=== PATIENT | female | born 1970 | race Caucasian/White ===

== ENCOUNTER 2016-10-26 19:18 | Inpatient (IN) | payer OTHER ==
[~2016-10-26] VITALS: Ht 170.2 cm; Wt 108.9 kg
--- NOTE | 2016-10-26 19:38 | ED.ADGEN ---
Past History Past Medical History: Bipolar, High Cholesterol, Hypertension, Other Past Surgical History: Appendectomy, Cholecystectomy, , Other Alcohol Use: None Drug Use: None Adult General Chief Complaint Chief Complaint ".. I ve been so sick... so much diarrhea... I went at least 25 x last night... 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 I know what to do..... but I can't get over it... I am so dehydrated..." HPI HPI Patient is a 26 year old female who presents with above history and complaints of severe gastroenteritis with florid diarrhea. Patient has hx multiple watery diarrhea stools, she is in excess of 50 stools in the last 2 days. No true specific history of bad food. No recent travel. No history of immunosuppression. 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 Is on city water.. No exotic pets or ill pets. Patient does have a remote history of ischemic colitis problems. No history of C. difficile prior. Patient has been on doxycycline chronically for treatment of acne. Patient normally follows with Dr. Flores. Has seen Dr. Bermeo in past. Patient has tried over- the-counter meds including Imodium with no response. Reports severe episodes of cramping, gas and diarrhea she at times can not control. Patient now reports marked weakness, leg cramping and dizziness. Review of Systems Review of Systems Constitutional: Subjective history of fever or chills [] Eyes: Denies change in visual acuity, redness, or eye pain [] HENT: Denies nasal congestion or sore throat [] Respiratory: Denies cough or shortness of breath [] Cardiovascular: No additional information not addressed in HPI [] GI: Hx. of generalized abdominal pain, nausea, and an episodes of explosive watery diarrhea [] : Denies dysuria or hematuria [] Musculoskeletal: Denies back pain or joint pain [] Integument: History acne Neurologic: Denies headache, focal weakness or sensory changes [] Endocrine: Denies polyuria or polydipsia [] Family History Family History Noncontributory Current Medications Current Medications Current Medications Medications (Trade) Dose Ordered Sig/Shakira Start Time Stop Time Status Last Admin Dose Admin Famotidine (Pepcid) 20 mg 1X ONCE 10/26/16 20:00 10/26/16 20:01 DC 10/26/16 19:58 20 MG Lactated Ringer's (Iv Lactated Ringers) 1,000 ml @ 200 mls/hr Q5H 10/26/16 22:15 Metronidazole (Flagyl Premix) 100 ml @ 200 mls/hr 1X ONCE 10/26/16 20:00 10/26/16 20:29 DC 10/26/16 20:00 200 MLS/HR Morphine Sulfate (Morphine 10mg Syringe) 10 mg TID PRN PRN 10/26/16 22:15 10/26/16 22:43 10 MG Morphine Sulfate 10 mg 10 mg 1X ONCE 10/26/16 20:00 10/26/16 20:01 DC Ondansetron HCl (Zofran) 8 mg 1X ONCE 10/26/16 20:00 10/26/16 20:01 DC 10/26/16 20:00 8 MG Ondansetron HCl 8 mg 8 mg PRN Q4HRS PRN 10/26/16 22:15 10/27/16 22:14 Potassium Chloride (KCl Oral Soln) 40 meq 1X ONCE 10/26/16 20:45 10/26/16 20:46 DC 10/26/16 20:47 40 MEQ Allergies Allergies Allergies Coded Allergies Type Severity Reaction Last Updated Verified acetaminophen Allergy Intermediate Hives 09/07/16 Yes propoxyphene Allergy Intermediate Hives 09/07/16 Yes tetanus and diphtheria toxoids Allergy Intermediate Hives 09/07/16 Yes Physical Exam Physical Exam Constitutional: in acute distress, non-toxic appearance. [] HENT: Normocephalic, atraumatic, bilateral external ears normal, oropharynx dry , no oral exudates, nose normal. [] Acne Eyes: PERRLA, EOMI, conjunctiva normal, no discharge. [] Neck: Normal range of motion, no tenderness, supple, no stridor. [] Cardiovascular:Heart rate regular rhythm, no murmur, PMI to the left Lungs & Thorax: Bilateral breath sounds equal at apexes on auscultation [] Abdomen: Bowel sounds hyperactive, soft, no tenderness, no masses, no pulsatile masses. Old surgical scars. Mild rebound somewhat distended and tympanic. Deferred rectal at this time. Skin: Warm, dry, no erythema, acne Back: No tenderness, no CVA tenderness. [] Extremities: No tenderness, no cyanosis, no clubbing, ROM intact, no edema. Area of ecchymosis and bruising left upper arm. ( Injury from her dog). No true psoas or obturator appreciated Neurologic: Alert and oriented X 3, normal motor function, normal sensory function, no focal deficits noted. [] Psychologic: Affect anxious, judgement normal, mood normal. [] Current Patient Data Vital Signs Vital Signs Date Time Temp Pulse Resp B/P Pulse Ox O2 Delivery O2 Flow Rate FiO2 10/26/16 21:06 73 20 147/90 100 Room Air 10/26/16 19:33 98.7 Lab Results Laboratory Tests Test 10/26/16 19:45 10/26/16 20:05 White Blood Count 4.4x10^3/uL (4.0-11.0) Red Blood Count 4.68x10^6/uL (3.50-5.40) Hemoglobin 14.4g/dL (12.0-15.5) Hematocrit 42.4% (36.0-47.0) Mean Corpuscular Volume 91fL (79-100) Mean Corpuscular Hemoglobin 31pg (25-35) Mean Corpuscular Hemoglobin Concent 34g/dL (31-37) Red Cell Distribution Width 13.6% (11.5-14.5) Platelet Count 217x10^3/uL (140-400) Neutrophils (%) (Auto) 70% (31-73) Lymphocytes (%) (Auto) 18% (24-48) L Monocytes (%) (Auto) 12% (0-9) H Eosinophils (%) (Auto) 0% (0-3) Basophils (%) (Auto) 0% (0-3) Neutrophils # (Auto) 3.1x10^3uL (1.8-7.7) Lymphocytes # (Auto) 0.8x10^3/uL (1.0-4.8) L Monocytes # (Auto) 0.5x10^3/uL (0.0-1.1) Eosinophils # (Auto) 0.0x10^3/uL (0.0-0.7) Basophils # (Auto) 0.0x10^3/uL (0.0-0.2) Maternal Serum HCG Beta Subunit < 1mIU/mL (0-6) Sodium Level 139mmol/L (136-145) Potassium Level 2.8mmol/L (3.5-5.1) *L Chloride Level 102mmol/L (98-107) Carbon Dioxide Level 22mmol/L (21-32) Anion Gap 15 (6-14) H Blood Urea Nitrogen 7mg/dL (7-20) Creatinine 0.9mg/dL (0.6-1.0) Estimated GFR (Cockcroft-Gault) 67.7 Glucose Level 99mg/dL (70-99) Calcium Level 8.5mg/dL (8.5-10.1) Magnesium Level 1.8mg/dL (1.8-2.4) Total Bilirubin 0.3mg/dL (0.2-1.0) Direct Bilirubin 0.1mg/dL (0.0-0.2) Aspartate Amino Transferase (AST) 93U/L (15-37) H Alanine Aminotransferase (ALT) 167U/L (14-59) H Alkaline Phosphatase 130U/L (46-116) H Total Protein 7.5g/dL (6.4-8.2) Albumin 3.9g/dL (3.4-5.0) Lipase 112U/L (73-393) Urine Collection Type Unknown Urine Color Straw Urine Clarity Clear Urine pH 5.5 Urine Specific [place] <=1.005 Urine Protein Neg (NEG-TRACE) Urine Glucose (UA) Negmg/dL (NEG) Urine Ketones (Stick) 15mg/dL (NEG) Urine Blood Small (NEG) Urine Nitrite Neg (NEG) Urine Bilirubin Neg (NEG) Urine Urobilinogen Dipstick 0.2mg/dL (0.2 mg/dL) Urine Leukocyte Esterase Neg (NEG) Urine RBC Occ/HPF (0-2) Urine WBC Occ/HPF (0-4) Urine Squamous Epithelial Cells Many/LPF Urine Bacteria 0/HPF (0-FEW) EKG EKG I interpretation of EKG shows a sinus rhythm at 75 bpm. Nonspecific anterior lateral changes. No findings acute STEMI with contralateral changes [] Radiology/Procedures Radiology/Procedures I interpretation of acute abdomen shows no acute cardiopulmonary findings. There are surgical clips. Nonspecific bowel gas pattern. No free air under the diaphragm. [] Course & Med Decision Making Course & Med Decision Making Pertinent Labs and Imaging studies reviewed. (See chart for details) Discussed presentation, testing and treatment plan with Dr. Guo-Will admit for further evaluation and treatment, potassium replacement and hydration. C. difficile stool currently pending. [] Final Impression Final Impression 1. Gastroenteritis[] 2. Dehydration 3. Elevated alkaline phosphatase, ALT, AST 4. Critical hypokalemia 5. Elevated monocytes Problems: Dragon Disclaimer Dragon Disclaimer This electronic medical record was generated, in whole or in part, using a voice recognition dictation system. MAGI DOW MD Oct 26, 2016 19:38
[2016-10-26] MEDS ORDERED: ONDANSETRON PF 4 MG/2 ML VIAL. IV ONE (20:00)
[2016-10-26] MEDS ORDERED: FAMOTIDINE 20 MG/2 ML VIAL IVP ONE (20:00)
[2016-10-26] MEDS ORDERED: METRONIDAZOLE 500mg PREMIX 100 ML IV ONE (20:00)
[2016-10-26] MEDS: IV RINGERS SOLUTION,LACTATED 1,000 ML IV SCH ×3 (20:00→23:39)
[2016-10-26] MEDS ORDERED: MORPHINE SULFATE 10 MG/ML SYRINGE. SQ ONE (20:00)
[2016-10-26 20:11] LABS: BASO % 0 % (0-3); EOS % 0 % (0-3); HEMATOCRIT 42.4 % (36.0-47.0); HEMOGLOBIN 14.4 g/dL (12.0-15.5); LYMPH # 0.8 x10^3/uL (1.0-4.8); LYMPH % 18 % (24-48); MEAN CORPUSCULAR HEMOGLOBIN 31 pg (25-35); MEAN CORPUSCULAR HGB CONC 34 g/dL (31-37); MEAN CORPUSCULAR VOLUME 91 fL (79-100); MONO # 0.5 x10^3/uL (0.0-1.1); MONO % 12 % (0-9); NEUT # 3.1 x10^3uL (1.8-7.7); NEUT % 70 % (31-73); PLATELET COUNT 217 x10^3/uL (140-400); RED BLOOD COUNT 4.68 x10^6/uL (3.50-5.40); RED CELL DISTRIBUTION WIDTH 13.6 % (11.5-14.5); WHITE BLOOD COUNT 4.4 x10^3/uL (4.0-11.0)
[2016-10-26 20:18] LABS: ALBUMIN 3.9 g/dL (3.4-5.0); CALCIUM 8.5 mg/dL (8.5-10.1); CREATININE 0.9 mg/dL (0.6-1.0); DIRECT BILIRUBIN 0.1 mg/dL (0.0-0.2); GFR 67.7; TOTAL BILIRUBIN 0.3 mg/dL (0.2-1.0); TOTAL PROTEIN 7.5 g/dL (6.4-8.2)
[2016-10-26 20:21] LABS: POTASSIUM 2.8 mmol/L (3.5-5.1)
[2016-10-26 20:36] LABS: BACTERIA,URINE 0 /HPF (0-FEW); BILIRUBIN,URINE NEG (NEG); CLARITY,URINE CLEAR; COLOR,URINE STRAW; GLUCOSE,URINE NEG (NEG); NITRITE,URINE NEG (NEG); RBC,URINE OCC /HPF (0-2); SQUAMOUS EPITHELIAL CELL,UR MANY /LPF; UROBILINOGEN,URINE 0.2 mg/dL (0.2 mg/dL); WBC,URINE OCC /HPF (0-4)
[2016-10-26] MEDS ORDERED: POTASSIUM CHLORIDE 20 MEQ/15 ML ORAL LIQUID. PO ONE (20:45)
--- NOTE | 2016-10-26 22:28 | ACF ---
Admission Criteria Forms GASTROENTERITIS Clinical Indications for Admission to Inpatient Care (Place 'X' for any and all applicable criteria): Admission is indicated for ANY ONE of the following (1)(2)(3)(4)(5)(6): [X]I. Inpatient admission required rather than observation care (Also use Gastroenteritis: Observation Care as appropriate) because of ANY ONE of the following: [ ]a) Vomiting that is severe or persistent [X]b) Dehydration that is severe or persistent [ ]c) Hemodynamic instability that is severe or persistent [ ]d) Signs of intestinal obstruction or peritonitis [A] [ ]e) Hemolytic uremic syndrome is diagnosed. [ ]f) Absent bowel sounds with complete ileus (2) [ ]g) IV fluid to replace significant ongoing losses (greater than 3 L/m2 per day) [ ]h) Parenteral nutrition regimen that must be implemented on inpatient basis [ ]i) Other condition, treatment or monitoring requiring inpatient admission [ ]II. Suspected severe infection (eg, presence of high fever, severe or bloody diarrhea)(7)(8) [ ]III. Severe abdominal tenderness [ ]IV. Toxic megacolon Extended stay beyond goal length of stay may be needed for(4)(5)(6)(18) [ ]a) Persistent vital sign changes, severe electrolyte imbalance, or ongoing fluid losses that require continued hospitalization [ ]b) Other diagnosed cause for gastrointestinal symptoms (eg, intestinal obstruction,inflammatory bowel disease) that requires continued hospitalization [ ]c) Severe Clostridium difficile infection(8)(22) [ ]d) Bacterial dysentery(7) [ ]e) Radiation gastroenteritis [ ]f) Endoscopy with lesion [ ]g) Clinically significant medical comorbidities that require inpatient care [ ]h) Older patients (65 years or older) [ ]i) Hemolytic uremic syndrome (20) [ ]j) Toxic megacolon The original [employer] content created by [employer] has been revised. The portions of the content which have been revised are identified through the use of italic text or in bold, and [facility] has neither reviewed nor approved the modified material. All other unmodified content is copyright [facility]. Please see references footnoted in the original [facility] edition 2016 Admission Criteria Met?: Yes SRINIVASAN PERALES Oct 26, 2016 22:27
[2016-10-26] MEDS: MORPHINE SULFATE 10 MG/ML SYRINGE. SQ PRN (22:43)
--- NOTE | 2016-10-26 22:49 | EKG ---
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
[2016-10-26 23:39] VITALS: BP 148/95
[2016-10-26] MEDS: ONDANSETRON PF 4 MG/2 ML VIAL. IV PRN (23:49)
[2016-10-27] MEDS ORDERED: CLON0.5T PO (00:55)
[2016-10-27] MEDS ORDERED: DULO60CA6 PO (00:55)
[2016-10-27] MEDS ORDERED: DOXY100T9 PO (00:56)
[2016-10-27] MEDS ORDERED: METO100T5 PO (00:57)
[2016-10-27] MEDS ORDERED: NORT25CA PO (00:58)
[2016-10-27] MEDS ORDERED: TOPI50TA38 PO (00:59)
[2016-10-27] MEDS: IV RINGERS SOLUTION,LACTATED 1,000 ML IV SCH ×3 (03:41→13:15)
[2016-10-27] MEDS: ONDANSETRON PF 4 MG/2 ML VIAL. IV PRN ×2 (05:03→16:07)
[2016-10-27] MEDS: POTASSIUM CHLORIDE 20 MEQ/15 ML ORAL LIQUID. PO SCH ×2 (05:04→17:38)
[2016-10-27 05:20] VITALS: BP 142/87
[2016-10-27 06:40] LABS: BASO % 0 % (0-3); EOS % 1 % (0-3); HEMOGLOBIN 13.1 g/dL (12.0-15.5); LYMPH % 30 % (24-48); MEAN CORPUSCULAR HEMOGLOBIN 31 pg (25-35); MEAN CORPUSCULAR HGB CONC 34 g/dL (31-37); MEAN CORPUSCULAR VOLUME 91 fL (79-100); MONO # 0.4 x10^3/uL (0.0-1.1); MONO % 12 % (0-9); NEUT # 1.9 x10^3uL (1.8-7.7); NEUT % 57 % (31-73); PLATELET COUNT 185 x10^3/uL (140-400); RED BLOOD COUNT 4.28 x10^6/uL (3.50-5.40); RED CELL DISTRIBUTION WIDTH 13.6 % (11.5-14.5); WHITE BLOOD COUNT 3.4 x10^3/uL (4.0-11.0)
[2016-10-27 06:45] LABS: ALBUMIN 3.2 g/dL (3.4-5.0); CALCIUM 8.1 mg/dL (8.5-10.1); CREATININE 0.9 mg/dL (0.6-1.0); GFR 67.7; POTASSIUM 3.5 mmol/L (3.5-5.1); TOTAL BILIRUBIN 0.3 mg/dL (0.2-1.0); TOTAL PROTEIN 6.3 g/dL (6.4-8.2)
[2016-10-27] MEDS ORDERED: PROMETHAZINE 12.5 MG in IV NORMAL SALINE 50ML 50 ML IV PRN (07:45)
--- NOTE | 2016-10-27 07:54 | RAD ---
Acute abdomen series with chest, 3 views, 10/26/2016: History: Abdominal pain, nausea, diarrhea Gas is present in large and small bowel without significant bowel distention. There are scattered air-fluid levels in the GI tract. No free air is seen in the abdomen. Surgical clips are present in the right upper quadrant. There is no evidence of organomegaly. Small radiopacities in the right midabdomen are probably surgical sutures. The heart size is normal. No pulmonary infiltrate is seen. There is no evidence of pleural fluid. IMPRESSION: Scattered air-fluid levels in the GI tract suggests a mild ileus.
[2016-10-27] MEDS ORDERED: PROMETHAZINE 12.5 MG in IV NORMAL SALINE 50ML 50 ML IV ONE (08:00)
[2016-10-27] MEDS: DULOXETINE HCL 60 MG CAPSULE.DR. PO SCH ×2 (09:00→20:30)
[2016-10-27] MEDS: TOPIRAMATE 25 MG TABLET. PO SCH ×2 (09:00→20:31)
[2016-10-27] MEDS: METRONIDAZOLE 500 MG TABLET PO SCH ×2 (09:00→13:50)
[2016-10-27] MEDS ORDERED: MVI, ADULT NO.4 WITH VIT K 10 ML, FOLIC ACID 1 MG, THIAMINE 100 MG in IV DEXTROSE 5%-LA... IV ONE ×4 (09:00)
[2016-10-27] MEDS: CLONAZEPAM 0.5 MG TABLET PO SCH ×2 (09:00→20:30)
--- NOTE | 2016-10-27 11:38 | RAD ---
PROCEDURE CT abdomen pelvis with intravenous contrast and oral contrast. HISTORY Elevated liver enzymes and abdominal distention. Diarrhea for 2 days. TECHNIQUE After administration of oral and intravenous contrast, 75 milliliters Omnipaque 300, CT of the abdomen and pelvis was performed. Exposure: One or more of the following individualized dose reduction techniques were utilized for this examination: 1. Automated exposure control. 2. Adjustment of the mA and/or kV according to patient size. 3. Use of iterative reconstruction technique. COMPARISON None. FINDINGS Liver, spleen, pancreas, and bilateral adrenal glands are unremarkable. Gallbladder is absent. Bilateral kidneys enhance symmetrically. No bowel obstruction or inflammation is appreciated. Appendix is absent. Urinary bladder is unremarkable. Uterus and adnexa have unremarkable CT appearance. No free air or free fluid is seen in the abdomen or pelvis. IMPRESSION No acute abnormality identified in the abdomen or pelvis. Electronically signed by: Sylvester Putnam MD (Oct 27, 2016 11:38:05)
[2016-10-27 11:43] VITALS: BP 148/88
[2016-10-27] MEDS: PANTOPRAZOLE IV PUSH 40 MG VIAL. IVP SCH (13:52)
[2016-10-27 14:07] VITALS: BP 158/94
[2016-10-27] MEDS ORDERED: IV NORMAL SALINE 250ML 250 ML ONE (14:30)
--- NOTE | 2016-10-27 14:53 | HP ---
ADMIT DATE: 10/26/2016 REASON FOR ADMISSION: Severe diarrhea and dehydration. 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 Also, reported up to a week ago that her stomach had been bothering her. She had taken some Imodium, but had 20 stools and was definitely not feeling well. She had also seen the orthopedic physician for some problem she was having with her arm related to a [place] stepping on her arm. Last Tuesday night, she went to bed, she worked all day yesterday even though she was dizzy and had diarrhea. She barely made it to her car and called an ambulance from her car. She continued to have a large amount of diarrhea and came to the Emergency Room yesterday evening. Denies fever, but did have tachycardia. PAST MEDICAL HISTORY: 1. Migraine headaches, fatty liver, hypertension, tachycardia, acne. 2. Previous history of liver enzymes being elevated and some treatment by a music promoter at [facility], where she required an MRCP and actually had to have her sphincter of Oddi cut. PAST SURGICAL HISTORY: Appendectomy, 3 C-sections, endometrial ablation, sphincterotomy of the sphincter Oddi. ALLERGIES: TYLENOL, PROPOXYPHENE, TETANUS AND DIPHTHERIA TOXOIDS. MEDICATIONS: Reviewed and are available on the MAR. REVIEW OF SYSTEMS: Reports irregular periods, low estrogen level, recent trial with progesterone, weight loss of 25 pounds, which was intentional. 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 No tobacco, alcohol was not asked. OBJECTIVE: VITAL SIGNS: Blood pressure 142/87, pulse 72, respirations 18, pulse ox 100% on room air, and temperature 98.3. Height 67 inches, weight 239 pounds. GENERAL: A 46-year-old in moderate distress. HEENT: Her hearing was normal. Her eyes were clear. Her nose was patent. Tongue was dry. NECK: Supple. LUNGS: Clear to auscultation. CARDIOVASCULAR: Regular rhythm and rate. ABDOMEN: Mildly distended and tender throughout, particularly in the right lower quadrant. Bowel sounds were positive. EXTREMITIES: Without edema. I did not feel any cords. Left upper arm; some bruising from a dog stepping on her arm. SKIN: Face is flushed. NEUROLOGIC: Intact. LABORATORY DATA: White blood cell count this morning is 3.4 with mildly elevated monocytes. Chemistry at admission potassium was 2.8, 3.5 this morning. Liver function tests have more than doubled; AST is 228, ALT 258, alkaline phosphatase 128, and albumin is 3.2. Lipase is normal. CAT scan of the abdomen and pelvis also normal. ASSESSMENT: 1. Acute gastroenteritis, viral versus bacterial. The low white count points more to viral, hepatitis screen pending. 2. Hypokalemia, being replaced. 3. Elevated liver function tests, questionable etiology, probably due to gastroenteritis. 4. Gastroenteritis with diarrhea -- stool difficile pending. 5. Acne and had been on doxycycline for a prolonged period of time -- stool difficile pending. 6. Dehydration, being fluid replaced. 7. Nausea being treated. PLAN: IV fluids, bowel rest, monitor diarrhea, await the C. diff test, hold the doxycycline, give antiemetics and continue to support her symptoms. PAUL GUSTAFSON DO DR: OSIEL/adriana JOB#: [id number] / [id number]
[2016-10-27] MEDS: METRONIDAZOLE 500mg PREMIX 100 ML IV SCH ×2 (15:00→20:55)
[2016-10-27] MEDS: MORPHINE SULFATE 10 MG/ML SYRINGE. SQ PRN (16:16)
[2016-10-27] MEDS ORDERED: MAG HYDROX/AL HYDROX/SIMETH 30 ML ORAL.SUSP PO PRN (16:30)
[2016-10-27] MEDS: POTASSIUM CHLORIDE 40 MEQ in IV RINGERS SOLUTION,LACTATED 1,000 ML IV SCH ×2 (17:39→21:40)
[2016-10-27 19:00] VITALS: BP 155/91
[2016-10-27] MEDS ORDERED: PROMETHAZINE 25 MG/ML VIAL IV ONE (19:02)
[2016-10-27] MEDS ORDERED: IV NORMAL SALINE 50ML 50 ML ONE (19:02)
[2016-10-27] MEDS ORDERED: MORPHINE SULFATE 4 MG/ML DISP.SYRIN. IV ONE (19:30)
[2016-10-27] MEDS ORDERED: METOPROLOL SUCC 24HR ER 25 MG TAB.ER.24H. PO SCH (20:30)
[2016-10-27] MEDS ORDERED: MORPHINE SULFATE 4 MG/ML DISP.SYRIN. IV PRN (20:30)
[2016-10-27] MEDS: NORTRIPTYLINE 25 MG CAPSULE PO SCH (20:31)
--- NOTE | 2016-10-27 20:38 | RAD ---
PROCEDURE AP abdomen radiograph 10/27/2016 HISTORY Left lower quadrant abdominal pain with diarrhea. FINDINGS Two AP supine digital radiographs of the abdomen/pelvis were obtained. Comparison study is dated 10/27/2016. Surgical clips are seen within the right upper quadrant of the abdomen consistent with a cholecystectomy. The abdominal bowel gas pattern is nonobstructive. Contrast is seen within the distal transverse colon, the descending colon, the sigmoid colon and rectum. No radiopaque calculus is seen. The osseous structures are unchanged. IMPRESSION Nonobstructive bowel gas pattern. Electronically signed by: Singh Oconnor MD (Oct 27, 2016 20:36:23)
[2016-10-27] MEDS ORDERED: ATROPINE PO PRN (21:30)
[2016-10-27] MEDS ORDERED: HYOSCY PO PRN (21:30)
[2016-10-27] MEDS ORDERED: PHENOBARB PO PRN (21:30)
[2016-10-27] MEDS ORDERED: SCOP PO PRN (21:30)
[2016-10-27] MEDS ORDERED: ZOLPIDEM 5 MG TABLET. PO PRN (21:45)
[2016-10-27] MEDS: KETOROLAC 30 MG/ML VIAL. IV PRN (21:48)
[2016-10-27 22:45] VITALS: BP 125/80
[2016-10-28] MEDS: POTASSIUM CHLORIDE 40 MEQ in IV RINGERS SOLUTION,LACTATED 1,000 ML IV SCH ×2 (01:50→13:36)
[2016-10-28] MEDS: POTASSIUM CHLORIDE 20 MEQ/15 ML ORAL LIQUID. PO SCH ×2 (05:02→18:00)
[2016-10-28] MEDS: METRONIDAZOLE 500mg PREMIX 100 ML IV SCH ×3 (05:02→22:06)
[2016-10-28] MEDS: KETOROLAC 30 MG/ML VIAL. IV PRN ×4 (05:02→22:07)
[2016-10-28 05:25] VITALS: BP 142/94
[2016-10-28 06:44] LABS: BASO # 0.1 x10^3/uL (0.0-0.2); BASO % 2 % (0-3); EOS % 1 % (0-3); HEMATOCRIT 41.3 % (36.0-47.0); HEMOGLOBIN 13.7 g/dL (12.0-15.5); LYMPH % 28 % (24-48); MEAN CORPUSCULAR HEMOGLOBIN 31 pg (25-35); MEAN CORPUSCULAR HGB CONC 33 g/dL (31-37); MEAN CORPUSCULAR VOLUME 92 fL (79-100); MONO # 0.5 x10^3/uL (0.0-1.1); MONO % 14 % (0-9); NEUT # 1.9 x10^3uL (1.8-7.7); NEUT % 56 % (31-73); PLATELET COUNT 203 x10^3/uL (140-400); RED CELL DISTRIBUTION WIDTH 13.5 % (11.5-14.5); WHITE BLOOD COUNT 3.4 x10^3/uL (4.0-11.0)
[2016-10-28 07:01] LABS: ALBUMIN 3.3 g/dL (3.4-5.0); CREATININE 0.9 mg/dL (0.6-1.0); GFR 67.7; MAGNESIUM 1.7 mg/dL (1.8-2.4); POTASSIUM 4.5 mmol/L (3.5-5.1); TOTAL BILIRUBIN 0.3 mg/dL (0.2-1.0); TOTAL PROTEIN 6.6 g/dL (6.4-8.2)
[2016-10-28] MEDS ORDERED: HYOSCY PO PRN (07:45)
[2016-10-28] MEDS ORDERED: PHENOBARB PO PRN (07:45)
[2016-10-28] MEDS ORDERED: SCOP PO PRN (07:45)
[2016-10-28] MEDS ORDERED: ATROPINE PO PRN (07:45)
[2016-10-28] MEDS: PANTOPRAZOLE IV PUSH 40 MG VIAL. IVP SCH (08:48)
[2016-10-28] MEDS: TOPIRAMATE 25 MG TABLET. PO SCH ×2 (08:49→20:07)
[2016-10-28] MEDS: CLONAZEPAM 0.5 MG TABLET PO SCH ×2 (08:49→20:07)
[2016-10-28] MEDS: DULOXETINE HCL 60 MG CAPSULE.DR. PO SCH ×2 (08:49→20:07)
[2016-10-28] MEDS: METOPROLOL SUCC 24HR ER 100 MG TAB.ER.24H. PO SCH (08:49)
[2016-10-28 10:07] LABS: HCV ANTIBODY <0.1 s/co ratio (0.0-0.9); HEP A IGM ABDY Negative (Negative)
[2016-10-28 10:15] LABS: C DIFF BY PCR Negative (Negative)
[2016-10-28] MEDS ORDERED: MAGNESIUM SULFATE 1GM 100 ML IV ONE (10:30)
[2016-10-28 10:43] VITALS: BP 134/85
[2016-10-28 15:01] VITALS: BP 137/87
[2016-10-28] MEDS ORDERED: SACCHAROMYCES BOULARDII 250 MG CAPSULE. PO SCH (17:00)
[2016-10-28] MEDS: RINGERS LACTATED IV SCH ×2 (17:50→20:10)
[2016-10-28] MEDS: POTASSIUM CHLORIDE IV SCH ×2 (17:50→20:10)
--- NOTE | 2016-10-28 18:13 | RAD ---
PROCEDURE Complete abdomen ultrasound HISTORY Abdominal pain and diarrhea TECHNIQUE Grayscale and color Doppler sonography COMPARISON CT abdomen and pelvis October 27, 2016 FINDINGS Shadowing limits visualization of segments of the pancreas head and tail, distal aorta and majority of the IVC. The visualized segments of these structures are normal. Normal liver echogenicity. Superior segments of the liver poorly visualized due to rib shadowing. No liver mass documented. Normal direction of blood flow of the portal vein. No biliary ductal dilation the common bile duct has a diameter 4 millimeters. Cholecystectomy. Right renal length 10.7 centimeters. Left renal length 10.0 centimeters. Limited visualization of the lower poles of the kidneys due to shadowing. No renal mass or hydronephrosis evident. Spleen length 10.1 centimeters. IMPRESSION Normal exam. See above. Electronically signed by: German Rojas MD (Oct 28, 2016 18:12:20)
--- NOTE | 2016-10-28 18:15 | RAD ---
PROCEDURE Pelvic ultrasound HISTORY Left lower quadrant pelvic pain TECHNIQUE Transabdominal and transvaginal transducers utilized. COMPARISON CT abdomen and pelvis October 27 2016 FINDINGS Transabdominal imaging demonstrates anteverted uterus measuring 8.2 x 2.9 x 5.8 centimeters. Limited visualization of the endometrium, the telehealth nurse educator measures the endometrium thickness of 0.5 centimeters. Limited visualization of the ovaries, telehealth nurse educator measures structure labeled as left ovary as 1.8 x 1.4 x 2.1 centimeters and structure labeled as right ovary measures 1.8 x 1.3 x 2.0 centimeters. Transvaginal imaging demonstrates anteverted uterus measured as 7.7 x 2.7 x 4.7 centimeters. Shadowing limits visualization of the endometrium and uterine fundus, the telehealth nurse educator measures endometrium thickness as 0.7 centimeters. Limited visualization of the ovaries due to shadowing structure labeled as right ovary measured as 1.9 x 1.6 x 1.9 centimeters and structure labeled as left ovary measured as 1.7 x 1.3 x 1.7 centimeters. There is grossly intact bilateral ovarian blood flow documented by duplex Doppler sonography. No pelvic fluid. IMPRESSION Normal exam. Electronically signed by: German Rojas MD (Oct 28, 2016 18:14:49)
[2016-10-28 19:00] VITALS: BP 135/94
[2016-10-28] MEDS: NORTRIPTYLINE 25 MG CAPSULE PO SCH (20:07)
[2016-10-28] MEDS ORDERED: LOPERAMIDE 2 MG CAPSULE PO PRN (21:00)
[2016-10-28 23:26] VITALS: BP 117/77
--- NOTE | 2016-10-29 01:28 | PN ---
DATE: 10/28/2016 PROBLEMS: 1. Viral gastroenteritis. 2. Hypokalemia. 3. Hypomagnesemia. 4. Elevated liver function tests, now trending down. 5. Severe diarrhea, improving. 6. Dehydration, improving. 7. Nausea, improved. 8. History of sphincter of Oddi, sphincterotomy. SUBJECTIVE: This is a 46-year-old female admitted with severe diarrhea, dehydration, hypokalemia and now has developed some left lower quadrant pain. She has had a CAT scan, which was negative and a KUB last night, which was negative. She has a slightly low white count pointing to viral etiology. She is somewhat bloated. She is still having stools, much less than before. She has had about six as of 2 p.m., but is having some abdominal pain. OBJECTIVE: GENERAL: Intake 4350, output 3300 plus 1050. VITAL SIGNS: Blood pressure 134/85, pulse 59, respirations 18, pulse ox is 99% on room air. HEENT: Face is flushed. Tongue is moist than it was. She has two cold sores on the top of her hip that are resolving. LUNGS: Clear. CARDIOVASCULAR: Regular rhythm and rate. ABDOMEN: Moderately distended, good bowel sounds throughout and moderately tender in the left lower and right quadrant. The patient is on her menses. LABORATORY DATA: Today, potassium is 4.5, slightly elevated chloride, magnesium 1.7, calcium little bit low at 8 with an albumin of 3.3. AST is 92, ALT is 201, alkaline phosphatase is 123. They are trending back down. Abdominal ultrasound is scheduled for a little bit later on today. PLAN: I spoke with the precision farming coordinator and I discussed her case with Dr. Guo. We will await the results of the ultrasound. Continue IV fluids. Perhaps IV Flagyl could be giving her more abdominal pain or discomfort, and may discontinue it as we are just covering her for gastroenteritis. Stool cultures still pending. We will see her again tomorrow. PAUL GUSTAFSON DO DR: OSIEL/adriana JOB#: [id number] / [id number]
[2016-10-29] MEDS: METRONIDAZOLE 500mg PREMIX 100 ML IV SCH (05:51)
[2016-10-29 06:10] VITALS: BP 127/80
[2016-10-29 06:51] LABS: BASO % 1 % (0-3); EOS # 0.1 x10^3/uL (0.0-0.7); EOS % 2 % (0-3); HEMATOCRIT 39.8 % (36.0-47.0); HEMOGLOBIN 13.2 g/dL (12.0-15.5); LYMPH # 0.8 x10^3/uL (1.0-4.8); LYMPH % 30 % (24-48); MEAN CORPUSCULAR HEMOGLOBIN 30 pg (25-35); MEAN CORPUSCULAR HGB CONC 33 g/dL (31-37); MEAN CORPUSCULAR VOLUME 91 fL (79-100); MONO # 0.4 x10^3/uL (0.0-1.1); MONO % 14 % (0-9); NEUT # 1.5 x10^3uL (1.8-7.7); NEUT % 54 % (31-73); PLATELET COUNT 168 x10^3/uL (140-400); RED BLOOD COUNT 4.36 x10^6/uL (3.50-5.40); RED CELL DISTRIBUTION WIDTH 13.4 % (11.5-14.5); WHITE BLOOD COUNT 2.7 x10^3/uL (4.0-11.0)
[2016-10-29 06:56] LABS: CALCIUM 8.3 mg/dL (8.5-10.1); CREATININE 0.8 mg/dL (0.6-1.0); GFR 77.6; MAGNESIUM 2.1 mg/dL (1.8-2.4); POTASSIUM 4.6 mmol/L (3.5-5.1); TOTAL BILIRUBIN 0.2 mg/dL (0.2-1.0)
[2016-10-29] MEDS ORDERED: PANTOPRAZOLE 40 MG TABLET. PO SCH (07:30)
[2016-10-29 08:17] VITALS: BP 127/80
[2016-10-29] MEDS: METOPROLOL SUCC 24HR ER 100 MG TAB.ER.24H. PO SCH (08:17)
[2016-10-29] MEDS: CLONAZEPAM 0.5 MG TABLET PO SCH (08:17)
[2016-10-29] MEDS: TOPIRAMATE 25 MG TABLET. PO SCH (08:17)
[2016-10-29] MEDS: DULOXETINE HCL 60 MG CAPSULE.DR. PO SCH (08:17)
--- NOTE | 2016-10-29 10:07 | DS ---
DATE OF DISCHARGE: 10/26/2016 DISCHARGE DIAGNOSES: 1. Viral gastritis. 2. Hypokalemia, resolved. 3. Hypomagnesemia, resolved. 4. Elevated liver function tests trending down. 5. Severe diarrhea, resolved. 6. Dehydration, resolved. 7. Nausea, resolved. 8. History of sphincter of Oddi dysfunction. 9. Moderate protein malnutrition secondary to prolonged n.p.o. HOSPITAL COURSE: A 46-year-old female who was admitted with severe diarrhea, dehydration, and hypokalemia. She also developed some abdominal pain during her hospitalization and subsequent KUB ultrasound and CAT scan of the abdomen and pelvis was negative. She was aggressively treated with IV fluids and antiemetics, covered with metronidazole, and received pain medication. On the day of discharge, she was feeling much better and not had a stool since yesterday evening. OBJECTIVE: VITAL SIGNS: Blood pressure 127/80, pulse 65, respirations 18, and temperature is 98.4. HEENT: Face is flushed. Her tongue was moist. No longer ____ her tongue. NECK: Supple. LUNGS: Clear. CARDIOVASCULAR: Regular rhythm and rate. ABDOMEN: Soft and less distended. Bowel sounds positive. Minimal pain in the left lower quadrant. EXTREMITIES: Without edema. LABORATORY DATA: White cell count is 2.7. CMP shows elevated chloride most likely secondary to IV fluids, but calcium up to 8.3. AST is 48 down from a maximum of 228 and ALT 133 down from 258. Normal alkaline phosphatase now. Albumin is 3.0. DISPOSITION: To home. MEDICATIONS: See MRAD. Take it easy over the weekend. Eat soft diet. Have blood test rechecked for the low white count and her liver function. Also during her hospitalization I discussed her case with Dr. Guo and her cutter grinder. PAUL GUSTAFSON DO DR: OSIEL/adriana JOB#: [id number] / [id number]
== END 2016-10-29 10:05 | disposition home or self-care (01) | DRG 392 ==
LOC: ER 19:26 → 1 SOUTH 22:24
PROVIDERS: ADMIT Family Medicine; ATTEND Family Medicine
DX: A08.4 Viral intestinal infection, unspecified (principal); E44.0 Moderate protein-calorie malnutrition; E78.00 Pure hypercholesterolemia, unspecified; E83.42 Hypomagnesemia; E86.0 Dehydration; E87.6 Hypokalemia; G43.909 Migraine, unspecified, not intractable, without status migrainosus; I10 Essential (primary) hypertension; K76.0 Fatty (change of) liver, not elsewhere classified; Z87.19 Personal history of other diseases of the digestive system; Z90.49 Acquired absence of other specified parts of digestive tract; Z88.1 Allergy status to other antibiotic agents; Z88.8 Allergy status to other drugs, medicaments and biological substances; Z88.7 Allergy status to serum and vaccine; Z68.37 Body mass index [BMI] 37.0-37.9, adult
CPT/HCPCS: 36415; 74000; 74022; 74177; 76700; 76830; 76856; 80048; 80053; 80074; 80076; 81001; 83690; 83735; 84702; 85027; 87040; 87045; 87324; 93005; 96374; 96375; C9113; G0238; J1885; J2270; J2405; J2550; J3475; J3490; J7120; S0028; 99285-25

== ENCOUNTER 2017-01-25 14:15 | Emergency (ER) | payer OTHER ==
[~2017-01-25 14:15] MED LIST: CLON0.5T PO; DOXY100T9 PO; DULO60CA6 PO; METO100T5 PO; NORT25CA PO; TOPI50TA38 PO
[2017-01-25] MEDS ORDERED: IV NORMAL SALINE 1,000ML 1,000 ML IV ONE (15:00)
[2017-01-25 15:09] LABS: BASO % 0 % (0-3); EOS % 0 % (0-3); HEMATOCRIT 42.3 % (36.0-47.0); HEMOGLOBIN 14.6 g/dL (12.0-15.5); LYMPH # 1.9 x10^3/uL (1.0-4.8); LYMPH % 23 % (24-48); MEAN CORPUSCULAR HEMOGLOBIN 31 pg (25-35); MEAN CORPUSCULAR HGB CONC 34 g/dL (31-37); MEAN CORPUSCULAR VOLUME 89 fL (79-100); MONO # 0.4 x10^3/uL (0.0-1.1); MONO % 5 % (0-9); NEUT # 5.8 x10^3uL (1.8-7.7); NEUT % 71 % (31-73); PLATELET COUNT 224 x10^3/uL (140-400); RED BLOOD COUNT 4.75 x10^6/uL (3.50-5.40); RED CELL DISTRIBUTION WIDTH 13.5 % (11.5-14.5); WHITE BLOOD COUNT 8.3 x10^3/uL (4.0-11.0)
[2017-01-25] MEDS ORDERED: KETOROLAC 30 MG/ML VIAL. IV ONE (15:10)
[2017-01-25] MEDS ORDERED: ONDANSETRON PF 4 MG/2 ML VIAL. IV ONE (15:10)
[2017-01-25 15:11] LABS: POTASSIUM 3.8 mmol/L (3.5-5.1)
[2017-01-25 15:13] LABS: BILIRUBIN,URINE NEG (NEG); CLARITY,URINE HAZY; COLOR,URINE YELLOW; GLUCOSE,URINE NEG (NEG)
[2017-01-25 15:14] LABS: AMORPHOUS SEDIMENT,UR PRESENT /HPF; BACTERIA,URINE FEW /HPF (0-FEW); GRANULAR CASTS,URINE OCC /HPF; NITRITE,URINE NEG (NEG); RBC,URINE OCC /HPF (0-2); SQUAMOUS EPITHELIAL CELL,UR FEW /LPF; UROBILINOGEN,URINE 0.2 mg/dL (0.2 mg/dL); WBC,URINE OCC /HPF (0-4)
[2017-01-25] MEDS: fentaNYL PF 100 MCG/2 ML VIAL IV PRN ×2 (16:19→18:01)
--- NOTE | 2017-01-25 16:30 | PHYS DOC ---
Past History Past Medical History: Bipolar, High Cholesterol, Hypertension, Other Past Surgical History: Appendectomy, Cholecystectomy, , Other Alcohol Use: None Drug Use: None Adult General Chief Complaint Chief Complaint: FLANK PAIN HPI HPI Patient is a 46 year old female who presents with right sided back pain. She reports pain x 6 days with no trauma. Pain is in lower back, occasionally radiates to flank & right groin. She reports urinary frequency, urgency, dysuria. She denies fevers/chills, nausea, vomiting, diarrhea, constipation, hematuria, vaginal bleeding, discharge. No lower extremity numbness/weakness, saddle anesthesia, bowel/bladder incontinence/retention. Denies history of previous similar pain. History of appendectomy & cholecystectomy. PCP is DR. Jones. Review of Systems Review of Systems Constitutional: Denies fever or chills Eyes: Denies change in visual acuity HENT: Denies nasal congestion or sore throat Respiratory: Denies cough or shortness of breath Cardiovascular: Denies chest pain GI: REports abdominal pain, denies nausea, vomiting, bloody stools or diarrhea : Reports dysuria denies hematuria Musculoskeletal: Reports back pain, denies joint pain Integument: Denies rash or skin lesions Neurologic: Denies headache, focal weakness or sensory changes Current Medications Current Medications Current Medications Medications (Trade) Dose Ordered Sig/Shakira Start Time Stop Time Status Last Admin Dose Admin Fentanyl Citrate (Fentanyl 2ml Vial) 50 mcg PRN Q15MIN PRN 01/25/17 16:00 01/26/17 15:59 01/25/17 16:19 50 MCG Ketorolac Tromethamine (Toradol) 30 mg 1X ONCE 01/25/17 15:10 01/25/17 15:11 DC 01/25/17 15:00 30 MG Ondansetron HCl (Zofran) 4 mg 1X ONCE 01/25/17 15:10 01/25/17 15:11 DC 01/25/17 15:00 4 MG Sodium Chloride 1,000 ml @ 1,000 mls/hr 1X ONCE 01/25/17 15:00 01/25/17 15:59 DC 01/25/17 15:00 1,000 MLS/HR Allergies Allergies Allergies Coded Allergies Type Severity Reaction Last Updated Verified acetaminophen Allergy Intermediate Hives 09/07/16 Yes propoxyphene Allergy Intermediate Hives 09/07/16 Yes tetanus and diphtheria toxoids Allergy Intermediate Hives 09/07/16 Yes Physical Exam Physical Exam Constitutional: obese, no acute distress, non-toxic appearance. HENT: Normocephalic, atraumatic, bilateral external ears normal, oropharynx moist, nose normal. Eyes: conjunctiva normal, no discharge. Neck: supple, no stridor. Cardiovascular: RRR, no murmurs, no edema. Lungs & Thorax: LCTAB, no wheezing, no respiratory distress. Abdomen: soft, nontender, nondistended. no masses or pulsatile masses, no rebound/guarding Skin: Warm, dry, no erythema, no rash. Back: right lower back tenderness with palpation, no CVA tenderness or spinal tenderness, no step offs.. Extremities: No tenderness, no edema. Neurologic: Alert and oriented X 3, symmetric strength/sensation to LE, no focal deficits noted. Psychologic: Affect normal, judgement normal, mood normal. Current Patient Data Vital Signs Vital Signs Date Time Temp Pulse Resp B/P (MAP) Pulse Ox O2 Delivery O2 Flow Rate FiO2 01/25/17 16:19 18 98 Room Air 01/25/17 16:02 78 130/76 (94) Lab Results Laboratory Tests Test 01/25/17 14:45 01/25/17 14:50 01/25/17 14:58 White Blood Count 8.3 x10^3/uL (4.0-11.0) Red Blood Count 4.75 x10^6/uL (3.50-5.40) Hemoglobin 14.6 g/dL (12.0-15.5) Hematocrit 42.3 % (36.0-47.0) Mean Corpuscular Volume 89 fL (79-100) Mean Corpuscular Hemoglobin 31 pg (25-35) Mean Corpuscular Hemoglobin Concent 34 g/dL (31-37) Red Cell Distribution Width 13.5 % (11.5-14.5) Platelet Count 224 x10^3/uL (140-400) Neutrophils (%) (Auto) 71 % (31-73) Lymphocytes (%) (Auto) 23 % (24-48) L Monocytes (%) (Auto) 5 % (0-9) Eosinophils (%) (Auto) 0 % (0-3) Basophils (%) (Auto) 0 % (0-3) Neutrophils # (Auto) 5.8 x10^3uL (1.8-7.7) Lymphocytes # (Auto) 1.9 x10^3/uL (1.0-4.8) Monocytes # (Auto) 0.4 x10^3/uL (0.0-1.1) Eosinophils # (Auto) 0.0 x10^3/uL (0.0-0.7) Basophils # (Auto) 0.0 x10^3/uL (0.0-0.2) Sodium Level 140 mmol/L (136-145) Potassium Level 3.8 mmol/L (3.5-5.1) Chloride Level 106 mmol/L (98-107) Carbon Dioxide Level 23 mmol/L (21-32) Anion Gap 11 (6-14) Blood Urea Nitrogen 11 mg/dL (7-20) Creatinine 1.0 mg/dL (0.6-1.0) Estimated GFR (Cockcroft-Gault) 60.0 Glucose Level 103 mg/dL (70-99) H Calcium Level 9.0 mg/dL (8.5-10.1) Urine Collection Type Void Urine Color Yellow Urine Clarity Hazy Urine pH 7.0 Urine Specific [place] 1.020 Urine Protein 30 mg/dl (NEG-TRACE) Urine Glucose (UA) Neg mg/dL (NEG) Urine Ketones (Stick) Trace mg/dL (NEG) Urine Blood Neg (NEG) Urine Nitrite Neg (NEG) Urine Bilirubin Neg (NEG) Urine Urobilinogen Dipstick 0.2 mg/dL (0.2 mg/dL) Urine Leukocyte Esterase Neg (NEG) Urine RBC Occ /HPF (0-2) Urine WBC Occ /HPF (0-4) Urine Squamous Epithelial Cells Few /LPF Urine Amorphous Sediment Present /HPF Urine Bacteria Few /HPF (0-FEW) Urine Granular Casts Occ /HPF Urine Mucus Slight /LPF POC Urine HCG, Qualitative hcg negative (Negative) EKG EKG [] Radiology/Procedures Radiology/Procedures PROCEDURE: CT ABDOMEN PELVIS WO CONTRAST Examination: CT of the abdomen and pelvis without contrast HISTORY: History of right flank pain radiating to the right lower quadrant COMPARISON: 10/27/2016 TECHNIQUE: Axial CT images of the abdomen and pelvis were performed without contrast. Coronal and sagittal reformats were performed Exposure: One or more of the following individualized dose reduction techniques were utilized for this examination: 1. Automated exposure control 2. Adjustment of the mA and/or kV according to patient size 3. Use of iterative reconstruction technique. Findings: The visualized bibasilar lungs grossly appears unremarkable. No evidence of free air identified in the abdomen. The evaluation of the solid organs is limited due to lack of IV contrast. The evaluation of the bowel is limited due to lack of oral contrast. The visualized noncontrasted liver, spleen, adrenals grossly appears unremarkable. Cholecystectomy clips identified. The visualized pancreas grossly appears unremarkable. The stomach is mildly distended. The small bowel is nondilated Prior changes of appendectomy. Feces and gas noted in the colon. Urinary bladder is mildly distended. Faint fat stranding identified superior to the urinary bladder. Small amount of free fluid identified in the pelvis. No evidence of intrarenal collecting system calculi or hydronephrosis. The caliber of the aorta grossly appears unremarkable. No evidence of any bony destructive lesion. Mild degenerative changes lumbar spine. IMPRESSION: 1. Faint fat stranding identified just superior to the urinary bladder. Correlate for cystitis otherwise no acute intra-abdominal findings. 2. No evidence of intrarenal collecting system calculi or hydronephrosis. 3. Prior changes of cholecystectomy, appendectomy. 4. Small amount of free fluid identified in the pelvis, nonspecific. Electronically signed by: Omkar Diallo MD (01/25/2017 5:36 PM) DICTATED AND SIGNED BY: OMKAR DIALLO MD DATE: 01/25/17 1731[] Course & Med Decision Making Course & Med Decision Making Pertinent Labs and Imaging studies reviewed. (See chart for details) The patient presents with lower back pain. Symptoms suggestive of kidney stone but no blood in urine, no evidence of pyelonephritis. Discussed results with patient. She has ongoing pain & would like reassurance or answers with further workup. We decided to proceed with CT to evaluate for possible stone even though she had previous history of abdominal CT. We did discuss risks vs. benefits of additional radiation exposure. CT showed no evidence of stone, possible cystitis. With her reported urinary symptoms, will give cipro for UTI ; clinically I do not suspect pyelonephritis based on exam, lack of fever, normal WBC. Will also encourage ibuprofen & give prescriptions for norco & flexeril as likely some musculoskeletal component as well. Recommend rest & PO hydration, follow up with PCP in 2-3 days if not improving. Return for high fever, severe pain, uncontrolled vomiting, any otherwise worsening condition. Discharged home in stable condition. [] Dragon Disclaimer Dragon Disclaimer This chart was dictated in whole or in part using Voice Recognition software in a busy, high-work load, and often noisy Emergency Department environment. It may contain unintended and wholly unrecognized errors or omissions. Departure Departure: Impression: Primary Impression: Back pain Additional Impression: Cystitis Disposition: HOME, SELF-CARE Condition: STABLE Referrals: MARISOL JONES MD (PCP) Patient Instructions: Back Pain, Adult, [id number], Interstitial Cystitis Additional Instructions: You were seen in the emergency department today for back pain. Tests did not show an obvious definite cause of symptoms. CT scan was suggestive of cystitis. Take prescribed antibiotics. Also take ibuprofen every 8 hours for pain, [place] for severe pain, Flexeril for muscle spasm. Follow-up with primary care physician if not improving in 2-3 days. Return to the emergency department for high fever, severe abdominal pain or flank pain, uncontrolled vomiting, numbness or weakness in arms or legs, loss of control of bowels or bladder, any otherwise worsening condition. Scripts Cyclobenzaprine Hcl (CYCLOBENZAPRINE HCL) 5 Mg Tablet 1 TAB PO TID, #10 TAB Prov: JACOB CRISOSTOMO MD 01/25/17 Hydrocodone Bit/Acetaminophen (NORCO 5-325 TABLET) 1 Each Tablet 1-2 TAB PO Q4-6HRS Y for SEVERE PAIN, #10 TAB Prov: JACOB CRISOSTOMO MD 01/25/17 Ciprofloxacin Hcl (CIPRO) 250 Mg Tablet 1 TAB PO BID, #6 TAB Prov: JACOB CRISOSTOMO MD 01/25/17 Problem Qualifiers JACOB CRISOSTOMO MD Jan 25, 2017 16:30
--- NOTE | 2017-01-25 17:40 | RAD ---
Examination: CT of the abdomen and pelvis without contrast HISTORY: History of right flank pain radiating to the right lower quadrant COMPARISON: 10/27/2016 TECHNIQUE: Axial CT images of the abdomen and pelvis were performed without contrast. Coronal and sagittal reformats were performed Exposure: One or more of the following individualized dose reduction techniques were utilized for this examination: 1. Automated exposure control 2. Adjustment of the mA and/or kV according to patient size 3. Use of iterative reconstruction technique. Findings: The visualized bibasilar lungs grossly appears unremarkable. No evidence of free air identified in the abdomen. The evaluation of the solid organs is limited due to lack of IV contrast. The evaluation of the bowel is limited due to lack of oral contrast. The visualized noncontrasted liver, spleen, adrenals grossly appears unremarkable. Cholecystectomy clips identified. The visualized pancreas grossly appears unremarkable. The stomach is mildly distended. The small bowel is nondilated Prior changes of appendectomy. Feces and gas noted in the colon. Urinary bladder is mildly distended. Faint fat stranding identified superior to the urinary bladder. Small amount of free fluid identified in the pelvis. No evidence of intrarenal collecting system calculi or hydronephrosis. The caliber of the aorta grossly appears unremarkable. No evidence of any bony destructive lesion. Mild degenerative changes lumbar spine. IMPRESSION: 1. Faint fat stranding identified just superior to the urinary bladder. Correlate for cystitis otherwise no acute intra-abdominal findings. 2. No evidence of intrarenal collecting system calculi or hydronephrosis. 3. Prior changes of cholecystectomy, appendectomy. 4. Small amount of free fluid identified in the pelvis, nonspecific. Electronically signed by: Omkar Diallo MD (01/25/2017 5:36 PM)
[2017-01-25] MEDS ORDERED: CYCL5TAB PO (18:17)
[2017-01-25] MEDS ORDERED: HYDR-971 PO (18:17)
[2017-01-25] MEDS ORDERED: CIPROFLOXACIN HCL 500 MG TABLET ONE (18:17)
[2017-01-25] MEDS ORDERED: CIPR250T30 PO (18:17)
[2017-01-25] MEDS ORDERED: CIPROFLOXACIN HCL 500 MG TABLET PO ONE (18:30)
[2017-01-25 18:49] VITALS: BP 135/92
== END 2017-01-25 18:52 | disposition home or self-care (01) ==
LOC: ER 14:15
DX: N30.90 Cystitis, unspecified without hematuria (principal); E78.00 Pure hypercholesterolemia, unspecified; I10 Essential (primary) hypertension; F31.9 Bipolar disorder, unspecified; Z88.6 Allergy status to analgesic agent; Z88.7 Allergy status to serum and vaccine; Z88.8 Allergy status to other drugs, medicaments and biological substances
CPT/HCPCS: 36415; 74176; 80048; 81001; 81025; 85027; 96361; 96374; 96375; 96376; 99285; J1885; J2405; J3010; J7030

== ENCOUNTER 2017-02-19 13:38 | Emergency (ER) | payer OTHER ==
[~2017-02-19 13:38] MED LIST changes: +CIPR250T30 PO; +CYCL5TAB PO; +HYDR-971 PO
[2017-02-19 13:45] VITALS: BP 155/101
[2017-02-19] MEDS ORDERED: HYDR-971 PO (14:13)
[2017-02-19] MEDS ORDERED: NABU500T PO (14:13)
--- NOTE | 2017-02-19 14:13 | PHYS DOC ---
Past History Past Medical History: Bipolar, High Cholesterol, Hypertension, Other Past Surgical History: Appendectomy, Cholecystectomy, , Other Alcohol Use: None Drug Use: None Adult General Chief Complaint Chief Complaint: right knee pain HPI HPI Patient is a 46-year-old female who presents with the complaint of swelling and pain of her right knee. She has "severe osteoarthritis "of both knees. She has seen Dr. Drake, orthopedics. She had an MRI in September. Both of her knees have been hurting a lot more over the past 2 weeks. 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 She also went to the fair last night. Today, her right knee is swollen, she believes her whole right leg seems to be swollen. She can't straighten her right knee elevated pain and swelling. She's never had it swell up like this before. She denies any specific injury. She has taken ibuprofen off and on but not on any kind of a regular basis. She denies fever or chills. She does have an appointment with a specialist for a second opinion coming up this Tuesday. Review of Systems Review of Systems Constitutional: Denies fever or chills [] Musculoskeletal: As in history of present illness Integument: Denies rash or skin lesions [] Neurologic: Denies headache, focal weakness or sensory changes [] Allergies Allergies Allergies Coded Allergies Type Severity Reaction Last Updated Verified acetaminophen Allergy Intermediate Hives 09/07/16 Yes propoxyphene Allergy Intermediate Hives 09/07/16 Yes tetanus and diphtheria toxoids Allergy Intermediate [facility] 09/07/16 Yes Physical Exam Physical Exam Constitutional: Well developed, well nourished, no acute distress, non-toxic appearance. Afebrile. HENT: Normocephalic, atraumatic, bilateral external ears normal, nose normal. [] Eyes: conjunctiva normal, no discharge. [] Neck: Normal range of motion, no stridor. [] Skin: Warm, dry, no erythema, no rash. [] Extremities: Right leg: There is a small joint effusion of the knee and a mild amount of swelling around the right knee and a mild amount of nonspecific swelling of the lower leg. Calf is nontender and soft. No skin color changes of the knee or leg. No warmth of the knee. The patient is able to actively extend her knee but not to full 180 due to pain and swelling. The patient is able to actively flex her knee slightly limited by pain. Left knee and leg are unremarkable without swelling, joint effusion, or skin color changes. Neurologic: Alert and oriented X 3, normal motor function, normal sensory function, no focal deficits noted. [] EKG EKG [] Radiology/Procedures Radiology/Procedures [] Course & Med Decision Making Course & Med Decision Making Pertinent Labs and Imaging studies reviewed. (See chart for details) 46-year-old female who already has a diagnosis of "severe osteoarthritis" and does have a specialist and also an appointment coming up this week with a knee specialist for second opinions/possible specific treatment for her knee pain. She presents with the concern of significantly worsening pain with some swelling. The patient had an MRI in September of this year and she has not had a recent acute injury. I don't believe there is any evidence of septic joint. I discussed with the patient why conservative treatment at this time is when I have to offer her. We discussed rest, ice, NSAIDs, elevate. She understands and agrees with that plan. See instructions for plan. [] Dragon Disclaimer Dragon Disclaimer This chart was dictated in whole or in part using Voice Recognition software in a busy, high-work load, and often noisy Emergency Department environment. It may contain unintended and wholly unrecognized errors or omissions. Departure Departure: Impression: Primary Impression: Right knee pain Additional Impressions: Effusion, right knee Degenerative joint disease of knee, right Disposition: HOME, SELF-CARE Condition: STABLE Referrals: MARISOL JONES MD (PCP) Additional Instructions: Relafen 500 mg one now, one at bedtime, then every 12 hours for NSAID. Do not take additional ibuprofen with this. Keep it elevated, ice as much as possible, stay off of it and baby it, for the next couple of days. Hydrocodone as prescribed for more severe pain, it is an opiate, not while driving, it will be sedating and constipating. You may combine this with Relafen. Follow-up with specialist as you have planned. Scripts Hydrocodone Bit/Acetaminophen (NORCO 5-325 TABLET) 1 Each Tablet 1-2 TAB PO Q4-6HRS for knee pain, #20 TAB Prov: CARMELA ALONZO MD 02/19/17 Nabumetone (NABUMETONE) 500 Mg Tablet 1 TAB PO BID for pain knee, #30 TAB 1 Refill Prov: CARMELA ALONZO MD 02/19/17 Problem Qualifiers CARMELA ALONZO MD Feb 19, 2017 14:13
== END 2017-02-19 14:19 | disposition home or self-care (01) ==
LOC: ER 13:38
DX: M17.11 Unilateral primary osteoarthritis, right knee (principal); M25.461 Effusion, right knee; E78.00 Pure hypercholesterolemia, unspecified; I10 Essential (primary) hypertension; Z88.6 Allergy status to analgesic agent; Z88.7 Allergy status to serum and vaccine; Z88.8 Allergy status to other drugs, medicaments and biological substances
CPT/HCPCS: 99283

== ENCOUNTER 2017-12-20 18:45 | Inpatient (IN) | payer OTHER ==
[~2017-12-20] VITALS: Ht 170.2 cm; Wt 115.2 kg
[~2017-12-20 18:45] MED LIST changes: +NABU500T PO
[2017-12-20] MEDS ORDERED: IV NORMAL SALINE 1,000ML 1,000 ML IV ONE (19:45)
[2017-12-20] MEDS ORDERED: diphenhydrAMINE 50 MG/ML VIAL IM ONE (20:00)
[2017-12-20] MEDS ORDERED: PROCHLORPERAZINE 10 MG/2 ML VIAL. IV ONE (20:00)
--- NOTE | 2017-12-20 20:18 | RAD ---
CT HEAD AND MAXILLOFACIAL WO dated 12/20/2017 7:49 PM Indication: New-onset [id number] New onset severe frontotemporal LOEPS, left arm numbness. Comparison: No comparison is available. Technique: Contiguous axial imaging the head was performed from skull base to vertex. In addition, axial imaging the maxillofacial bones obtained with thin cut coronal and sagittal reconstruction. One or more of the following individualized dose reduction techniques were utilized for this examination: 1. Automated exposure control 2. Adjustment of the mA and/or kV according to patient size 3. Use of iterative reconstruction technique Findings: Ventricles and sulci are mildly prominent for age. No midline shift or mass effect. Brain parenchyma is of normal attenuation. No hemorrhage or extra-axial collection. Posterior fossa and brainstem unremarkable. No apparent calvarial abnormality. Images of the maxillofacial bones show no evidence of displaced fracture. Paranasal sinuses are clear. No significant mucosal thickening or air-fluid levels. The ostiomeatal units and infundibula are patent. No bony destructive process or periostitis. Mastoid air cells and middle ears are clear. Nasal septum is midline. No significant soft tissue abnormality. Mild spondylotic changes of the cervical spine. IMPRESSION: 1. No evidence of acute intracranial hemorrhage or mass. 2. Paranasal sinuses are clear. Electronically signed by: Sylvester Will MD (12/20/2017 8:15 PM) [facility]
[2017-12-20] MEDS ORDERED: MORPHINE SULFATE 4 MG/ML DISP.SYRIN. IV ONE (20:45)
[2017-12-20 20:55] LABS: CALCIUM 8.8 mg/dL (8.5-10.1); GFR 59.7
[2017-12-20] MEDS ORDERED: KETOROLAC 30 MG/ML VIAL. IV ONE (21:00)
[2017-12-20] MEDS ORDERED: ASPIRIN 81 MG TAB.CHEW PO ONE (21:30)
[2017-12-20] MEDS ORDERED: NITROGLYCERIN SUBLINGUAL 0.4 MG BOTTLE OF 25. SL ONE ×2 (21:30→22:15)
--- NOTE | 2017-12-20 21:52 | EKG ---
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
--- NOTE | 2017-12-20 21:53 | EKG ---
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
[2017-12-20] MEDS ORDERED: NITROGLYCERIN SUBLINGUAL 0.4 MG BOTTLE OF 25. SL PRN (22:30)
[2017-12-20] MEDS ORDERED: MORPHINE SULFATE 4 MG/ML DISP.SYRIN. IV PRN (22:30)
[2017-12-20 22:38] LABS: BASO % 1 % (0-3); EOS # 0.1 x10^3/uL (0.0-0.7); EOS % 1 % (0-3); HEMATOCRIT 42.8 % (36.0-47.0); HEMOGLOBIN 14.4 g/dL (12.0-15.5); LYMPH # 1.3 x10^3/uL (1.0-4.8); LYMPH % 19 % (24-48); MEAN CORPUSCULAR HEMOGLOBIN 31 pg (25-35); MEAN CORPUSCULAR HGB CONC 34 g/dL (31-37); MEAN CORPUSCULAR VOLUME 92 fL (79-100); MONO # 0.5 x10^3/uL (0.0-1.1); MONO % 7 % (0-9); NEUT % 72 % (31-73); PLATELET COUNT 255 x10^3/uL (140-400); RED BLOOD COUNT 4.63 x10^6/uL (3.50-5.40); RED CELL DISTRIBUTION WIDTH 13.7 % (11.5-14.5); WHITE BLOOD COUNT 6.9 x10^3/uL (4.0-11.0)
--- NOTE | 2017-12-20 23:32 | RAD ---
PORTABLE CHEST 1V dated 12/20/2017 10:47 PM. Comparison: None. Clinical Indication: [id number] Chest pain. Findings: Single upright portable exam performed. Heart and mediastinal contours are within normal limits. Lungs are clear without focal consolidation. Vascular interstitium within normal limits. No pleural effusion or pneumothorax. Impression: Negative portable chest. Electronically signed by: Sylvester Will MD (12/20/2017 11:29 PM) [facility]
[2017-12-20 23:48] VITALS: BP 112/80
--- NOTE | 2017-12-21 00:15 | ED.ADGEN ---
Past History Past Medical History: Bipolar, High Cholesterol, Hypertension, Migraines, Other Past Surgical History: Appendectomy, Cholecystectomy, Alcohol Use: None Drug Use: None Adult General HPI HPI Patient is a 47 year old female who presents with headache and migraine. The patient does have a prior history of migraines which had been described in the past to be complex. This is because she had some focal neurologic deficits accompanying the headaches. She had previously been evaluated at [facility] as a stroke alert. Her workup for stroke however was negative. Today, she comes to the ER complaining of a headache. The headache is of similar quality to her normal migraines although more severe in intensity. She has been having pain over the last week or more. Symptoms became more severe in the last 48 hours. She does have some numbness and continuing sensation down the left arm as well. She has not had a fever or chills. No nausea or vomiting. No rash or neck stiffness. Headache is worse than her normal headaches but did not begin suddenly. The patient also complains of some intermittent sternal chest pain that has been stuttering over the last 10-14 days. The pain is not exertional. It is described to be dull and sometimes does radiate. She does also have a prior history of extensive workup for chest pain. She states she never was diagnosed with coronary artery disease but did undergo cardiac catheterization for evaluation of her pain as no acute cause had been found. Currently, her headache is her primary complaint but she does also complain of mild dull chest pain in the ER. She does not have dyspnea or palpitations. Review of Systems Review of Systems Constitutional: Denies fever or chills Eyes: Denies change in visual acuity HENT: Denies nasal congestion or sore throat Respiratory: Denies cough or shortness of breath Cardiovascular: No additional information not addressed in HPI GI: Denies abdominal pain, nausea : Denies dysuria or hematuria Musculoskeletal: Denies back pain or joint pain Integument: Denies rash or skin lesions Neurologic: In history of present illness as documented in history of present illness Endocrine: Denies polyuria or polydipsia All other systems were reviewed and found to be within normal limits, except as documented in this note. Current Medications Current Medications Current Medications Medications (Trade) Dose Ordered Sig/Shakira Start Time Stop Time Status Last Admin Dose Admin Aspirin (Children'S Aspirin) 324 mg 1X ONCE 5/29/18 21:30 12/20/17 21:31 DC 12/20/17 21:30 324 MG Diphenhydramine HCl (Benadryl) 25 mg 1X ONCE 12/20/17 20:00 12/20/17 20:01 DC 12/20/17 20:06 25 MG Ketorolac Tromethamine (Toradol) 30 mg 1X ONCE 12/20/17 21:00 12/20/17 21:01 DC 12/20/17 21:18 30 MG Morphine Sulfate (Morphine 4mg Syringe) 4 mg PRN Q2HR PRN 12/20/17 22:30 12/21/17 22:29 Nitroglycerin (Nitrostat) 0.4 mg PRN Q5MIN PRN 12/20/17 22:30 12/21/17 22:29 Prochlorperazine Edisylate (Compazine) 10 mg 1X ONCE 12/20/17 20:00 12/20/17 20:01 DC 12/20/17 20:06 10 MG Sodium Chloride 1,000 ml @ 1,000 mls/hr 1X ONCE 12/20/17 19:45 12/20/17 20:44 DC 12/20/17 20:05 1,000 MLS/HR Allergies Allergies Allergies Coded Allergies Type Severity Reaction Last Updated Verified propoxyphene Allergy Intermediate Hives 09/07/16 Yes tetanus and diphtheria toxoids Allergy Intermediate Hives 09/07/16 Yes Physical Exam Physical Exam Constitutional: Well developed, well nourished, no acute distress, non-toxic appearance. HENT: Normocephalic, atraumatic, bilateral external ears normal, oropharynx moist Eyes: EOMI Neck: Normal range of motion Cardiovascular:Heart rate regular rhythm, no murmur Lungs & Thorax: Bilateral breath sounds clear to auscultation Abdomen: Bowel sounds normal, soft, no tenderness Skin: Warm, dry, no erythema, no rash Extremities: No edema Neurologic: Alert and oriented X 3, normal motor function, cranial nerves II through XII are intact bilaterally, 5 over 5 motor strength, normal gait, Psychologic: Affect normal Current Patient Data Vital Signs Vital Signs Date Time Temp Pulse Resp B/P (MAP) Pulse Ox O2 Delivery O2 Flow Rate FiO2 12/20/17 21:56 80 118/77 12/20/17 18:45 99.0 20 100 Room Air Lab Results Laboratory Tests Test 12/20/17 19:20 12/20/17 22:26 White Blood Count 6.9 x10^3/uL (4.0-11.0) Red Blood Count 4.63 x10^6/uL (3.50-5.40) Hemoglobin 14.4 g/dL (12.0-15.5) Hematocrit 42.8 % (36.0-47.0) Mean Corpuscular Volume 92 fL (79-100) Mean Corpuscular Hemoglobin 31 pg (25-35) Mean Corpuscular Hemoglobin Concent 34 g/dL (31-37) Red Cell Distribution Width 13.7 % (11.5-14.5) Platelet Count 255 x10^3/uL (140-400) Neutrophils (%) (Auto) 72 % (31-73) Lymphocytes (%) (Auto) 19 % (24-48) L Monocytes (%) (Auto) 7 % (0-9) Eosinophils (%) (Auto) 1 % (0-3) Basophils (%) (Auto) 1 % (0-3) Neutrophils # (Auto) 5.0 x10^3uL (1.8-7.7) Lymphocytes # (Auto) 1.3 x10^3/uL (1.0-4.8) Monocytes # (Auto) 0.5 x10^3/uL (0.0-1.1) Eosinophils # (Auto) 0.1 x10^3/uL (0.0-0.7) Basophils # (Auto) 0.0 x10^3/uL (0.0-0.2) D-Dimer (Susan) 0.28 mg/L (0.00-0.50) Sodium Level 139 mmol/L (136-145) Potassium Level 4.0 mmol/L (3.5-5.1) Chloride Level 104 mmol/L (98-107) Carbon Dioxide Level 25 mmol/L (21-32) Anion Gap 10 (6-14) Blood Urea Nitrogen 14 mg/dL (7-20) Creatinine 1.0 mg/dL (0.6-1.0) Estimated GFR (Cockcroft-Gault) 59.7 Glucose Level 103 mg/dL (70-99) H Calcium Level 8.8 mg/dL (8.5-10.1) Troponin I Quantitative < 0.017 ng/mL (0-0.055) < 0.017 ng/mL (0-0.055) EKG EKG Normal sinus rhythm. No ST depression or elevation to suggest acute ischemia. Radiology/Procedures Radiology/Procedures CT of the head did not reveal acute findings. Chest x-ray also does not reveal acute pneumothoraces or consolidations. Course & Med Decision Making Course & Med Decision Making Pertinent Labs and Imaging studies reviewed. (See chart for details) Patient was seen and evaluated in the emergency department. There was some concern that her headache symptoms were more severe compared to baseline. CT scan of the head was completed and normal. Her neurologic exam was nonfocal. She was given Toradol, Compazine, and Benadryl. These medications did relieve her headache symptoms. She was also given a dose of morphine. Regarding her chest pain, she had an episode in the emergency department when her pain worsened. A repeat EKG was done and there were no acute changes seen. Her troponin was not elevated. D-dimer was also not elevated. Her chest x-ray did not reveal an acute etiology for her pain symptoms. Given her prior history of chest pain and cardiac catheterization which was many years earlier, I feel it appropriate that the patient be admitted and receive cardiology consult. Orders are placed for admission after I spoke to Dr. Gayle. Orders are also placed for the cardiology consult. We will trend her troponins over the next 24 hours and repeat EKGs. Final Impression Final Impression [] Dragon Disclaimer Dragon Disclaimer This electronic medical record was generated, in whole or in part, using a voice recognition dictation system. POLA BREEN DO December 21, 2017 00:15
[2017-12-21] MEDS ORDERED: NORT50CA PO (00:44)
[2017-12-21] MEDS ORDERED: ARIP10TA9 PO (00:44)
[2017-12-21] MEDS ORDERED: CLON0.5T3 PO (00:45)
[2017-12-21] MEDS ORDERED: LAMO100T PO (00:45)
[2017-12-21] MEDS ORDERED: VERA120C4 PO (00:45)
[2017-12-21 05:26] VITALS: BP 101/65
[2017-12-21] MEDS ORDERED: clonazePAM 0.5 MG TABLET PO PRN (06:15)
--- NOTE | 2017-12-21 06:19 | EKG ---
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
[2017-12-21 06:32] LABS: CALCIUM 8.6 mg/dL (8.5-10.1); CREATININE 0.8 mg/dL (0.6-1.0); GFR 77.2; POTASSIUM 3.9 mmol/L (3.5-5.1)
[2017-12-21 06:44] LABS: BASO % 0 % (0-3); EOS # 0.1 x10^3/uL (0.0-0.7); EOS % 1 % (0-3); HEMATOCRIT 41.2 % (36.0-47.0); HEMOGLOBIN 13.9 g/dL (12.0-15.5); LYMPH # 2.3 x10^3/uL (1.0-4.8); LYMPH % 31 % (24-48); MEAN CORPUSCULAR HEMOGLOBIN 31 pg (25-35); MEAN CORPUSCULAR HGB CONC 34 g/dL (31-37); MEAN CORPUSCULAR VOLUME 93 fL (79-100); MONO # 0.5 x10^3/uL (0.0-1.1); MONO % 7 % (0-9); NEUT # 4.4 x10^3uL (1.8-7.7); NEUT % 60 % (31-73); PLATELET COUNT 240 x10^3/uL (140-400); RED BLOOD COUNT 4.46 x10^6/uL (3.50-5.40); RED CELL DISTRIBUTION WIDTH 13.5 % (11.5-14.5); WHITE BLOOD COUNT 7.2 x10^3/uL (4.0-11.0)
[2017-12-21] MEDS ORDERED: clonazePAM 0.5 MG TABLET PO SCH (09:00)
[2017-12-21] MEDS ORDERED: TOPIRAMATE 25 MG TABLET. PO SCH (09:00)
[2017-12-21] MEDS ORDERED: METOPROLOL SUCC 24HR ER 50 MG TAB.ER.24H. PO SCH (09:00)
[2017-12-21] MEDS ORDERED: DULoxetine HCL 60 MG CAPSULE.DR PO SCH (09:00)
--- NOTE | 2017-12-21 10:20 | PDOC2 ---
SARINAKATHIE Herbert TRANSITION COACH 12/21/17 1020: CONSULT Date of Admission DATE: 12/21/17 TIME: 10:08 Reason for Consult: chest pain Problem List Problems Medical Problems: (1) Other chest pain Status: Acute History of Present Illness Patient is a 47 year old female with history of hypertension, hyperlipidemia and migraines who presents with complaints of headache. She was driving to work and noted some tingling in her left arm so became worried so presented for evaluation. She reports that on the way to ED she noted some chest pressure as well. She denies dyspnea, palpitations or lightheadedness. She reports the chest pressure has been intermittent over the last couple weeks. She is unsure of any precipitating activities. She additionally reports episodes of significant diaphoresis intermittently while working. She has history of prior cardiac cath about 9 years ago which she report revealed mild coronary disease. She reports that her blood pressure has been uncontrolled in the last few days despite taking her blood pressure medications and complains of swelling in her hands and feet/ankles. Cardiovascular: CAD, HTN, hyperipidemia, Other (raynauds disease) Pulmonary: Other (DAVIE) CENTRAL NERVOUS SYSTEM: Migraine Psych: Anxiety, Bipolar Musculoskeletal: Osteoarthritis, Other (DJD bilateral knees ) Past Surgical History: Appendectomy, Cholecystectomy, Other (endometrial ablation, bladder sling) Family History Premature coronary artery disease - mother with NM in her 50s, small vessel disease, Father with NM and 5 stents in his early 60s. Social History non smoker, no significant ETOH, no illicit drugs Current Medications Current Medications Diphenhydramine HCl (Benadryl) 25 mg 1X ONCE IM Last administered on at 20:06; Start 12/20/17 at 20:00; Stop 12/20/17 at 20:01; Status DC Prochlorperazine Edisylate (Compazine) 10 mg 1X ONCE IV Last administered on at 20:06; Start 12/20/17 at 20:00; Stop 12/20/17 at 20:01; Status DC Sodium Chloride 1,000 ml @ 1,000 mls/hr 1X ONCE IV Last administered on at 20:05; Start 12/20/17 at 19:45; Stop 12/20/17 at 20:44; Status DC Morphine Sulfate (Morphine 4mg Syringe) 6 mg 1X ONCE IV Last administered on at 20:45; Start 12/20/17 at 20:45; Stop 12/20/17 at 20:46; Status DC Ketorolac Tromethamine (Toradol) 30 mg 1X ONCE IV Last administered on at 21:18; Start 12/20/17 at 21:00; Stop 12/20/17 at 21:01; Status DC Aspirin (Children'S Aspirin) 324 mg 1X ONCE PO Last administered on 12/20/17at 21:30; Start 12/20/17 at 21:30; Stop 12/20/17 at 21:31; Status DC Nitroglycerin (Nitrostat) 0.4 mg 1X ONCE SL Last administered on 12/20/17at 21: 31; Start 12/20/17 at 21:30; Stop 12/20/17 at 21:31; Status DC Nitroglycerin (Nitrostat) 0.4 mg 1X ONCE SL Last administered on 12/20/17at 21: 56; Start 12/20/17 at 22:15; Stop 12/20/17 at 22:16; Status DC Morphine Sulfate (Morphine 4mg Syringe) 4 mg PRN Q2HR PRN IV PAIN; Start at 22:30; Stop 12/21/17 at 22:29 Nitroglycerin (Nitrostat) 0.4 mg PRN Q5MIN PRN SL CHEST PAIN; Start 12/20/17 at 22:30; Stop 12/21/17 at 22:29 Clonazepam (KlonoPIN) 0.5 mg PRN DAILY PRN PO ANXIETY; Start 12/21/17 at 06:15 Clonazepam (KlonoPIN) 0.5 mg BID PO Last administered on 12/21/17at 09:35; Start 12/21/17 at 09:00 Aripiprazole (Abilify) 10 mg QHS PO ; Start 12/21/17 at 21:00 Duloxetine HCl (Cymbalta) 60 mg BID PO Last administered on 12/21/17at 09:35; Start 12/21/17 at 09:00 Lamotrigine (LaMICtal) 100 mg QHS PO ; Start 12/21/17 at 21:00 Metoprolol Succinate (Toprol Xl) 100 mg DAILY PO ; Start 12/21/17 at 09:00 Nortriptyline HCl (Pamelor) 100 mg QHS PO ; Start 12/21/17 at 21:00 Topiramate (Topamax) 50 mg BID PO Last administered on 12/21/17at 09:35; Start 12/21/17 at 09:00 Verapamil HCl (Calan Sr) 120 mg QHS PO ; Start 12/21/17 at 21:00 Active Scripts Active Reported Clonazepam 0.5 Mg Tablet 0.5 Mg PO PRN DAILY PRN Lamotrigine 100 Mg Tablet 100 Mg PO QHS Verapamil Sr (Verapamil HCl) 120 Mg Cap24h.pel 120 Mg PO QHS Abilify (Aripiprazole) 10 Mg Tablet 10 Mg PO QHS Nortriptyline Hcl 50 Mg Capsule 100 Mg PO QHS Topamax (Topiramate) 50 Mg Tablet 50 Mg PO BID last dose this morning next dose tonight Toprol Xl (Metoprolol Succinate) 100 Mg Tab.er.24h 100 Mg PO DAILY last dose this morning next dose tomorrow Cymbalta (Duloxetine Hcl) 60 Mg Capsule.dr 60 Mg PO BID last dose this morning next dose tonight Klonopin (Clonazepam) 0.5 Mg Tablet 0.5 Mg PO BID last dose this morning next dose due tonight Allergies: Coded Allergies: propoxyphene (Verified Allergy, Intermediate, Hives, 09/07/16) tetanus and diphtheria toxoids (Verified Allergy, Intermediate, Hives, ) Review of System as per HPI or negative General: Alert, Oriented X3, Cooperative, No acute distress HEENT: Atraumatic, EOMI, Mucous membr. moist/pink Lungs: Clear to auscultation, Normal air movement Heart: Regular rate, Normal S1, Normal S2 Abdomen: Normal bowel sounds, Soft Extremities: No cyanosis, Normal pulses, Other (trace edema) Skin: No rashes, No breakdown Neuro: Normal speech, Strength at 5/5 X4 ext Psych/Mental Status: Mental status NL, Mood NL VITALS Vital Signs Date Time Temp Pulse Resp B/P (MAP) Pulse Ox O2 Delivery O2 Flow Rate FiO2 12/21/17 08:00 Room Air 12/21/17 05:26 97.9 66 18 101/65 (77) 98 Labs Laboratory Tests Test 12/20/17 19:20 12/20/17 22:26 12/21/17 05:48 White Blood Count 6.9 x10^3/uL (4.0-11.0) 7.2 x10^3/uL (4.0-11.0) Red Blood Count 4.63 x10^6/uL (3.50-5.40) 4.46 x10^6/uL (3.50-5.40) Hemoglobin 14.4 g/dL (12.0-15.5) 13.9 g/dL (12.0-15.5) Hematocrit 42.8 % (36.0-47.0) 41.2 % (36.0-47.0) Mean Corpuscular Volume 92 fL (79-100) 93 fL (79-100) Mean Corpuscular Hemoglobin 31 pg (25-35) 31 pg (25-35) Mean Corpuscular Hemoglobin Concent 34 g/dL (31-37) 34 g/dL (31-37) Red Cell Distribution Width 13.7 % (11.5-14.5) 13.5 % (11.5-14.5) Platelet Count 255 x10^3/uL (140-400) 240 x10^3/uL (140-400) Neutrophils (%) (Auto) 72 % (31-73) 60 % (31-73) Lymphocytes (%) (Auto) 19 % (24-48) 31 % (24-48) Monocytes (%) (Auto) 7 % (0-9) 7 % (0-9) Eosinophils (%) (Auto) 1 % (0-3) 1 % (0-3) Basophils (%) (Auto) 1 % (0-3) 0 % (0-3) Neutrophils # (Auto) 5.0 x10^3uL (1.8-7.7) 4.4 x10^3uL (1.8-7.7) Lymphocytes # (Auto) 1.3 x10^3/uL (1.0-4.8) 2.3 x10^3/uL (1.0-4.8) Monocytes # (Auto) 0.5 x10^3/uL (0.0-1.1) 0.5 x10^3/uL (0.0-1.1) Eosinophils # (Auto) 0.1 x10^3/uL (0.0-0.7) 0.1 x10^3/uL (0.0-0.7) Basophils # (Auto) 0.0 x10^3/uL (0.0-0.2) 0.0 x10^3/uL (0.0-0.2) D-Dimer (Susan) 0.28 mg/L (0.00-0.50) Sodium Level 139 mmol/L (136-145) 140 mmol/L (136-145) Potassium Level 4.0 mmol/L (3.5-5.1) 3.9 mmol/L (3.5-5.1) Chloride Level 104 mmol/L (98-107) 106 mmol/L (98-107) Carbon Dioxide Level 25 mmol/L (21-32) 27 mmol/L (21-32) Anion Gap 10 (6-14) 7 (6-14) Blood Urea Nitrogen 14 mg/dL (7-20) 14 mg/dL (7-20) Creatinine 1.0 mg/dL (0.6-1.0) 0.8 mg/dL (0.6-1.0) Estimated GFR (Cockcroft-Gault) 59.7 77.2 Glucose Level 103 mg/dL (70-99) 74 mg/dL (70-99) Calcium Level 8.8 mg/dL (8.5-10.1) 8.6 mg/dL (8.5-10.1) Troponin I Quantitative < 0.017 ng/mL (0-0.055) < 0.017 ng/mL (0-0.055) < 0.017 ng/mL (0-0.055) Images EKG - sinus rhythm without acute ischemic changes Assessment/Plan 1. Chest pain - NM ruled out. Suggest echo for LV function and MPI. Can stress this am and rest tomorrow if abnormal. Continue secondary prevention with beta samaria, check lipids and statin as indicated as well as weight mgmt. 2. hypertension - continue medical mgmt. Echo to eval effect of HTN. weight reduction and mgmt of DAVIE encouraged. 3. HLD - check lipids and resume statin if indicated. 4. Migranes - Consider tension type and cervical radiculopathy as underlying cause. ? OP MRI. 5. Anxiety/Bipolar disorder - per PCP HERNAN BENDER MD 12/22/17 0732: CONSULT Assessment/Plan Late entry for 12/21/2017 Pt. seen and examined. 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 47 y.o woman with atypical chest pain, strong family history She has significant untreated DAVIE with migraines as well. BP is suboptimally controlled. Discussed with her about normal MPI and echo. Encouraged weight loss and DAVIE treatment. Lisinopril 10mg to be started with f/u with PCP for titration. Supportive care. Prn cardiology f/u. KATHIE BRANCH TRANSITION COACH December 21, 2017 10:20 HERNAN BENDER MD December 22, 2017 07:32
[2017-12-21 11:00] VITALS: BP 167/104
[2017-12-21] MEDS ORDERED: REGADENOSON 0.4 MG/5 ML DISP.SYRIN. IV ONE (11:00)
[2017-12-21] MEDS ORDERED: ACETAMINOPHEN 325 MG TABLET PO PRN (12:30)
--- NOTE | 2017-12-21 14:09 | RAD ---
MR#: [id number] Date of Study: 12/21/2017 Ordering Physician: KATHIE BRANCH Referring Physician: ARNULFO RAMÍREZ Tech: OPAL Amador APPROVED REPORT Test Type: Pharmacological Stress Nurse/Tech: OPAL Amador Test Indications: Chest pain , HTN Cardiac History: Family History Medications: see EHR Medical History: see EHR Resting ECG: SR No acute changes note Resting Heart Rate: 69 bpm Resting Blood Pressure: 133/80mmHg Pretest Chest Pain: None Nurse/Tech Notes Consent: The procedure was explained to the patient in lay terms. Informed consent was witnessed. Jerod eout was entered into Celect. History and Stress Test performed by OPAL Amador Pharm. Details Pharmacologic stress testing was performed using 0.4mg per 5ml of regadenoson given intravenously ove r 7-10 seconds. POST EXERCISE Reason for Termination: Infusion complete Max HR: 93 bpm Max Blood Pressure: 132/75mmHg Blood Pressure response to exercise: Normal blood pressure response during stress. Chest Pain: No. ST Change: No. INTERPRETATION Stress EKG Conclusion: Baseline EKG showed sinus rhythm. No ischemic changes at peak stress. No arr hythmias. Imaging Protocol IMAGE PROTOCOL: Stress Tc-99m/rest Tc-99m 2 days Rest: Stress: Viability: Radiopharm.Tc99m Sestamibi [id number] Duration 12min. Img Date 12/21/2017 Inj-Img [id number]. Stress Admin Site: IV - Right AntecubitalAdministrator: OPAL Amador STRESS DATA End Diast. Vol.123.0mlAv. Heart Rate72.0bpm LVEDV index BSA2.0mlCardiac Output0.1L/min End Syst. Vol.31.0mlCO Index BSA6.6L/min LVESV index BSA0.0mlMyocardial Edbu210.0g Eject. Utpwornp24.0% Stress Rates Pk. Fill Rate2.95EDV/secLVtime Pk. Fill 118.61msec Pk. Empty Rate3.06ESV/secLVtime Pk. Dbuhs439.35msec 1/3 Pk. Fill2.01EDV/sec Stress Scores Regional WT0.00Summed WT2.00 Regional WM0.00Summed WM0.00 LV Perfusion Stress scintigraphic images did not show any significant perfusion defects. Wall Motion Normal left ventricle systolic function with ejection fraction calculated at 75%. LV Perf. Quant 17 Seg. SSS2.00 Stress Defect Extent (% LAD)1.30Rest Defect Extent (% LAD)Rev. Defect Extent (% LAD)0.00 Stress Defect Extent (% LCX) 0.00Rest Defect Extent (% LCX)Rev. Defect Extent (% LCX)0.00 Stress Defect Extent (% RCA)0.00Rest Defect Extent (% RCA)Rev. Defect Extent (% RCA)0.00 Stress Defect Extent (% NELLIE)2.00Rest Defect Extent (% NELLIE)Rev. Defect Extent (% NELLIE)0.00 Conclusion 1. Regadenoson cardioisotope stress test did not show any evidence of ischemia or infarct. 2. Normal left ventricular systolic function with ejection fraction calculated at 75%. 3. Low risk for cardiac events. Signed by : Onel Argueta, Electronically Approved : 12/21/2017 14:08:15
[2017-12-21 14:10] LABS: THYROID STIM HORMONE (TSH) 4.951 uIU/mL (0.358-3.740)
--- NOTE | 2017-12-21 14:57 | CARD ---
MR#: [id number] Date of Study: 12/21/2017 Ordering Physician: KATHIE BRANCH, Referring Physician: DA CASTRO Tech: JACLYN Lynn APPROVED REPORT EXAM: Two-dimensional and M-mode echocardiogram with Doppler and color Doppler. Other Information Quality : FairHR: 78bpm Technically limited study due to bad windows INDICATION Hypertension/HCVD Chest Pain RISK FACTORS Obesity 2D DIMENSIONS Left Atrium(2D)3.4 (1.6-4.0cm)IVSd1.4 (0.7-1.1cm) Aortic Root(2D)2.8 (2.0-3.7cm)LVDd4.4 (3.9-5.9cm) LVOT Diameter2.0 (1.8-2.4cm)PWd1.6 (0.7-1.1cm) LVDs2.9 (2.5-4.0cm)FS (%) 34.7 % SV57.0 mlLVEF(%)64.1 (>50%) Aortic Valve AoV Peak Shivam.130.2cm/sAoV VTI29.1cm AO Peak GR.6.8mmHgLVOT Peak Shivam.113.4cm/s LVOT VTI 23.60cmAO Mean GR.4mmHg MICHEL (VMAX)2.50mo6GWB (VTI)2.46cm2 Mitral Valve MV E Eniiqqym20.3cm/sMV DECEL SGME001lw MV A Mtnzzrlq494.7cm/sE/A Ratio0.9 Pulmonary Valve PV Peak Lodlwtkx458.9cm/sPV Peak Grad.6mmHg LEFT VENTRICLE The left ventricle is normal size. There is moderate concentric left ventricular hypertrophy. The lef t ventricular systolic function is normal. The ejection fraction is estimated at 60%. There is normal LV segmental wall motion. The left ventricular diastolic function and filling is normal for age. RIGHT VENTRICLE The right ventricle is normal size. There is normal right ventricular wall thickness. The right ventr icular systolic function is normal. ATRIA The left atrium size is normal. The right atrium size is normal. The interatrial septum is intact wit h no evidence for an atrial septal defect or patent foramen ovale as noted on 2-D or Doppler imaging. AORTIC VALVE The aortic valve is not well visualized. The aortic valve opens well. Doppler and Color Flow revealed no significant aortic regurgitation. There is no significant aortic valvular stenosis. There is no a ortic valvular vegetation. MITRAL VALVE The mitral valve is thickened but opens well. There is no evidence of mitral valve prolapse. There is no mitral valve stenosis. Doppler and Color-flow revealed trace mitral regurgitation. TRICUSPID VALVE The tricuspid valve is not well visualized. Doppler and Color Flow revealed no tricuspid valve regurg itation noted. There is no tricuspid valve stenosis. PULMONIC VALVE The pulmonic valve is not well visualized. Doppler and Color Flow revealed no pulmonic valvular regur gitation. There is no pulmonic valvular stenosis. GREAT VESSELS The aortic root is normal in size. The IVC is normal in size and collapses >50% with inspiration. PERICARDIAL EFFUSION There is no pleural effusion. There is no evidence of significant pericardial effusion. Critical Notification Critical Value: No <Conclusion> Technically difficult study. The left ventricular systolic function is normal. The ejection fraction is estimated at 60%. There is normal LV segmental wall motion. Trace mitral regurgitation. There is no evidence of significant pericardial effusion. Signed by : Onel Argueta, Electronically Approved : 12/21/2017 14:56:35
[2017-12-21 15:13] VITALS: BP 151/97
[2017-12-21] MEDS ORDERED: LISI10TA2 PO (17:34)
--- NOTE | 2017-12-21 18:08 | SSS ---
ADMIT DATE: 12/21/2017 HISTORY OF PRESENT ILLNESS: This is a 47-year-old with a history of hypertension, hyperlipidemia and migraine headache, who presented to the Emergency Room with a complaint of headache. She was driving to work and noted some tingling in her arms. She became worried and presented for evaluation. She also reported that she has chest pressure as well, although she denied any dyspnea, palpitations or lightheadedness. The chest pressure has been intermittent over the last couple of weeks. She is unsure of any precipitating factor. She additionally reports an episode of significant diaphoresis. She had history of prior cardiac catheterization about 9 years ago, which revealed mild coronary disease. She also reports that her blood pressure has been uncontrolled in the last few days despite taking her blood pressure medication and complained of swelling in her hands, feet, ankles. She was basically evaluated in the Emergency Room and her first set of cardiac enzymes was less than 0.017 and was admitted and has 2 more sets of cardiac enzymes that were negative. She was evaluated by the Cardiology team and apparently has had an echocardiogram, which basically showed that her left ventricular systolic function is normal, her ejection fraction estimated 60%. There is normal left ventricular segmental wall motion, trace mitral regurgitation with no evidence of significant pericardial effusion. Her nuclear medicine scan showed that the cardiac isotope stress test did not show any evidence of ischemia or infarct, normal left ventricular systolic function, ejection fraction was calculated at 75%, low risk for cardiac event. She was treated with morphine for headache and a decision was made to discharge her home with the advice to continue on her BiPAP machine as she has severe obstructive sleep apnea. PAST MEDICAL HISTORY: Significant for coronary artery disease, hypertension, hyperlipidemia, obstructive sleep apnea, migraine headache, anxiety and bipolar disorder as well as generalized osteoarthritis. PAST SURGICAL HISTORY: Significant for appendectomy, cholecystectomy, endometrial ablation, and bladder sling. FAMILY HISTORY: Positive for premature coronary artery disease. Her mother had early myocardial infarction in her 50s and father has myocardial infarction and 5 stents in his early 60s. SOCIAL HISTORY: She is . She does not smoke, drink alcohol or use any recreational drugs. 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 REVIEW OF SYSTEMS: As per history of present illness. PHYSICAL EXAMINATION: GENERAL: On examining her, she looked well and was clearly in no apparent respiratory distress. No pallor, jaundice, cyanosis or thyromegaly. No jugular venous distension. No limb edema. VITAL SIGNS: Her heart rate was 82, blood pressure 151/97, temperature was 98.3, respiratory rate 20, and oxygen saturation was 95% on room air. HEAD, EYES, EARS, NOSE AND THROAT: Showed normocephalic, atraumatic. NECK: Supple. HEART: Showed normal first and second heart sounds. No gallop, rub or murmur. CHEST: Clear to auscultation. No crepitation or rhonchi. ABDOMEN: Distended, soft, nontender. NEUROLOGIC: She is awake, alert, responding appropriately. All cranial nerves are intact. EXTREMITIES: She moves extremities without difficulty. She ambulates without assistance or assistive devices. LABORATORY DATA: Showed that her white cell count was 6900, hemoglobin 14, hematocrit 42, MCV 92, and platelet count 255,000. She has 3 sets of cardiac enzymes, all of them showed troponin to be less than 0.017. Her fasting lipid profile showed her triglycerides to be 98, total cholesterol 223, LDL was 153, VLDL was 19, and HDL cholesterol was 51. The ratio was 4. Her TSH was 4.951. Her D-dimer was 0.28. IMAGING DATA: Her EKG showed that she was in sinus rhythm with no ST depression or elevation to suggest acute ischemia. CT scan of the head was basically unremarkable with no evidence of acute intracranial hemorrhage or mass. Paranasal sinuses are clear. Her chest x-ray also showed that the heart and mediastinal contours are within normal limits. Lungs are clear without focal consolidation, vascular interstitium within normal limits, no pleural effusion or pneumothorax. MEDICATIONS: The patient was discharged home to continue on the following medications: Aripiprazole for Abilify 10 mg at bedtime, clonazepam 0.5 mg twice a day, clonazepam 0.5 mg daily p.r.n. for anxiety, duloxetine for Cymbalta 60 mg twice a day, lamotrigine 100 mg at bedtime, metoprolol succinate 100 mg once a day, nortriptyline 100 mg at bedtime, Topamax 50 mg twice a day and verapamil 120 mg at bedtime. FINAL DISCHARGE DIAGNOSES: Chest pain, myocardial infarction ruled out, severe migraine headache, hypertension, hyperlipidemia, and obstructive sleep apnea. DA CASTRO MD DR: Arvind JOB#: [id number] / [id number]
[2017-12-21] MEDS ORDERED: lamoTRIgine 100 MG TABLET. PO SCH (21:00)
[2017-12-21] MEDS ORDERED: VERAPAMIL SR 120 MG TABLET.ER. PO SCH (21:00)
[2017-12-21] MEDS ORDERED: ARIPiprazole 10 MG TABLET PO SCH (21:00)
[2017-12-21] MEDS ORDERED: NORTRIPTYLINE 25 MG CAPSULE PO SCH (21:00)
[2017-12-22] MEDS ORDERED: LISINOPRIL 10 MG TABLET PO SCH (09:00)
== END 2017-12-21 17:56 | disposition home or self-care (01) | DRG 103 ==
LOC: ER 18:45 → 1 SOUTH 22:50
PROVIDERS: ADMIT Internal Medicine; ATTEND Internal Medicine
DX: G43.909 Migraine, unspecified, not intractable, without status migrainosus (principal); E78.00 Pure hypercholesterolemia, unspecified; E78.5 Hyperlipidemia, unspecified; R07.9 Chest pain, unspecified; I10 Essential (primary) hypertension; R61 Generalized hyperhidrosis; M79.89 Other specified soft tissue disorders; I25.10 Atherosclerotic heart disease of native coronary artery without angina pectoris; G47.33 Obstructive sleep apnea (adult) (pediatric); F41.9 Anxiety disorder, unspecified; I73.00 Raynaud's syndrome without gangrene; F31.9 Bipolar disorder, unspecified; M15.9 Polyosteoarthritis, unspecified; Z90.49 Acquired absence of other specified parts of digestive tract; Z82.49 Family history of ischemic heart disease and other diseases of the circulatory system; Z79.899 Other long term (current) drug therapy; Z88.7 Allergy status to serum and vaccine; Z88.8 Allergy status to other drugs, medicaments and biological substances
CPT/HCPCS: 36415; 70450; 70486; 71045; 78452; 80048; 80061; 84443; 84484; 85025; 85379; 93005; 93017; 93306; 96361; 96372; 96374; 96375; A9500; J0780; J1200; J1885; J2270; J2785; 99285-25; J7030

== ENCOUNTER → 2017-12-30 | Outpatient (CLI) | payer OTHER ==
[2017-12-21 15:13] VITALS: BP 151/97
[~2017-12-30] MED LIST changes: +ARIP10TA9 PO; +CLON0.5T3 PO; +LAMO100T PO; +LISI10TA2 PO; +NORT50CA PO; +VERA120C4 PO
--- NOTE | 2017-12-30 16:42 | RAD ---
Pelvic ultrasound History: Follow-up ovarian cyst Comparison: Direct images are not available. A report of outside pelvic ultrasound December 13, 2017 was reviewed. Technique: Transabdominal ultrasound was performed to evaluate the uterine fundus. Endovaginal imaging was performed to evaluate optimally the endometrial canal and lower uterine segment. TRANSABDOMINAL IMAGING Findings: The uterus measures 7.9 cm in length and is unremarkable. The endometrium measures 6 mm. Right ovary measures 1.9 x 2.5 x 2.6 cm and is unremarkable. The left ovary measures 2.9 x 2.5 x 3.2 cm and demonstrates 2.7 cm simple appearing follicle. No significant free fluid is seen. ENDOVAGINAL IMAGING Findings: Uterine length is estimated at 7.6 cm. Endometrial thickness is 4 mm Uterine leiomyoma is seen measuring 3.4 cm in maximum dimension. Right ovary measures 2.0 x 1.3 x 2.1 cm and is unremarkable. The left ovary measures 2.6 x 3.4 x 3.1 cm and demonstrates 2.4 cm simple appearing follicle; previously reported as 3.1 cm. No adnexal masses are identified. No significant free fluid is identified within the pelvis. Both ovaries demonstrate normal vascular flow upon Doppler interrogation and are without evidence of torsion. Impression: 1. Uterine leiomyoma. 2. Physiologic left ovarian follicle, apparently decreased in size. 3. Unremarkable right ovary. Electronically signed by: Sylvester Putnam MD (12/30/2017 4:38 PM) [id number]
== END | disposition home or self-care (01) ==
LOC: US 12:59
PROVIDERS: ATTEND Obstetrics & Gynecology
DX: D25.9 Leiomyoma of uterus, unspecified (principal)
CPT/HCPCS: 76830; 76856

== ENCOUNTER → 2018-01-31 | Outpatient (CLI) | payer OTHER ==
[~2018-01-31] MED LIST changes: +CLON0.5T11 PO; -CLON0.5T3 PO
--- NOTE | 2018-01-31 10:48 | RAD ---
Examination: Left Lower Extremity Venous Doppler Ultrasound History: Left leg swelling Comparison: None Procedure: Pozo scale, color flow 2D and spectal waveform analysis images are obtained with and without compression in the area of the common femoral vein, superficial femoral vein - femoral vein junction, main femoral vein (superficial femoral vein) and popliteal vein. Veins of the proximal calf are also imaged. Findings: There is normal duplex flow, color flow and compressibility of all visualized vein segments. No evidence of deep venous thrombus is present. Impression: No evidence of DVT in the visualized left lower extremity venous system. Electronically signed by: Omkar Diallo MD (01/31/2018 10:46 AM) [place] [id number]
== END | disposition home or self-care (01) ==
LOC: PMG 09:41
PROVIDERS: ATTEND Neuromusculoskeletal Medicine & OMM
DX: M79.89 Other specified soft tissue disorders (principal); I10 Essential (primary) hypertension; E78.5 Hyperlipidemia, unspecified; E78.00 Pure hypercholesterolemia, unspecified; E87.6 Hypokalemia; G43.909 Migraine, unspecified, not intractable, without status migrainosus
CPT/HCPCS: 93971

== ENCOUNTER → 2018-03-03 | Outpatient (CLI) | payer OTHER ==
[2018-03-03 10:42] LABS: BASO # 0.1 x10^3/uL (0.0-0.2); BASO % 1 % (0-3); EOS % 0 % (0-3); HEMATOCRIT 42.2 % (36.0-47.0); HEMOGLOBIN 14.2 g/dL (12.0-15.5); LYMPH # 1.7 x10^3/uL (1.0-4.8); LYMPH % 15 % (24-48); MEAN CORPUSCULAR HEMOGLOBIN 31 pg (25-35); MEAN CORPUSCULAR HGB CONC 34 g/dL (31-37); MEAN CORPUSCULAR VOLUME 91 fL (79-100); MONO # 0.7 x10^3/uL (0.0-1.1); MONO % 6 % (0-9); NEUT # 9.3 x10^3uL (1.8-7.7); NEUT % 79 % (31-73); PLATELET COUNT 312 x10^3/uL (140-400); RED BLOOD COUNT 4.64 x10^6/uL (3.50-5.40); RED CELL DISTRIBUTION WIDTH 13.5 % (11.5-14.5); WHITE BLOOD COUNT 11.8 x10^3/uL (4.0-11.0)
[2018-03-03 10:54] LABS: ALBUMIN 3.9 g/dL (3.4-5.0); CALCIUM 9.5 mg/dL (8.5-10.1); CREATININE 0.8 mg/dL (0.6-1.0); GFR 77.2; TOTAL BILIRUBIN 0.4 mg/dL (0.2-1.0); TOTAL PROTEIN 7.7 g/dL (6.4-8.2)
[2018-03-03 14:44] LABS: FREE T4 1.05 ng/dL (0.76-1.46); THYROID STIM HORMONE (TSH) 3.99 uIU/mL (0.358-3.740)
--- NOTE | 2018-03-03 15:17 | RAD ---
Thyroid ultrasound, 03/03/2018: HISTORY: Thyroid nodule The right lobe of the gland measures 4.4 x 1.6 x 1.6 cm while the left lobe of the gland measures 3.6 x 1.6 x 1.2 cm. A smooth 1.0 cm nodule is present in the upper pole of the right lobe of the gland. There appears to be internal color flow compatible with a predominately solid nodule. The solid component is isoechoic relative to the remainder of the gland. There is a small cystic component with a small echogenic focus along its rim. The nodule is wider than tall. No other thyroid nodule is seen. A small predominantly echogenic nodule along the lower pole of the right lobe of the gland is probably a lymph node. It measures 6 x 7 x 9 mm and therefore is not considered to be enlarged. IMPRESSION: Small nonspecific right thyroid nodule. This is considered to be TI-RADS 4 by ACR criteria. Sonographic follow-up is suggested. Electronically signed by: Lionel Willoughby MD (03/03/2018 3:13 PM) [facility]
[2018-03-03 23:10] LABS: LUTEINIZING HORMONE 5.8 mIU/mL (.); PROGESTERONE 0.2 ng/mL (.)
[2018-03-06 15:10] LABS: TESTOSTERONE FREE 0.16 ng/dL (0.10-0.85); TESTOSTERONE TOTAL 9 ng/dL (8-48)
[2018-03-07 13:10] LABS: ESTROGEN LEVEL 228 pg/mL (.)
== END | disposition home or self-care (01) ==
LOC: PMG 09:45
PROVIDERS: ATTEND Physician Assistant Medical
DX: E04.1 Nontoxic single thyroid nodule (principal); I10 Essential (primary) hypertension; E78.5 Hyperlipidemia, unspecified; E78.00 Pure hypercholesterolemia, unspecified; Z82.49 Family history of ischemic heart disease and other diseases of the circulatory system; E87.6 Hypokalemia; E83.42 Hypomagnesemia; M17.11 Unilateral primary osteoarthritis, right knee; I25.10 Atherosclerotic heart disease of native coronary artery without angina pectoris; Z87.19 Personal history of other diseases of the digestive system; Z90.49 Acquired absence of other specified parts of digestive tract; Z68.37 Body mass index [BMI] 37.0-37.9, adult; Z88.7 Allergy status to serum and vaccine; Z88.1 Allergy status to other antibiotic agents; Z88.8 Allergy status to other drugs, medicaments and biological substances; Z88.6 Allergy status to analgesic agent; Z79.899 Other long term (current) drug therapy
CPT/HCPCS: 36415; 76536; 80053; 82672; 83001; 83002; 84144; 84402; 84403; 84439; 84443; 84481; 85025

== ENCOUNTER 2018-04-10 18:56 | Emergency (ER) | payer OTHER ==
--- NOTE | 2018-04-10 19:41 | EKG ---
[address] [address] Test Date: 2018-04-10 Test Time: 19:36:32 Pat Name: EWELINA CONNOLLY Department: Room: Gender: F Sanitation Director: : [id number] Requested By: RACHEL DUPONT Order Number: [id number] Reading MD: Emile Cervantes MD Measurements Intervals Mousie Rate: 96 P: 24 PA: 134 QRS: 8 QRSD: 88 T: 28 QT: 350 QTc: 449 Interpretive Statements SINUS RHYTHM Electronically Signed On 04-11-2018 12:49:43 CDT by Emile Cervantes MD
[2018-04-10 19:43] LABS: BACTERIA,URINE 0 /HPF (0-FEW); BILIRUBIN,URINE NEG (NEG); CLARITY,URINE CLEAR; COLOR,URINE STRAW; GLUCOSE,URINE NEG (NEG); NITRITE,URINE NEG (NEG); RBC,URINE 0 /HPF (0-2); SQUAMOUS EPITHELIAL CELL,UR OCC /LPF; UROBILINOGEN,URINE 0.2 mg/dL (0.2 mg/dL); WBC,URINE 0 /HPF (0-4)
[2018-04-10] MEDS ORDERED: IV NORMAL SALINE 1,000ML 1,000 ML IV ONE (20:30)
[2018-04-10] MEDS ORDERED: diphenhydrAMINE 50 MG/ML VIAL IVP ONE (20:30)
[2018-04-10] MEDS ORDERED: METOCLOPRAMIDE HCL 10 MG/2 ML VIAL. IV ONE (20:30)
[2018-04-10] MEDS ORDERED: PROCHLORPERAZINE 10 MG/2 ML VIAL. IV ONE (20:30)
[2018-04-10 20:36] LABS: BASO # 0.1 x10^3/uL (0.0-0.2); BASO % 1 % (0-3); EOS % 1 % (0-3); HEMATOCRIT 40.7 % (36.0-47.0); HEMOGLOBIN 13.8 g/dL (12.0-15.5); LYMPH # 1.6 x10^3/uL (1.0-4.8); LYMPH % 21 % (24-48); MEAN CORPUSCULAR HEMOGLOBIN 31 pg (25-35); MEAN CORPUSCULAR HGB CONC 34 g/dL (31-37); MEAN CORPUSCULAR VOLUME 92 fL (79-100); MONO # 0.6 x10^3/uL (0.0-1.1); MONO % 8 % (0-9); NEUT # 5.4 x10^3uL (1.8-7.7); NEUT % 70 % (31-73); PLATELET COUNT 271 x10^3/uL (140-400); RED BLOOD COUNT 4.42 x10^6/uL (3.50-5.40); RED CELL DISTRIBUTION WIDTH 13.4 % (11.5-14.5); WHITE BLOOD COUNT 7.7 x10^3/uL (4.0-11.0)
[2018-04-10 20:49] LABS: ALBUMIN 3.5 g/dL (3.4-5.0); CALCIUM 8.9 mg/dL (8.5-10.1); CREATININE 0.9 mg/dL (0.6-1.0); GFR 67.4; POTASSIUM 3.6 mmol/L (3.5-5.1); TOTAL BILIRUBIN 0.3 mg/dL (0.2-1.0)
--- NOTE | 2018-04-10 21:18 | RAD ---
CT scan of the head without contrast 04/10/2018 Clinical History: Severe headaches. Technique: Unenhanced, contiguous, 5 mm axial sections were obtained through the head. One or more of the following individualized dose reduction techniques were utilized for this study: 1. Automated exposure control. 2. Adjustment of the mA and/or kV according to patient size. 3. Use of iterative reconstruction technique. Findings: Comparison study is dated 12/20/2017. The ventricles and sulci are within normal limits in size and configuration. No focal area of abnormal attenuation is seen involving the brain parenchyma. No extra-axial fluid collection is seen. Impression: No acute intracranial abnormality is seen. Electronically signed by: Singh Oconnor MD (04/10/2018 9:15 PM) [facility]
[2018-04-10] MEDS ORDERED: KETOROLAC 30 MG/ML VIAL. IV ONE (22:00)
[2018-04-10] MEDS ORDERED: DEXAMETHASONE SOD PHOS 10 MG/ML VIAL IV ONE (22:00)
[2018-04-10 22:34] VITALS: BP 117/58
[2018-04-10] MEDS ORDERED: HYDR-971 PO (22:37)
[2018-04-10] MEDS ORDERED: PROC10TA57 PO (22:37)
[2018-04-10] MEDS ORDERED: METH4TAB2 PO (22:37)
--- NOTE | 2018-04-11 02:16 | ED.ADGEN ---
Past History Past Medical History: Bipolar, High Cholesterol, Hypertension, Migraines, Other Past Surgical History: Appendectomy, Cholecystectomy, Alcohol Use: None Drug Use: None Adult General Chief Complaint Chief Complaint Headache HPI HPI Patient is a 47 year old female with h/o migraine, htn who presents with headache, nausea and vomiting. LOPES is moderate and throbbing. No chest pain, palpitations, SOB, leg pain or swelling. No abdominal pain or flank pain. BP elevated earlier today, took additional blood pressure home. Patient as noted to be tachycardic. No other symptoms or complaint. [] Review of Systems Review of Systems ROS as per HPI All other systems were reviewed and found to be within normal limits, except as documented in this note. Current Medications Current Medications Current Medications Medications (Trade) Dose Ordered Sig/Shakira Start Time Stop Time Status Last Admin Dose Admin Dexamethasone Sodium Phosphate (Decadron) 10 mg 1X ONCE 04/10/18 22:00 04/10/18 22:01 DC 04/10/18 21:54 10 MG Diphenhydramine HCl (Benadryl) 25 mg 1X ONCE 04/10/18 20:30 04/10/18 20:31 DC 04/10/18 20:13 25 MG Fentanyl Citrate (Fentanyl 2ml Vial) 75 mcg 1X ONCE 04/10/18 21:15 04/10/18 21:16 DC 04/10/18 21:12 75 MCG Ketorolac Tromethamine (Toradol 30mg Vial) 30 mg 1X ONCE 04/10/18 22:00 04/10/18 22:01 DC 04/10/18 21:55 30 MG Metoclopramide HCl (Reglan Vial) 10 mg 1X ONCE 04/10/18 20:30 04/10/18 20:31 DC 04/10/18 20:13 10 MG Prochlorperazine Edisylate (Compazine) 10 mg 1X ONCE 04/10/18 20:30 04/10/18 20:31 DC 04/10/18 20:12 10 MG Sodium Chloride 1,000 ml @ 1,000 mls/hr 1X ONCE 04/10/18 20:30 04/10/18 21:29 DC 04/10/18 20:12 1,000 MLS/HR Allergies Allergies Allergies Coded Allergies Type Severity Reaction Last Updated Verified propoxyphene Allergy Intermediate Hives 09/07/16 Yes tetanus and diphtheria toxoids Allergy Intermediate Hives 09/07/16 Yes Physical Exam Physical Exam Constitutional: Well developed, well nourished, no acute distress, non-toxic appearance. [] HENT: Normocephalic, atraumatic, bilateral external ears normal, oropharynx moist, nose normal. [] Eyes: PERRLA, EOMI, conjunctiva normal. [] Neck: Normal range of motion, no tenderness. [] Cardiovascular:Heart rate regular rhythm, no murmur [] Lungs & Thorax: Bilateral breath sounds clear to auscultation [] Abdomen: Bowel sounds normal, soft, no tenderness. [] Skin: Warm, dry, no erythema, no rash. [] Back: No tenderness. [] Extremities: No tenderness, no edema. [] Neurologic: Alert and oriented X 3, CN 2-12, normal motor function, normal sensory function, no focal deficits noted. [] Psychologic: Affect normal, judgement normal, mood normal. [] Current Patient Data Vital Signs Vital Signs Date Time Temp Pulse Resp B/P (MAP) Pulse Ox O2 Delivery O2 Flow Rate FiO2 04/10/18 21:12 18 97 Room Air 04/10/18 19:00 98.2 101 Lab Results Laboratory Tests Test 04/10/18 19:00 04/10/18 20:15 Urine Collection Type Unknown Urine Color Straw Urine Clarity Clear Urine pH 6.0 Urine Specific Lawrence <=1.005 Urine Protein Neg (NEG-TRACE) Urine Glucose (UA) Neg mg/dL (NEG) Urine Ketones (Stick) Neg mg/dL (NEG) Urine Blood Neg (NEG) Urine Nitrite Neg (NEG) Urine Bilirubin Neg (NEG) Urine Urobilinogen Dipstick 0.2 mg/dL (0.2 mg/dL) Urine Leukocyte Esterase Neg (NEG) Urine RBC 0 /HPF (0-2) Urine WBC 0 /HPF (0-4) Urine Squamous Epithelial Cells Occ /LPF Urine Bacteria 0 /HPF (0-FEW) White Blood Count 7.7 x10^3/uL (4.0-11.0) Red Blood Count 4.42 x10^6/uL (3.50-5.40) Hemoglobin 13.8 g/dL (12.0-15.5) Hematocrit 40.7 % (36.0-47.0) Mean Corpuscular Volume 92 fL (79-100) Mean Corpuscular Hemoglobin 31 pg (25-35) Mean Corpuscular Hemoglobin Concent 34 g/dL (31-37) Red Cell Distribution Width 13.4 % (11.5-14.5) Platelet Count 271 x10^3/uL (140-400) Neutrophils (%) (Auto) 70 % (31-73) Lymphocytes (%) (Auto) 21 % (24-48) L Monocytes (%) (Auto) 8 % (0-9) Eosinophils (%) (Auto) 1 % (0-3) Basophils (%) (Auto) 1 % (0-3) Neutrophils # (Auto) 5.4 x10^3uL (1.8-7.7) Lymphocytes # (Auto) 1.6 x10^3/uL (1.0-4.8) Monocytes # (Auto) 0.6 x10^3/uL (0.0-1.1) Eosinophils # (Auto) 0.0 x10^3/uL (0.0-0.7) Basophils # (Auto) 0.1 x10^3/uL (0.0-0.2) D-Dimer (Susan) 0.32 mg/L (0.00-0.50) Sodium Level 137 mmol/L (136-145) Potassium Level 3.6 mmol/L (3.5-5.1) Chloride Level 104 mmol/L (98-107) Carbon Dioxide Level 24 mmol/L (21-32) Anion Gap 9 (6-14) Blood Urea Nitrogen 12 mg/dL (7-20) Creatinine 0.9 mg/dL (0.6-1.0) Estimated GFR (Cockcroft-Gault) 67.4 BUN/Creatinine Ratio 13 (6-20) Glucose Level 122 mg/dL (70-99) H Calcium Level 8.9 mg/dL (8.5-10.1) Total Bilirubin 0.3 mg/dL (0.2-1.0) Aspartate Amino Transferase (AST) 14 U/L (15-37) L Alanine Aminotransferase (ALT) 31 U/L (14-59) Alkaline Phosphatase 111 U/L (46-116) Total Protein 7.0 g/dL (6.4-8.2) Albumin 3.5 g/dL (3.4-5.0) Albumin/Globulin Ratio 1.0 (1.0-1.7) EKG EKG EKG: NSR, rate 96, QTC [] Radiology/Procedures Radiology/Procedures [] Course & Med Decision Making Course & Med Decision Making Pertinent Labs and Imaging studies reviewed. (See chart for details) [No focal logic deficits. Lab chem imaging reassuring. Headache resolved with treatment. Recommend follow-up with PCP for further evaluation and treatment.] Final Impression Final Impression [1. headache 2. accelerated thn] Dragon Disclaimer Dragon Disclaimer This electronic medical record was generated, in whole or in part, using a voice recognition dictation system. RACHEL DUPONT DO Apr 11, 2018 02:16
== END 2018-04-10 22:40 | disposition home or self-care (01) ==
LOC: ER 18:56
DX: R51 Headache (principal); I10 Essential (primary) hypertension; R11.2 Nausea with vomiting, unspecified; F31.9 Bipolar disorder, unspecified; E78.00 Pure hypercholesterolemia, unspecified; G43.909 Migraine, unspecified, not intractable, without status migrainosus; Z88.7 Allergy status to serum and vaccine; Z88.8 Allergy status to other drugs, medicaments and biological substances
CPT/HCPCS: 36415; 70450; 80053; 81001; 84443; 85025; 85379; 93005; 96361; 96374; 96375; 99285; J0780; J1100; J1200; J1885; J2765; J3010; J7030

== ENCOUNTER → 2018-04-20 | Outpatient (CLI) | payer OTHER ==
[2018-04-10 22:34] VITALS: BP 117/58
[~2018-04-20] MED LIST changes: +METH4TAB2 PO; +PROC10TA57 PO
--- NOTE | 2018-04-20 14:31 | RAD ---
Renal ultrasound 04/20/2018 CLINICAL HISTORY: Hematuria and right flank pain. TECHNIQUE: A real-time ultrasound examination of both kidneys and the urinary bladder was performed. Multiple images were obtained. FINDINGS: Both kidneys are within normal limits in size and echogenicity. The right kidney measures 10.9 cm in length. The left kidney measures 10.6 cm in length. No focal abnormality of either kidney is seen. No renal calculus is noted. There is no evidence of hydronephrosis. The urinary bladder distended with urine. No abnormality is seen. IMPRESSION: Negative study. Electronically signed by: Singh Oconnor MD (04/20/2018 2:28 PM) [id number]
== END | disposition home or self-care (01) ==
LOC: US 08:45
PROVIDERS: ATTEND Obstetrics & Gynecology
DX: R31.9 Hematuria, unspecified (principal); R10.9 Unspecified abdominal pain; I10 Essential (primary) hypertension; E78.5 Hyperlipidemia, unspecified; E78.00 Pure hypercholesterolemia, unspecified; Z87.19 Personal history of other diseases of the digestive system
CPT/HCPCS: 76770

== ENCOUNTER → 2018-04-21 | Outpatient (CLI) | payer OTHER ==
[2018-04-10 22:34] VITALS: BP 117/58
--- NOTE | 2018-04-21 09:39 | RAD ---
Examination: CT ABDOMEN PELVIS WO CONTRAST History: rt flank pain and hematuria Comparison/Correlation: 01/25/2017 CT abdomen pelvis without contrast Findings: Axial images of the abdomen and pelvis were obtained without contrast. Sagittal and coronal reformatted images were provided. Visualized lung bases are clear. Cholecystectomy noted. Liver, spleen, pancreas, and adrenal glands are normal. Kidneys are unremarkable. Suture material about the cecum is noted without the appendix identified. No extraluminal gas. No enlarged abdominal or pelvic lymph nodes. No ascites or pelvic free fluid. Bilateral adnexal cysts are present. These measure up to 5 cm in the right and 2.9 cm on the left. Urinary bladder is partially distended. Bony structures are unremarkable for the patient's age. Sacroiliac joint vacuum phenomenon bilaterally noted. Impression: No radiopaque collecting system calculi or evidence of obstruction. Consider further evaluation if mass lesion or other suspicious process is of concern with contrast enhanced CT exam. Bilateral adnexal cysts are present and probably physiologic. The right adnexal cyst is new upon correlation with 12/30/2017 pelvic ultrasound exam. Correlate clinically and determine interval follow-up ultrasound exam to assess stability or resolution. Electronically signed by: Matteo Dela Cruz MD (04/21/2018 9:35 AM) [facility]
== END | disposition home or self-care (01) ==
LOC: CT 08:22
PROVIDERS: ATTEND Obstetrics & Gynecology
DX: R10.31 Right lower quadrant pain (principal); R31.9 Hematuria, unspecified; I10 Essential (primary) hypertension; E78.5 Hyperlipidemia, unspecified; E78.00 Pure hypercholesterolemia, unspecified; Z90.49 Acquired absence of other specified parts of digestive tract; Z88.2 Allergy status to sulfonamides
CPT/HCPCS: 74176

== ENCOUNTER → 2018-05-22 | Outpatient (CLI) | payer OTHER ==
--- NOTE | 2018-05-22 16:23 | RAD ---
Indication:HX OF OVARIAN CYSTS TECHNIQUE: Grayscale, color Doppler and spectral waveform images of the pelvis obtained. COMPARISON:None FINDINGS: The uterus is anteverted and measures 10.0 x 3.3 x 4.5 cm (longitudinal, AP, transverse). Endometrial stripe measures 9 mm in thickness and is within normal limits. There is mild dilation of the endocervical canal. The left ovary measures 3.4 x 2.3 x 4.4 cm and demonstrates evidence of blood flow. Right ovaries are visualized. There is a isoechoic round masslike lesion in the anterior lower body of the uterus measuring 1.1 x 1.6 x 1.6 cm most likely a small fibroid. Small amount of free pelvic fluid, nonspecific likely physiologic. IMPRESSION: 1. Right ovary not visualized due to overlying bowel gas. 2. Left ovary demonstrates evidence of blood flow. 3. Small solitary fibroid in the lower anterior uterine body versus granulation tissue/scar from . Correlate with history. 4. Mild dilation of the endocervical canal, nonspecific. Correlate with physical exam. Electronically signed by: Ambrocio Gunn DO (05/22/2018 4:20 PM) [facility]
== END | disposition home or self-care (01) ==
LOC: US 11:08
PROVIDERS: ATTEND Obstetrics & Gynecology
DX: R93.89 Abnormal findings on diagnostic imaging of other specified body structures (principal); Z85.43 Personal history of malignant neoplasm of ovary
CPT/HCPCS: 76830; 76856

== ENCOUNTER → 2018-06-01 | Outpatient (CLI) | payer OTHER ==
[~2018-06-01] MED LIST changes: +HYDR-3165 PO; -HYDR-971 PO; +MELO7.5T5 PO; +ONDA4TAB10 SL
--- NOTE | 2018-06-01 15:36 | RAD ---
Pelvic ultrasound-transvaginal, 06/01/2018: HISTORY: Follow-up for nonvisualization of right ovary on the 06/22/2018 exam Only transvaginal scans were obtained at this time. The uterus is within normal limits in size. A small amount of fluid is noted in the cervical canal compatible with patient's current menses. The central uterine echo complex is not clearly defined but does not appear thickened. There is a vague hypoechoic area in the fundal region containing a focus of increased echogenicity. The appearance suggests a uterine fibroid measuring approximately 2 cm. The ovaries are within normal limits in size. There is blood flow in both ovaries. No ovarian mass is evident. No free fluid is seen in the pelvis. IMPRESSION: 1. No ovarian abnormality is detected. 2. Probable small uterine fibroid. Electronically signed by: Lionel Willoughby MD (06/01/2018 3:33 PM) [facility]
== END | disposition home or self-care (01) ==
LOC: US 14:23
PROVIDERS: ATTEND Obstetrics & Gynecology
DX: R93.89 Abnormal findings on diagnostic imaging of other specified body structures (principal)
CPT/HCPCS: 76830

== ENCOUNTER 2018-06-07 15:08 | Emergency (ER) | payer OTHER ==
[~2018-06-07] VITALS: Ht 170.2 cm; Wt 117.0 kg
[~2018-06-07 15:08] MED LIST changes: -MELO7.5T5 PO; -ONDA4TAB10 SL
[2018-06-07] MEDS ORDERED: IV NORMAL SALINE 1,000ML 1,000 ML IV SCH (15:32)
[2018-06-07] MEDS ORDERED: ONDANSETRON PF 4 MG/2 ML VIAL. IV ONE ×2 (15:45→19:15)
[2018-06-07] MEDS ORDERED: KETOROLAC 30 MG/ML VIAL. IV ONE (15:45)
[2018-06-07 15:49] LABS: BACTERIA,URINE 0 /HPF (0-FEW); BILIRUBIN,URINE NEG (NEG); CLARITY,URINE CLEAR; COLOR,URINE YELLOW; GLUCOSE,URINE NEG (NEG); NITRITE,URINE NEG (NEG); RBC,URINE RARE /HPF (0-2); SQUAMOUS EPITHELIAL CELL,UR FEW /LPF; UROBILINOGEN,URINE 0.2 mg/dL (0.2 mg/dL); WBC,URINE 0 /HPF (0-4)
[2018-06-07 16:08] LABS: BASO % 1 % (0-3); EOS % 1 % (0-3); HEMATOCRIT 43.2 % (36.0-47.0); HEMOGLOBIN 14.6 g/dL (12.0-15.5); LYMPH # 1.4 x10^3/uL (1.0-4.8); LYMPH % 17 % (24-48); MEAN CORPUSCULAR HEMOGLOBIN 31 pg (25-35); MEAN CORPUSCULAR HGB CONC 34 g/dL (31-37); MEAN CORPUSCULAR VOLUME 91 fL (79-100); MONO # 0.5 x10^3/uL (0.0-1.1); MONO % 6 % (0-9); NEUT # 6.3 x10^3uL (1.8-7.7); NEUT % 77 % (31-73); PLATELET COUNT 292 x10^3/uL (140-400); RED BLOOD COUNT 4.75 x10^6/uL (3.50-5.40); RED CELL DISTRIBUTION WIDTH 13.5 % (11.5-14.5); WHITE BLOOD COUNT 8.2 x10^3/uL (4.0-11.0)
[2018-06-07 16:16] LABS: ALBUMIN 3.8 g/dL (3.4-5.0); CALCIUM 9.3 mg/dL (8.5-10.1); CREATININE 0.9 mg/dL (0.6-1.0); GFR 67.4; POTASSIUM 3.6 mmol/L (3.5-5.1); TOTAL BILIRUBIN 0.4 mg/dL (0.2-1.0); TOTAL PROTEIN 7.5 g/dL (6.4-8.2)
--- NOTE | 2018-06-07 16:41 | PHYS DOC ---
Past History Past Medical History: Bipolar, High Cholesterol, Hypertension, Migraines, Other Past Surgical History: Appendectomy, Cholecystectomy, Alcohol Use: None Drug Use: None Adult General Chief Complaint Chief Complaint: ABDOMINAL PAIN HPI HPI Patient is a 47 year old female who presents with complaining of right lower quadrant pain. 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 Patient complaining of almost sudden onset of right lower quadrant pain that started around 8 AM as a constant pain with radiation to her back and rated her pain 5/ 10. Patient complaining of nausea without vomiting and denies urinary symptoms, fever and chills. Patient states she had a few episodes of diarrhea several days ago. Patient states she diagnosed with right ovarian cyst previously that disappeared in another ultrasound and is concern for possible another ovarian cyst. Patient had history of appendectomy and cholecystectomy. Review of Systems Review of Systems Constitutional: Denies fever or chills [] Eyes: Denies change in visual acuity, redness, or eye pain [] HENT: Denies nasal congestion or sore throat [] Respiratory: Denies cough or shortness of breath [] Cardiovascular: No additional information not addressed in HPI [] GI: Reports abdominal pain, nausea, diarrhea, denies vomiting, bloody stools. : Denies dysuria or hematuria [] Musculoskeletal: Denies back pain or joint pain [] Integument: Denies rash or skin lesions [] Neurologic: Denies headache, focal weakness or sensory changes [] Endocrine: Denies polyuria or polydipsia [] All other systems were reviewed and found to be within normal limits, except as documented in this note. Current Medications Current Medications Current Medications Medications (Trade) Dose Ordered Sig/[facility] Start Time Stop Time Status Last Admin Dose Admin Ketorolac Tromethamine (Toradol 30mg Vial) 30 mg 1X ONCE 06/07/18 15:45 06/07/18 15:47 DC 06/07/18 15:47 30 MG Ondansetron HCl (Zofran) 4 mg 1X ONCE 06/07/18 15:45 06/07/18 15:47 DC 06/07/18 15:46 4 MG Sodium Chloride 1,000 ml @ 1,000 mls/hr Q1H 06/07/18 15:32 06/07/18 16:31 06/07/18 15:46 1,000 MLS/HR Allergies Allergies Allergies Coded Allergies Type Severity Reaction Last Updated Verified propoxyphene Allergy Intermediate Hives 09/07/16 Yes tetanus and diphtheria toxoids Allergy Intermediate Hives 09/07/16 Yes Physical Exam Physical Exam Constitutional: Well developed, well nourished, mild distress, non-toxic appearance. [] HENT: Normocephalic, atraumatic, oropharynx moist. Eyes: PERRLA, EOMI, conjunctiva normal, no discharge. [] Neck: Normal range of motion, no tenderness, supple, no stridor. [] Cardiovascular:Heart rate regular rhythm, no murmur [] Lungs & Thorax: Bilateral breath sounds clear to auscultation [] Abdomen: Bowel sounds normal, soft, right lower quadrant guarding, no tenderness , no masses, no pulsatile masses. [] Skin: Warm, dry, no erythema, no rash. [] Back: No tenderness, no CVA tenderness. [] Extremities: No tenderness, no cyanosis, no clubbing, ROM intact, no edema. [] Neurologic: Alert and oriented X 3, normal motor function, normal sensory function, no focal deficits noted. [] Psychologic: Affect anxious, judgement normal, mood normal. [] Current Patient Data Vital Signs Vital Signs Date Time Temp Pulse Resp B/P (MAP) Pulse Ox O2 Delivery O2 Flow Rate FiO2 06/07/18 15:26 98.5 96 18 100 Room Air Lab Results Laboratory Tests Test 06/07/18 15:20 06/07/18 15:38 Urine Collection Type Unknown Urine Color Yellow Urine Clarity Clear Urine pH 6.5 Urine Specific [place] 1.010 Urine Protein Neg (NEG-TRACE) Urine Glucose (UA) Neg mg/dL (NEG) Urine Ketones (Stick) Neg mg/dL (NEG) Urine Blood Neg (NEG) Urine Nitrite Neg (NEG) Urine Bilirubin Neg (NEG) Urine Urobilinogen Dipstick 0.2 mg/dL (0.2 mg/dL) Urine Leukocyte Esterase Neg (NEG) Urine RBC Rare /HPF (0-2) Urine WBC 0 /HPF (0-4) Urine Squamous Epithelial Cells Few /LPF Urine Bacteria 0 /HPF (0-FEW) White Blood Count 8.2 x10^3/uL (4.0-11.0) Red Blood Count 4.75 x10^6/uL (3.50-5.40) Hemoglobin 14.6 g/dL (12.0-15.5) Hematocrit 43.2 % (36.0-47.0) Mean Corpuscular Volume 91 fL (79-100) Mean Corpuscular Hemoglobin 31 pg (25-35) Mean Corpuscular Hemoglobin Concent 34 g/dL (31-37) Red Cell Distribution Width 13.5 % (11.5-14.5) Platelet Count 292 x10^3/uL (140-400) Neutrophils (%) (Auto) 77 % (31-73) H Lymphocytes (%) (Auto) 17 % (24-48) L Monocytes (%) (Auto) 6 % (0-9) Eosinophils (%) (Auto) 1 % (0-3) Basophils (%) (Auto) 1 % (0-3) Neutrophils # (Auto) 6.3 x10^3uL (1.8-7.7) Lymphocytes # (Auto) 1.4 x10^3/uL (1.0-4.8) Monocytes # (Auto) 0.5 x10^3/uL (0.0-1.1) Eosinophils # (Auto) 0.0 x10^3/uL (0.0-0.7) Basophils # (Auto) 0.0 x10^3/uL (0.0-0.2) Sodium Level 136 mmol/L (136-145) Potassium Level 3.6 mmol/L (3.5-5.1) Chloride Level 100 mmol/L (98-107) Carbon Dioxide Level 26 mmol/L (21-32) Anion Gap 10 (6-14) Blood Urea Nitrogen 8 mg/dL (7-20) Creatinine 0.9 mg/dL (0.6-1.0) Estimated GFR (Cockcroft-Gault) 67.4 BUN/Creatinine Ratio 9 (6-20) Glucose Level 113 mg/dL (70-99) H Calcium Level 9.3 mg/dL (8.5-10.1) Total Bilirubin 0.4 mg/dL (0.2-1.0) Aspartate Amino Transferase (AST) 22 U/L (15-37) Alanine Aminotransferase (ALT) 27 U/L (14-59) Alkaline Phosphatase 118 U/L (46-116) H Total Protein 7.5 g/dL (6.4-8.2) Albumin 3.8 g/dL (3.4-5.0) Albumin/Globulin Ratio 1.0 (1.0-1.7) Lipase 159 U/L (73-393) EKG EKG [] Radiology/Procedures Radiology/Procedures [address] [address] IMAGING REPORT Signed PATIENT: EWELINA CONNOLLY ACCOUNT: [id number] : 1970 LOCATION: ER AGE: 47 SEX: F EXAM STATUS: REG ER ORD. PHYSICIAN: IVON RAMACHANDRAN MD REASON: FLANK PAIN BILAT, HEMATURIA PROCEDURE: RENAL COMPLETE BILATERAL RENAL COMPLETE BILATERAL History: Right lower quadrant pain, flank pain for 2 weeks, hematuria Comparison: None. Findings: Multiple sonographic images of the kidneys and urinary bladder are submitted. Right kidney measured 10.7 x 5.4 x 5 0.5 cc. Left kidney measured 10.8 x 5.8 x 5.3 cm. There is no hydronephrosis of either kidney. Bladder is not seen, patient voided prior to exam. Impression: 1. There is no hydronephrosis of either kidney. Electronically signed by: Kush Calix MD (06/07/2018 5:37 PM) [facility] DICTATED AND SIGNED BY: KUSH CALIX MD DATE: 06/07/18 9057 CC: IVON RAMACHANDRAN MD; FREDERICK CHEEMA ~ Course & Med Decision Making Course & Med Decision Making Pertinent Labs and Imaging studies reviewed. (See chart for details) Evaluation of patient in ER showed 47-year-old female patient with complaining of right lower quadrant pain for several hours and nausea. Patient has right lower quadrant guarding without tenderness. Patient had unremarkable labs and renal ultrasound. Patient treated with IV fluid, Zofran, Reglan, Toradol and Warren improvement of her pain. Patient has pending pelvic ultrasound result and Dr. Nayak informed about following up with test results. See Dr. Ramachandran chart for further details. Pt. at time discharge having increased pain. Discussed options of further evaluation. Pt. elects to complete a CT of abd. CT of abdomen shows no acute surgical processes. Does have a 3.4 cm ovarian cyst on Lt. . No hydronephrosis, No free pelvic fluid or adenopathy. Pt. to stay on clear fluid diet only x 24 hrs. Re-exam if no improvement. Consider colon scopic exam since family hx of colitis for further evaluations. Return if any concern.s Impression : 1. Abdomen pain Rt. Lower 2. Lt. Ovarian Cyst [] Dragon Disclaimer Dragon Disclaimer This electronic medical record was generated, in whole or in part, using a voice recognition dictation system. Departure Departure: Impression: Primary Impression: Right lower quadrant pain Additional Impressions: Nausea Morbid obesity Disposition: 01 HOME, SELF-CARE Condition: STABLE Referrals: FREDERICK CHEEMA (PCP) Patient Instructions: Abdominal Pain Additional Instructions: Drink plenty of liquids Follow-up with your primary care physician in 3-5 days Return to ER if not getting better Scripts Ondansetron (ZOFRAN ODT) 4 Mg Tab.rapdis 1 TAB SL Q8HRS PRN for nausea and vomiting, #15 TAB Prov: IVON RAMACHANDRAN MD 06/07/18 Hydrocodone Bit/Acetaminophen (NORCO 5-325 TABLET) 1 Each Tablet 1 TAB PO PRN Q6HRS PRN for PAIN, #10 TAB 0 Refills Prov: IVON RAMACHANDRAN MD 06/07/18 Problem Qualifiers IVON RAMACHANDRAN MD Jun 07, 2018 16:41 MAGI NAYAK MD Jun 07, 2018 21:38
--- NOTE | 2018-06-07 17:40 | RAD ---
RENAL COMPLETE BILATERAL History: Right lower quadrant pain, flank pain for 2 weeks, hematuria Comparison: None. Findings: Multiple sonographic images of the kidneys and urinary bladder are submitted. Right kidney measured 10.7 x 5.4 x 5 0.5 cc. Left kidney measured 10.8 x 5.8 x 5.3 cm. There is no hydronephrosis of either kidney. Bladder is not seen, patient voided prior to exam. Impression: 1. There is no hydronephrosis of either kidney. Electronically signed by: Jean Calix MD (06/07/2018 5:37 PM) [facility]
[2018-06-07] MEDS ORDERED: ONDA4TAB10 SL (17:50)
[2018-06-07] MEDS ORDERED: METOCLOPRAMIDE HCL 10 MG/2 ML VIAL. ONE (17:50)
[2018-06-07] MEDS ORDERED: HYDROcodone/APAP 5/325MG 1 TAB TABLET ONE (17:50)
[2018-06-07] MEDS ORDERED: HYDR-3165 PO (17:50)
[2018-06-07] MEDS ORDERED: HYDROcodone/APAP 5/325MG 1 TAB TABLET PO ONE (18:00)
[2018-06-07] MEDS ORDERED: METOCLOPRAMIDE HCL 10 MG/2 ML VIAL. IV ONE (18:00)
--- NOTE | 2018-06-07 18:24 | RAD ---
Pelvic ultrasound dated 06/07/2018. No comparison available. CLINICAL INDICATION: Right lower quadrant pain and flank pain and hematuria. FINDINGS: Transabdominal and transvaginal imaging performed. Uterus measures 9.0 x 5.0 x 3.6 cm. No focal uterine mass. Endometrial complex is normal in thickness measuring 2 mm. Right ovary measures 2.3 x 1.9 x 1.7 cm. Left ovary is not clearly identified. No adnexal mass or free fluid. There is a small amount of fluid within the cervical canal. There is also a small nodular focus at the cervix that measures about 3.6 mm maximum dimension, possibly a small polyp. IMPRESSION: 1. No acute sonographic abnormality. 2. Small amount of fluid within the cervical canal with possible small cervical polyp. Correlate with physical exam. 3. The left ovary is not clearly identified. No apparent adnexal mass or free fluid. Electronically signed by: Sylvester Will MD (06/07/2018 6:20 PM) [facility]
[2018-06-07] MEDS ORDERED: IOHEXOL 240 MG/ML 50ML VIAL. ONE (18:36)
[2018-06-07] MEDS ORDERED: MORPHINE SULFATE 10 MG/ML SYRINGE. IV ONE (18:45)
[2018-06-07] MEDS ORDERED: IOHEXOL 300 MG/ML 75 ML VIAL. IV ONE (19:00)
[2018-06-07] MEDS ORDERED: IOHEXOL 240 MG/ML 50ML VIAL. PO ONE (19:00)
[2018-06-07] MEDS ORDERED: diphenhydrAMINE 50 MG/ML VIAL IVP ONE (19:45)
[2018-06-07] MEDS ORDERED: PROCHLORPERAZINE 10 MG/2 ML VIAL. IV ONE (19:45)
--- NOTE | 2018-06-07 20:47 | RAD ---
CT ABD PELV W/ORAL IV CONTRAST dated 06/07/2018 6:34 PM Indication: Pain.Omni 300 75cc: RLQ pain with nauseaand radiation to her back. Hx: Ovarian cyst, appendectomy, bladder surgery, cholecystectomy, endometrial ablation. Comparison: No comparison is available. Technique: Contiguous axial imaging of the abdomen and pelvis performed following the major venous administration of 75 cc Omnipaque 300. One or more of the following individualized dose reduction techniques were utilized for this examination: 1. Automated exposure control 2. Adjustment of the mA and/or kV according to patient size 3. Use of iterative reconstruction technique Findings: Limited images of lung bases are clear. Heart size within normal limits. No pleural or pericardial effusion. Liver, spleen, pancreas, adrenal glands and kidneys are unremarkable. No hydronephrosis. The gallbladder is surgically absent. Partially opacified GI tract normal in caliber and contour. No focal bowel wall thickening. No inflammatory stranding in the mesentery. No ascites or lymphadenopathy. Abdominal aorta normal in caliber. The appendix is surgically absent. Images of pelvis show nondistended urinary bladder. Uterus is unremarkable. There is a 3.4 cm left ovarian cyst. No free pelvic fluid or pelvic lymphadenopathy. Bone windows show no acute findings. Mild multilevel spondylosis. IMPRESSION: 1. No acute abnormality of abdomen or pelvis. 2. Small left ovarian cyst. 3. Status post cholecystectomy. Electronically signed by: Sylvester Will MD (06/07/2018 8:44 PM) [facility]
[2018-06-07 21:00] VITALS: BP 104/57
== END 2018-06-07 21:18 | disposition home or self-care (01) ==
LOC: ER 15:08
DX: N83.202 Unspecified ovarian cyst, left side (principal); R42 Dizziness and giddiness; R19.7 Diarrhea, unspecified; E66.01 Morbid (severe) obesity due to excess calories; E78.00 Pure hypercholesterolemia, unspecified; I10 Essential (primary) hypertension; G43.909 Migraine, unspecified, not intractable, without status migrainosus; F31.9 Bipolar disorder, unspecified; Z68.41 Body mass index [BMI] 40.0-44.9, adult; Z90.89 Acquired absence of other organs; Z90.49 Acquired absence of other specified parts of digestive tract; Z98.890 Other specified postprocedural states; Z88.7 Allergy status to serum and vaccine; Z88.8 Allergy status to other drugs, medicaments and biological substances
CPT/HCPCS: 36415; 74177; 76770; 76830; 76856; 80053; 81001; 83690; 85025; 96361; 96374; 96375; 96376; 99285; J0780; J1200; J1885; J2270; J2405; J2765; Q9966; Q9967; J7030

== ENCOUNTER 2018-06-13 05:13 | Emergency (ER) | payer OTHER ==
[~2018-06-13] VITALS: Ht 170.2 cm; Wt 113.4 kg
[~2018-06-13 05:13] MED LIST changes: +ONDA4TAB10 SL
[2018-06-13 05:22] VITALS: BP 147/94
--- NOTE | 2018-06-13 05:35 | ED.ADGEN ---
Past History Past Medical History: Bipolar, Hypertension, Migraines Past Surgical History: Appendectomy, Colectomy, Alcohol Use: None Drug Use: None Adult General Chief Complaint Chief Complaint shoulder pain HPI HPI 47 years old female presented to the emergency department with shoulder pain for the Past 24 hours after potion the patient call in the emergency department. Patient describes a sharp constant pain in the right shoulder, with the limited range of motion ( ext) due to pain Review of Systems Review of Systems Constitutional: Denies fever or chills [] Eyes: Denies change in visual acuity, redness, or eye pain [] HENT: Denies nasal congestion or sore throat [] Respiratory: Denies cough or shortness of breath [] Cardiovascular: No additional information not addressed in HPI [] GI: Denies abdominal pain, nausea, vomiting, bloody stools or diarrhea [] : Denies dysuria or hematuria [] Musculoskeletal: Denies back pain Integument: Denies rash or skin lesions [] Neurologic: Denies headache, focal weakness or sensory changes [] Endocrine: Denies polyuria or polydipsia [] All other systems were reviewed and found to be within normal limits, except as documented in this note. Allergies Allergies Allergies Coded Allergies Type Severity Reaction Last Updated Verified propoxyphene Allergy Intermediate Hives 09/07/16 Yes tetanus and diphtheria toxoids Allergy Intermediate Hives 09/07/16 Yes Physical Exam Physical Exam Constitutional: Well developed, well nourished, no acute distress, non-toxic appearance. [] HENT: Normocephalic, atraumatic, bilateral external ears normal, oropharynx moist, no oral exudates, nose normal. [] Eyes: PERRLA, EOMI, conjunctiva normal, no discharge. [] Neck: Normal range of motion, no tenderness, supple, no stridor. [] Cardiovascular:Heart rate regular rhythm, no murmur [] Lungs & Thorax: Bilateral breath sounds clear to auscultation [] Abdomen: Bowel sounds normal, soft, no tenderness, no masses, no pulsatile masses. [] Skin: Warm, dry, no erythema, no rash. [] Back: No tenderness, no CVA tenderness. [] Extremities: Tender right shoulder , unable to extend it beyond 90 Neurologic: Alert and oriented X 3, normal motor function, normal sensory function, no focal deficits noted. [] Psychologic: Affect normal, judgement normal, mood normal. [] Current Patient Data Vital Signs Vital Signs Date Time Temp Pulse Resp B/P (MAP) Pulse Ox O2 Delivery O2 Flow Rate FiO2 06/13/18 05:22 98.3 82 18 100 Room Air EKG EKG [] Radiology/Procedures Radiology/Procedures [] Course & Med Decision Making Course & Med Decision Making Pertinent Labs and Imaging studies reviewed. (See chart for details) [] Final Impression Final Impression [] Problems: (1) Injury of right rotator cuff Qualifiers: Qualified Codes: S46.001A - Unspecified injury of muscle(s) and tendon(s) of the rotator cuff of right shoulder, initial encounter Dragon Disclaimer Dragon Disclaimer This electronic medical record was generated, in whole or in part, using a voice recognition dictation system. STAN BRAVO MD Jun 13, 2018 05:35
[2018-06-13] MEDS ORDERED: MELO7.5T5 PO (05:36)
== END 2018-06-13 05:39 | disposition home or self-care (01) ==
LOC: ER 05:13
DX: S46.001A Unspecified injury of muscle(s) and tendon(s) of the rotator cuff of right shoulder, initial encounter (principal); I10 Essential (primary) hypertension; G43.909 Migraine, unspecified, not intractable, without status migrainosus; F31.9 Bipolar disorder, unspecified; Z88.7 Allergy status to serum and vaccine; Z88.8 Allergy status to other drugs, medicaments and biological substances; X58.XXXA Exposure to other specified factors, initial encounter; Y93.89 Activity, other specified; Y92.89 Other specified places as the place of occurrence of the external cause; Y99.8 Other external cause status
CPT/HCPCS: 99283

== ENCOUNTER → 2018-09-26 | Outpatient (CLI) | payer OTHER ==
[~2018-09-26] MED LIST changes: +ARIP15TA36 PO; +CYCL-331 PO; +LAMO150T2 PO; +LISI-334 PO; +MELO7.5T5 PO
== END | disposition home or self-care (01) ==
LOC: PMG 10:43
PROVIDERS: ATTEND Physician Assistant
DX: R10.11 Right upper quadrant pain (principal); B96.81 Helicobacter pylori [H. pylori] as the cause of diseases classified elsewhere
CPT/HCPCS: 36415

== ENCOUNTER 2018-09-30 09:52 | Emergency (ER) | payer OTHER ==
[~2018-09-30] VITALS: Ht 170.2 cm; Wt 117.0 kg
[2018-09-30 09:52] VITALS: BP 163/93
[~2018-09-30 09:52] MED LIST changes: -ARIP15TA36 PO; -CYCL-331 PO; -LAMO150T2 PO; -LISI-334 PO
--- NOTE | 2018-09-30 10:13 | PHYS DOC ---
Past History Past Medical History: Bipolar, Hypertension, Migraines Past Surgical History: Appendectomy, Colectomy, Alcohol Use: None Drug Use: None Adult General Chief Complaint Chief Complaint: MECHANICAL FALL HPI HPI Patient is a 48 year old female who presents with complaining of a fall. Patient states she slipped on wet stairs and fall from to yesterday's with landing on her right ribs without head injury or loss of consciousness. Patient rated her pain 8/10 and denies focal neuro deficit. Patient complaining of mild shortness of breath. She hasn't had cervical spine fusion on September 08 and contacted her neurosurgeon who recommended to obtain a x ray of the cervical spine. Review of Systems Review of Systems Constitutional: Denies fever or chills [] Eyes: Denies change in visual acuity, redness, or eye pain [] HENT: Denies nasal congestion or sore throat [] Respiratory: Denies cough, reports shortness of breath [] Cardiovascular: No additional information not addressed in HPI [] GI: Denies abdominal pain, nausea, vomiting, bloody stools or diarrhea [] : Denies dysuria or hematuria [] Musculoskeletal: Denies back pain or joint pain [] Integument: Denies rash or skin lesions [] Neurologic: Denies headache, focal weakness or sensory changes [] Endocrine: Denies polyuria or polydipsia [] All other systems were reviewed and found to be within normal limits, except as documented in this note. Current Medications Current Medications Current Medications Medications (Trade) Dose Ordered Sig/[facility] Start Time Stop Time Status Last Admin Dose Admin Morphine Sulfate (Morphine 4mg Syringe) 4 mg 1X ONCE 09/30/18 10:15 09/30/18 10:16 UNV Allergies Allergies Allergies Coded Allergies Type Severity Reaction Last Updated Verified propoxyphene Allergy Intermediate Hives 09/07/16 Yes tetanus and diphtheria toxoids Allergy Intermediate Hives 09/07/16 Yes Physical Exam Physical Exam Constitutional: Well developed, well nourished, mild distress, non-toxic appearance. [] HENT: Normocephalic, atraumatic Eyes: PERRLA, EOMI, conjunctiva normal, no discharge. [] Neck: Normal range of motion, no midline tenderness, supple, no stridor. [] Cardiovascular:Heart rate regular rhythm, no murmur [] Lungs & Thorax: Bilateral breath sounds clear to auscultation, mild erythema and tenderness in right lower lateral chest. Skin: Warm, dry, no erythema, no rash. [] Back: No tenderness, no CVA tenderness. [] Extremities: No tenderness, no cyanosis, no clubbing, ROM intact, no edema. [] Neurologic: Alert and oriented X 3, normal motor function, normal sensory function, no focal deficits noted. [] Psychologic: Affect normal, judgement normal, mood normal. [] EKG EKG [] Radiology/Procedures Radiology/Procedures [address] [address] IMAGING REPORT Signed PATIENT: EWELINA CONNOLLY ACCOUNT: [id number] : 1970 LOCATION: ER AGE: 48 SEX: F EXAM STATUS: REG ER ORD. PHYSICIAN: IVON RAMACHANDRAN MD REASON: fall, history of surgery PROCEDURE: CERVICAL SPINE 2-3V CERVICAL SPINE 2-3V, RIBS RIGHT AND PA CHEST History: fell today, c-spine pain, cervical surg 09-08-2018, pt shielded. Comparison: None are available 4 view cervical spine Postsurgical changes with fusion of 3 C4 and C5 are identified. Degenerative spondylosis with loss of disc height and spurring at other levels. C7 and T1 are poorly seen. No evidence of loss of vertebral body height or definite fracture. Prevertebral soft tissues appear within normal limits. Alignment appears intact. IMPRESSION: Degenerative changes. No definite acute abnormality. PA chest with right RIBS 5 view Heart size not enlarged. No consolidating infiltrate, pneumothorax or effusion. No evidence of a displaced right rib fracture although an area of focal pain or tenderness is not known. Surgical clips in the right upper quadrant. IMPRESSION: No acute findings. Electronically signed by: Sylvester Cochran MD (09/30/2018 11:33 AM) [facility] DICTATED AND SIGNED BY: SYLVESTER COCHRAN MD DATE: 09/30/18 1139 CC: IVON RAMACHANDRAN MD; FREDERICK CHEEMA PA ~ [address] [address] IMAGING REPORT Signed PATIENT: EWELINA CONNOLLY ACCOUNT: [id number] : 1970 LOCATION: ER AGE: 48 SEX: F EXAM STATUS: REG ER ORD. PHYSICIAN: IVON RAMACHANDRAN MD REASON: fall, history of surgery PROCEDURE: RIBS RIGHT AND PA CHEST CERVICAL SPINE 2-3V, RIBS RIGHT AND PA CHEST History: fell today, c-spine pain, cervical surg 09-08-2018, pt shielded. Comparison: None are available 4 view cervical spine Postsurgical changes with fusion of 3 C4 and C5 are identified. Degenerative spondylosis with loss of disc height and spurring at other levels. C7 and T1 are poorly seen. No evidence of loss of vertebral body height or definite fracture. Prevertebral soft tissues appear within normal limits. Alignment appears intact. IMPRESSION: Degenerative changes. No definite acute abnormality. PA chest with right RIBS 5 view Heart size not enlarged. No consolidating infiltrate, pneumothorax or effusion. No evidence of a displaced right rib fracture although an area of focal pain or tenderness is not known. Surgical clips in the right upper quadrant. IMPRESSION: No acute findings. Electronically signed by: Sylvester Cochran MD (09/30/2018 11:33 AM) [facility] DICTATED AND SIGNED BY: SYLVESTER COCHRAN MD DATE: 09/30/18 1133 CC: IVON RAMACHANDRAN MD; FREDERICK CHEEMA ~ Course & Med Decision Making Course & Med Decision Making Pertinent Imaging studies reviewed. (See chart for details) discharge: I've spoken with the patient and/or caregivers. I've explained the patient's condition, diagnosis and treatment plan based on information available to me at this time. I've answered the patient's and/or caregivers questions and addressed any concerns. The patient and/or caregivers have a good understanding the patient's diagnosis, condition and treatment plan as can be expected at this point. Vital signs have been stabilized. The patient's condition is stable for discharge from the emergency department. The patient will pursue further outpatient evaluation with her primary care provider or other designated consulting physician as outlined in the discharge instructions. Patient and/or caregivers are agreeable to this plan of care and follow-up instructions have been explained in detail. The patient and/or caregivers have received these instructions in written format and expressed understanding of these discharge instructions. The patient and her caregivers are aware that if any significant change in condition or worsening of symptoms should prompt him to immediately return to this of the closest emergency department. If an emergent department is not readily available I would encourage him to call 911. Silvia Disclaimer Dragon Disclaimer This electronic medical record was generated, in whole or in part, using a voice recognition dictation system. Departure Departure: Impression: Primary Impression: Chest wall contusion Additional Impression: Fall down stairs Disposition: HOME, SELF-CARE (at 1205) Condition: IMPROVED Referrals: FREDERICK CHEEMA (PCP) Patient Instructions: Chest Contusion Additional Instructions: Continue oxycodone Drink plenty of liquids Follow-up with your primary care physician in 3-5 days Return to ER if not getting better Scripts Cyclobenzaprine Hcl (CYCLOBENZAPRINE HCL) 10 Mg Tablet 1 TAB PO TID for pain, #30 TAB Prov: IVON RAMACHANDRAN MD 09/30/18 Problem Qualifiers IVON RMAACHANDRAN MD Sep 30, 2018 10:13
[2018-09-30] MEDS ORDERED: MORPHINE SULFATE 4 MG/ML DISP.SYRIN. IM ONE (10:15)
[2018-09-30] MEDS ORDERED: oxyCODONE/APAP 7.5/325 1 TAB TABLET PO ONE (11:30)
--- NOTE | 2018-09-30 11:36 | RAD ---
CERVICAL SPINE 2-3V, RIBS RIGHT AND PA CHEST History: fell today, c-spine pain, cervical surg 09-08-2018, pt shielded. Comparison: None are available 4 view cervical spine Postsurgical changes with fusion of 3 C4 and C5 are identified. Degenerative spondylosis with loss of disc height and spurring at other levels. C7 and T1 are poorly seen. No evidence of loss of vertebral body height or definite fracture. Prevertebral soft tissues appear within normal limits. Alignment appears intact. IMPRESSION: Degenerative changes. No definite acute abnormality. PA chest with right RIBS 5 view Heart size not enlarged. No consolidating infiltrate, pneumothorax or effusion. No evidence of a displaced right rib fracture although an area of focal pain or tenderness is not known. Surgical clips in the right upper quadrant. IMPRESSION: No acute findings. Electronically signed by: Sylvester Cochran MD (09/30/2018 11:33 AM) [facility]
[2018-09-30] MEDS ORDERED: CYCL-331 PO (12:06)
[2018-10-01] MEDS ORDERED: ARIP15TA36 PO (10:58)
[2018-10-01] MEDS ORDERED: LAMO150T2 PO (10:58)
[2018-10-01] MEDS ORDERED: LISI-334 PO (11:06)
== END 2018-09-30 12:10 | disposition home or self-care (01) ==
LOC: ER 09:52
DX: S20.211A Contusion of right front wall of thorax, initial encounter (principal); M54.2 Cervicalgia; F31.9 Bipolar disorder, unspecified; I10 Essential (primary) hypertension; G43.909 Migraine, unspecified, not intractable, without status migrainosus; Z98.890 Other specified postprocedural states; Z88.7 Allergy status to serum and vaccine; Z88.8 Allergy status to other drugs, medicaments and biological substances; W10.8XXA Fall (on) (from) other stairs and steps, initial encounter; Y93.89 Activity, other specified; Y92.89 Other specified places as the place of occurrence of the external cause; Y99.8 Other external cause status
CPT/HCPCS: 71101; 72040; 96372; 99283; J2270

== ENCOUNTER 2018-09-30 19:15 | Inpatient (IN) | payer OTHER ==
[~2018-09-30] VITALS: Ht 170.2 cm; Wt 117.0 kg
[~2018-09-30 19:15] MED LIST changes: +CYCL-331 PO
--- NOTE | 2018-09-30 19:35 | ED.ADGEN ---
Past History Past Medical History: Bipolar, Hypertension, Migraines, Other Past Surgical History: Appendectomy, Colectomy, Alcohol Use: None Drug Use: None Adult General Chief Complaint Chief Complaint ".. I was coming home from [place].. my mom was admitted there... and I fell down the stairs.. .. I was here this morning .. but the pain is worse...".. " I am in so much pain.. the swelling worse.. ecchymosis worse.. 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 flank back and abd. pain. Patient seen earlier this date in the emergency department and initial x-rays of neck and chest showed no acute findings. Does have history of recent cervical fusion and hardware placement. Patient's area of initial contusion has shown marked increase in ecchymosis, swelling and erythema since this morning. Patient's father is with patient and states he has noticed the market increase in ecchymosis. Patient has no history of coagulopathy. Pt is not on any anticoagulants. No family history coagulopathy. It is also noted patient appeared to be have accelerated hypertension, but gave a history of noncompliance with hypertensive meds because of time spent at [facility] with her mother who was hospitalized. Use Tylenol and Percocet has not blunted her pain. Distal neurovascular appears intact and no significant changes noted. Patient surgical suture line in neck appears to be stable. Did review her films from earlier today and chest x-ray showed no acute cardiopulmonary findings. Did have clips from previous surgery in the abdomen. Cervical film showed no obvious displacement in cervical alignment. Hardware appeared to be stable. Review of Systems Review of Systems Constitutional: Denies fever or chills [] Eyes: Denies change in visual acuity, redness, or eye pain [] HENT: Denies nasal congestion or sore throat []does have some neck tenderness Respiratory: Denies cough or shortness of breath [] Cardiovascular: No additional information not addressed in HPI [] GI: Denies abdominal pain, nausea, vomiting, bloody stools or diarrhea [except the]complaints of increased pain and right flank and abdomen : Denies dysuria or hematuria [] Musculoskeletal: Denies back pain or joint pain [] Integument: Denies rash or skin lesions [] Neurologic: Denies headache, focal weakness or sensory changes [] Endocrine: Denies polyuria or polydipsia [] All other systems were reviewed and found to be within normal limits, except as documented in this note. Family History Family History Noncontributory to presentation Current Medications Current Medications Current Medications Medications (Trade) Dose Ordered Sig/Shakira Start Time Stop Time Status Last Admin Dose Admin Acetaminophen (Tylenol) 1,000 mg PRN QID PRN 10/01/18 00:00 Info (Do NOT chart on this entry -- for MONITORING) 1 each PRN DAILY PRN 09/30/18 21:45 10/02/18 21:44 Iohexol (Omnipaque 300 Mg/ml) 75 ml 1X ONCE 09/30/18 21:45 09/30/18 21:46 DC 09/30/18 22:34 75 ML Iohexol (Omnipaque 350 Mg/ml) 100 ml 1X ONCE 09/30/18 20:45 09/30/18 20:46 DC Lactated Ringer's 1,000 ml @ 1,000 mls/hr Q1H 09/30/18 20:45 09/30/18 21:45 DC 09/30/18 21:45 1,000 MLS/HR Lisinopril (Prinivil) 20 mg 1X ONCE 10/01/18 00:00 10/01/18 00:02 DC Metoprolol Succinate (Toprol Xl) 100 mg 1X ONCE 10/01/18 00:00 10/01/18 00:04 DC Morphine Sulfate (Morphine 10mg Syringe) 10 mg PRN Q6HRS PRN 10/01/18 00:00 Ondansetron HCl (Zofran) 4 mg PRN Q4HRS PRN 10/01/18 00:00 10/01/18 23:59 Orphenadrine Citrate (Norflex) 60 mg 1X ONCE 10/01/18 00:00 10/01/18 00:04 DC 09/30/18 23:50 60 MG Allergies Allergies Allergies Coded Allergies Type Severity Reaction Last Updated Verified propoxyphene Allergy Intermediate Hives 09/07/16 Yes tetanus and diphtheria toxoids Allergy Intermediate Hives 09/07/16 Yes Physical Exam Physical Exam Constitutional: briana acute distress, non-toxic appearance. [] HENT: Normocephalic, atraumatic, bilateral external ears normal, oropharynx moist, no oral exudates, nose normal. [] Eyes: PERRLA, EOMI, conjunctiva normal, no discharge. [] Neck: Normal range of motion, no tenderness, supple, no stridor. [] Anterior cervical neck surgical scar Cardiovascular:Heart rate regular rhythm, no murmur []PMI slightly to left Lungs & Thorax: Bilateral breath sounds equal apex on auscultation []does have a contusion to Rt chest wall flank. Abdomen: Bowel sounds normal, soft, Rt. flank and abd. tenderness, no masses, no pulsatile masses. [] Noted erythema, ecchymosis Rt. flank. Lower sacral ecchymosis. Old surgical scars. Skin: Warm, dry, no erythema, no rash. [] Ecchymosis as noted. Back: No tenderness, no CVA tenderness. [] Extremities: No tenderness, no cyanosis, no clubbing, ROM intact, no edema. [] Neurologic: Alert and oriented X 3, normal motor function, normal sensory function, no focal deficits noted. []Pt. ambulatory- but a guarded gait. Psychologic: Affect anxious, judgement normal, mood normal. [] Current Patient Data Vital Signs Vital Signs Date Time Temp Pulse Resp B/P (MAP) Pulse Ox O2 Delivery O2 Flow Rate FiO2 10/01/18 00:00 79 127/80 09/30/18 23:40 18 96 Room Air 09/30/18 19:55 98.1 Lab Results Laboratory Tests Test 09/30/18 19:50 09/30/18 20:06 09/30/18 21:35 Urine Collection Type Unknown Urine Color Yellow Urine Clarity Cloudy Urine pH 5.5 Urine Specific Pratt <=1.005 Urine Protein Neg (NEG-TRACE) Urine Glucose (UA) Neg mg/dL (NEG) Urine Ketones (Stick) Neg mg/dL (NEG) Urine Blood Neg (NEG) Urine Nitrite Neg (NEG) Urine Bilirubin Neg (NEG) Urine Urobilinogen Dipstick 0.2 mg/dL (0.2 mg/dL) Urine Leukocyte Esterase Neg (NEG) Urine RBC 0 /HPF (0-2) Urine WBC 0 /HPF (0-4) Urine Squamous Epithelial Cells Occ /LPF Urine Bacteria 0 /HPF (0-FEW) Urine Mucus Slight /LPF POC Urine HCG, Qualitative hcg negative (Negative) White Blood Count 6.6 x10^3/uL (4.0-11.0) Red Blood Count 4.33 x10^6/uL (3.50-5.40) Hemoglobin 13.4 g/dL (12.0-15.5) Hematocrit 39.7 % (36.0-47.0) Mean Corpuscular Volume 92 fL (79-100) Mean Corpuscular Hemoglobin 31 pg (25-35) Mean Corpuscular Hemoglobin Concent 34 g/dL (31-37) Red Cell Distribution Width 14.4 % (11.5-14.5) Platelet Count 314 x10^3/uL (140-400) Neutrophils (%) (Auto) 55 % (31-73) Lymphocytes (%) (Auto) 35 % (24-48) Monocytes (%) (Auto) 8 % (0-9) Eosinophils (%) (Auto) 2 % (0-3) Basophils (%) (Auto) 1 % (0-3) Neutrophils # (Auto) 3.6 x10^3uL (1.8-7.7) Lymphocytes # (Auto) 2.3 x10^3/uL (1.0-4.8) Monocytes # (Auto) 0.5 x10^3/uL (0.0-1.1) Eosinophils # (Auto) 0.1 x10^3/uL (0.0-0.7) Basophils # (Auto) 0.1 x10^3/uL (0.0-0.2) Prothrombin Time 9.7 SEC (9.4-11.4) Prothrombin Time INR 1.0 (0.9-1.1) PTT 27 SEC (23-33) Sodium Level 144 mmol/L (136-145) Potassium Level 3.9 mmol/L (3.5-5.1) Chloride Level 107 mmol/L (98-107) Carbon Dioxide Level 26 mmol/L (21-32) Anion Gap 11 (6-14) Blood Urea Nitrogen 12 mg/dL (7-20) Creatinine 0.8 mg/dL (0.6-1.0) Estimated GFR (Cockcroft-Gault) 76.9 Glucose Level 96 mg/dL (70-99) Calcium Level 8.6 mg/dL (8.5-10.1) Total Bilirubin 0.2 mg/dL (0.2-1.0) Direct Bilirubin 0.1 mg/dL (0.0-0.2) Aspartate Amino Transferase (AST) 22 U/L (15-37) Alanine Aminotransferase (ALT) 34 U/L (14-59) Alkaline Phosphatase 132 U/L (46-116) H Creatine Kinase 148 U/L (26-192) Troponin I Quantitative < 0.017 ng/mL (0-0.055) XT-Zie-H-Type Natriuretic Peptide 30 pg/mL (0-124) Total Protein 6.7 g/dL (6.4-8.2) Albumin 3.4 g/dL (3.4-5.0) EKG EKG My interpretation of EKG shows a sinus rhythm at 82 bpm. Mild leftward axis. No findings acute STEMI with contralateral changes.[] Radiology/Procedures Radiology/Procedures CT of chest and abdomen show no obvious fracture or dislocation. No obvious liver or kidney contusion. No acute surgical pathology noted. See formal report when available. Soft tissue of right flank does appear to be congested and have increased edema. Course & Med Decision Making Course & Med Decision Making Pertinent Labs and Imaging studies reviewed. (See chart for details) Discussed presentation, testing and tx. plan with Dr. Gayle. Will admit for pain management and further evaluation. [] Final Impression Final Impression 1. Fall[] 2. Hematoma Rt. Flank 3. Muscle Strain/Contusion 4. Hx. Recent cervical fusion and hardware fixation 5. Accelerated HTN- Not taken meds today Dragon Disclaimer Dragon Disclaimer This electronic medical record was generated, in whole or in part, using a voice recognition dictation system. Dragon Disclaimer This chart was dictated in whole or in part using Voice Recognition software in a busy, high-work load, and often noisy Emergency Department environment. It may contain unintended and wholly unrecognized errors or omissions. Dragon Disclaimer This chart was dictated in whole or in part using Voice Recognition software in a busy, high-work load, and often noisy Emergency Department environment. It may contain unintended and wholly unrecognized errors or omissions. Discharge Summary Visit Information Final Diagnosis Problems Medical Problems: (1) Fall Status: Acute Brief Hospital Course Allergies Allergies Coded Allergies Type Severity Reaction Last Updated Verified propoxyphene Allergy Intermediate Hives 2/14/17 Yes tetanus and diphtheria toxoids Allergy Intermediate Hives 09/07/16 Yes Vital Signs Vital Signs Date Time Temp Pulse Resp B/P (MAP) Pulse Ox O2 Delivery O2 Flow Rate FiO2 10/01/18 00:00 79 127/80 09/30/18 23:40 18 96 Room Air 09/30/18 19:55 98.1 Lab Results Laboratory Tests Test 09/30/18 19:50 09/30/18 20:06 09/30/18 21:35 Urine Collection Type Unknown Urine Color Yellow Urine Clarity Cloudy Urine pH 5.5 Urine Specific Pratt <=1.005 Urine Protein Neg (NEG-TRACE) Urine Glucose (UA) Neg mg/dL (NEG) Urine Ketones (Stick) Neg mg/dL (NEG) Urine Blood Neg (NEG) Urine Nitrite Neg (NEG) Urine Bilirubin Neg (NEG) Urine Urobilinogen Dipstick 0.2 mg/dL (0.2 mg/dL) Urine Leukocyte Esterase Neg (NEG) Urine RBC 0 /HPF (0-2) Urine WBC 0 /HPF (0-4) Urine Squamous Epithelial Cells Occ /LPF Urine Bacteria 0 /HPF (0-FEW) Urine Mucus Slight /LPF Bedside Urine HCG, Qualitative hcg negative (Negative) White Blood Count 6.6 x10^3/uL (4.0-11.0) Red Blood Count 4.33 x10^6/uL (3.50-5.40) Hemoglobin 13.4 g/dL (12.0-15.5) Hematocrit 39.7 % (36.0-47.0) Mean Corpuscular Volume 92 fL (79-100) Mean Corpuscular Hemoglobin 31 pg (25-35) Mean Corpuscular Hemoglobin Concent 34 g/dL (31-37) Red Cell Distribution Width 14.4 % (11.5-14.5) Platelet Count 314 x10^3/uL (140-400) Neutrophils (%) (Auto) 55 % (31-73) Lymphocytes (%) (Auto) 35 % (24-48) Monocytes (%) (Auto) 8 % (0-9) Eosinophils (%) (Auto) 2 % (0-3) Basophils (%) (Auto) 1 % (0-3) Neutrophils # (Auto) 3.6 x10^3uL (1.8-7.7) Lymphocytes # (Auto) 2.3 x10^3/uL (1.0-4.8) Monocytes # (Auto) 0.5 x10^3/uL (0.0-1.1) Eosinophils # (Auto) 0.1 x10^3/uL (0.0-0.7) Basophils # (Auto) 0.1 x10^3/uL (0.0-0.2) Prothrombin Time 9.7 SEC (9.4-11.4) Prothromb Time International Ratio 1.0 (0.9-1.1) Activated Partial Thromboplast Time 27 SEC (23-33) Sodium Level 144 mmol/L (136-145) Potassium Level 3.9 mmol/L (3.5-5.1) Chloride Level 107 mmol/L (98-107) Carbon Dioxide Level 26 mmol/L (21-32) Anion Gap 11 (6-14) Blood Urea Nitrogen 12 mg/dL (7-20) Creatinine 0.8 mg/dL (0.6-1.0) Estimated GFR (Cockcroft-Gault) 76.9 Glucose Level 96 mg/dL (70-99) Calcium Level 8.6 mg/dL (8.5-10.1) Total Bilirubin 0.2 mg/dL (0.2-1.0) Direct Bilirubin 0.1 mg/dL (0.0-0.2) Aspartate Amino Transf (AST/SGOT) 22 U/L (15-37) Alanine Aminotransferase (ALT/SGPT) 34 U/L (14-59) Alkaline Phosphatase 132 U/L (46-116) Creatine Kinase 148 U/L (26-192) Troponin I Quantitative < 0.017 ng/mL (0-0.055) FZ-Xbl-Q-Type Natriuretic Peptide 30 pg/mL (0-124) Total Protein 6.7 g/dL (6.4-8.2) Albumin 3.4 g/dL (3.4-5.0) Brief Hospital Course 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 Admitted to Dr. Gayle for pain management and further evaluation. Discharge Information Condition at Discharge: Improved, Stable Dischare Medications Current Medications Lactated Ringer's 1,000 ml @ 1,000 mls/hr Q1H IV Last administered on at 21:45; Admin Dose 1,000 MLS/HR; Start 09/30/18 at 20:45; Stop 09/30/18 at 21: 45; Status DC Morphine Sulfate (Morphine 10mg Syringe) 10 mg 1X ONCE IV Last administered on 09/30/18at 21:46; Admin Dose 10 MG; Start 09/30/18 at 20:45; Stop 09/30/18 at 20: 46; Status DC Ondansetron HCl (Zofran) 8 mg 1X ONCE IV Last administered on 09/30/18at 21:46; Admin Dose 8 MG; Start 09/30/18 at 20:45; Stop 09/30/18 at 20:46; Status DC Iohexol (Omnipaque 350 Mg/ml) 100 ml 1X ONCE IV ; Start 09/30/18 at 20:45; Stop 09/30/18 at 20:46; Status DC Info (Do NOT chart on this entry -- for MONITORING) 1 each PRN DAILY PRN MC SEE COMMENTS; Start 09/30/18 at 20:45; Stop 10/02/18 at 20:44 Iohexol (Omnipaque 300 Mg/ml) 75 ml 1X ONCE IV Last administered on 09/30/18at 22:34; Admin Dose 75 ML; Start 09/30/18 at 21:45; Stop 09/30/18 at 21:46; Status DC Info (Do NOT chart on this entry -- for MONITORING) 1 each PRN DAILY PRN MC SEE COMMENTS; Start 09/30/18 at 21:45; Stop 10/02/18 at 21:44 Ondansetron HCl (Zofran) 8 mg 1X ONCE IV Last administered on 09/30/18at 23:02; Admin Dose 8 MG; Start 09/30/18 at 23:00; Stop 09/30/18 at 23:16; Status DC Orphenadrine Citrate (Norflex) 60 mg 1X ONCE IV ; Start 09/30/18 at 23:30; Stop 10/01/18 at 00:04; Status DC Orphenadrine Citrate (Norflex) 60 mg 1X ONCE IM Last administered on 09/30/18at 23:50; Admin Dose 60 MG; Start 10/01/18 at 00:00; Stop 10/01/18 at 00:04; Status DC Ondansetron HCl (Zofran) 4 mg PRN Q4HRS PRN IV NAUSEA/VOMITING; Start 10/01/18 at 00:00; Stop 10/01/18 at 23:59 Morphine Sulfate (Morphine 10mg Syringe) 10 mg PRN Q6HRS PRN SQ Marked pain; Start 10/01/18 at 00:00 Acetaminophen (Tylenol) 1,000 mg PRN QID PRN PO pain; Start 10/01/18 at 00:00 Metoprolol Succinate (Toprol Xl) 100 mg 1X ONCE PO ; Start 10/01/18 at 00:00; Stop 10/01/18 at 00:04; Status DC Lisinopril (Prinivil) 20 mg 1X ONCE PO ; Start 10/01/18 at 00:00; Stop at 00:02; Status DC Active Scripts Active Cyclobenzaprine Hcl 10 Mg Tablet 1 Tab PO TID Mobic (Meloxicam) 7.5 Mg Tablet 1 Tab PO DAILY Zofran Odt (Ondansetron) 4 Mg Tab.rapdis 1 Tab SL Q8HRS PRN [place] 5-325 Tablet (Hydrocodone Bit/Acetaminophen) 1 Each Tablet 1 Tab PO PRN Q6HRS PRN Medrol (Methylprednisolone) 4 Mg Tab.ds.pk 1 Pkg PO UD [place] 5-325 Tablet (Hydrocodone Bit/Acetaminophen) 1 Each Tablet 1-2 Tab PO Q4- 6HRS Compazine (Prochlorperazine Maleate) 10 Mg Tablet 10 Mg PO Q6-8HRS PRN Lisinopril 10 Mg Tablet 1 Tab PO DAILY 30 Days Reported Clonazepam 0.5 Mg Tablet 0.5 Mg PO PRN DAILY PRN NOT GIVEN THIS ADMISSION NEXT DOSE DUE: DATE:TODAY TIME:IF AND WHEN NEEDED Lamotrigine 100 Mg Tablet 100 Mg PO QHS NOT GIVEN THIS ADMISSION NEXT DOSE DUE: DATE:TODAY TIME:BEDTIME Verapamil Sr (Verapamil HCl) 120 Mg Cap24h.pel 120 Mg PO QHS NOT GIVEN THIS ADMISSION NEXT DOSE DUE: DATE:TODAY TIME:BEDTIME Abilify (Aripiprazole) 10 Mg Tablet 10 Mg PO QHS NOT GIVEN THIS ADMISSION NEXT DOSE DUE: DATE:TODAY TIME:BEDTIME Nortriptyline Hcl 50 Mg Capsule 100 Mg PO QHS NOT GIVEN THIS ADMISSION NEXT DOSE DUE: DATE:TODAY TIME:BEDTIME Topamax (Topiramate) 50 Mg Tablet 50 Mg PO BID last dose this morning next dose tonight Toprol Xl (Metoprolol Succinate) 100 Mg Tab.er.24h 100 Mg PO DAILY last dose this morning next dose tomorrow Cymbalta (Duloxetine Hcl) 60 Mg Capsule.dr 60 Mg PO BID last dose this morning next dose tonight Klonopin (Clonazepam) 0.5 Mg Tablet 0.5 Mg PO BID last dose this morning next dose due tonight Discharge Summary Visit Information Final Diagnosis Problems Medical Problems: (1) Fall Status: Acute Brief Hospital Course Allergies Allergies Coded Allergies Type Severity Reaction Last Updated Verified propoxyphene Allergy Intermediate Hives 09/07/16 Yes tetanus and diphtheria toxoids Allergy Intermediate Hives 09/07/16 Yes Vital Signs Vital Signs Date Time Temp Pulse Resp B/P (MAP) Pulse Ox O2 Delivery O2 Flow Rate FiO2 10/01/18 00:00 79 127/80 09/30/18 23:40 18 96 Room Air 09/30/18 19:55 98.1 Lab Results Laboratory Tests Test 09/30/18 19:50 09/30/18 20:06 09/30/18 21:35 Urine Collection Type Unknown Urine Color Yellow Urine Clarity Cloudy Urine pH 5.5 Urine Specific Pratt <=1.005 Urine Protein Neg (NEG-TRACE) Urine Glucose (UA) Neg mg/dL (NEG) Urine Ketones (Stick) Neg mg/dL (NEG) Urine Blood Neg (NEG) Urine Nitrite Neg (NEG) Urine Bilirubin Neg (NEG) Urine Urobilinogen Dipstick 0.2 mg/dL (0.2 mg/dL) Urine Leukocyte Esterase Neg (NEG) Urine RBC 0 /HPF (0-2) Urine WBC 0 /HPF (0-4) Urine Squamous Epithelial Cells Occ /LPF Urine Bacteria 0 /HPF (0-FEW) Urine Mucus Slight /LPF Bedside Urine HCG, Qualitative hcg negative (Negative) White Blood Count 6.6 x10^3/uL (4.0-11.0) Red Blood Count 4.33 x10^6/uL (3.50-5.40) Hemoglobin 13.4 g/dL (12.0-15.5) Hematocrit 39.7 % (36.0-47.0) Mean Corpuscular Volume 92 fL (79-100) Mean Corpuscular Hemoglobin 31 pg (25-35) Mean Corpuscular Hemoglobin Concent 34 g/dL (31-37) Red Cell Distribution Width 14.4 % (11.5-14.5) Platelet Count 314 x10^3/uL (140-400) Neutrophils (%) (Auto) 55 % (31-73) Lymphocytes (%) (Auto) 35 % (24-48) Monocytes (%) (Auto) 8 % (0-9) Eosinophils (%) (Auto) 2 % (0-3) Basophils (%) (Auto) 1 % (0-3) Neutrophils # (Auto) 3.6 x10^3uL (1.8-7.7) Lymphocytes # (Auto) 2.3 x10^3/uL (1.0-4.8) Monocytes # (Auto) 0.5 x10^3/uL (0.0-1.1) Eosinophils # (Auto) 0.1 x10^3/uL (0.0-0.7) Basophils # (Auto) 0.1 x10^3/uL (0.0-0.2) Prothrombin Time 9.7 SEC (9.4-11.4) Prothromb Time International Ratio 1.0 (0.9-1.1) Activated Partial Thromboplast Time 27 SEC (23-33) Sodium Level 144 mmol/L (136-145) Potassium Level 3.9 mmol/L (3.5-5.1) Chloride Level 107 mmol/L (98-107) Carbon Dioxide Level 26 mmol/L (21-32) Anion Gap 11 (6-14) Blood Urea Nitrogen 12 mg/dL (7-20) Creatinine 0.8 mg/dL (0.6-1.0) Estimated GFR (Cockcroft-Gault) 76.9 Glucose Level 96 mg/dL (70-99) Calcium Level 8.6 mg/dL (8.5-10.1) Total Bilirubin 0.2 mg/dL (0.2-1.0) Direct Bilirubin 0.1 mg/dL (0.0-0.2) Aspartate Amino Transf (AST/SGOT) 22 U/L (15-37) Alanine Aminotransferase (ALT/SGPT) 34 U/L (14-59) Alkaline Phosphatase 132 U/L (46-116) Creatine Kinase 148 U/L (26-192) Troponin I Quantitative < 0.017 ng/mL (0-0.055) LP-Lba-E-Type Natriuretic Peptide 30 pg/mL (0-124) Total Protein 6.7 g/dL (6.4-8.2) Albumin 3.4 g/dL (3.4-5.0) Brief Hospital Course Ms. Hagen is a 48 old [sex] who presented with [ ] Discharge Information Dischare Medications Current Medications Lactated Ringer's 1,000 ml @ 1,000 mls/hr Q1H IV Last administered on at 21:45; Admin Dose 1,000 MLS/HR; Start 09/30/18 at 20:45; Stop 09/30/18 at 21: 45; Status DC Morphine Sulfate (Morphine 10mg Syringe) 10 mg 1X ONCE IV Last administered on 09/30/18at 21:46; Admin Dose 10 MG; Start 09/30/18 at 20:45; Stop 09/30/18 at 20: 46; Status DC Ondansetron HCl (Zofran) 8 mg 1X ONCE IV Last administered on 09/30/18at 21:46; Admin Dose 8 MG; Start 09/30/18 at 20:45; Stop 09/30/18 at 20:46; Status DC Iohexol (Omnipaque 350 Mg/ml) 100 ml 1X ONCE IV ; Start 09/30/18 at 20:45; Stop 09/30/18 at 20:46; Status DC Info (Do NOT chart on this entry -- for MONITORING) 1 each PRN DAILY PRN MC SEE COMMENTS; Start 09/30/18 at 20:45; Stop 10/02/18 at 20:44 Iohexol (Omnipaque 300 Mg/ml) 75 ml 1X ONCE IV Last administered on 09/30/18at 22:34; Admin Dose 75 ML; Start 09/30/18 at 21:45; Stop 09/30/18 at 21:46; Status DC Info (Do NOT chart on this entry -- for MONITORING) 1 each PRN DAILY PRN MC SEE COMMENTS; Start 09/30/18 at 21:45; Stop 10/02/18 at 21:44 Ondansetron HCl (Zofran) 8 mg 1X ONCE IV Last administered on 09/30/18at 23:02; Admin Dose 8 MG; Start 09/30/18 at 23:00; Stop 09/30/18 at 23:16; Status DC Orphenadrine Citrate (Norflex) 60 mg 1X ONCE IV ; Start 09/30/18 at 23:30; Stop 10/01/18 at 00:04; Status DC Orphenadrine Citrate (Norflex) 60 mg 1X ONCE IM Last administered on 09/30/18at 23:50; Admin Dose 60 MG; Start 10/01/18 at 00:00; Stop 10/01/18 at 00:04; Status DC Ondansetron HCl (Zofran) 4 mg PRN Q4HRS PRN IV NAUSEA/VOMITING; Start 10/01/18 at 00:00; Stop 10/01/18 at 23:59 Morphine Sulfate (Morphine 10mg Syringe) 10 mg PRN Q6HRS PRN SQ Marked pain; Start 10/01/18 at 00:00 Acetaminophen (Tylenol) 1,000 mg PRN QID PRN PO pain; Start 10/01/18 at 00:00 Metoprolol Succinate (Toprol Xl) 100 mg 1X ONCE PO ; Start 10/01/18 at 00:00; Stop 10/01/18 at 00:04; Status DC Lisinopril (Prinivil) 20 mg 1X ONCE PO ; Start 10/01/18 at 00:00; Stop at 00:02; Status DC Active Scripts Active Cyclobenzaprine Hcl 10 Mg Tablet 1 Tab PO TID Mobic (Meloxicam) 7.5 Mg Tablet 1 Tab PO DAILY Zofran Odt (Ondansetron) 4 Mg Tab.rapdis 1 Tab SL Q8HRS PRN [place] 5-325 Tablet (Hydrocodone Bit/Acetaminophen) 1 Each Tablet 1 Tab PO PRN Q6HRS PRN Medrol (Methylprednisolone) 4 Mg Tab.ds.pk 1 Pkg PO UD [place] 5-325 Tablet (Hydrocodone Bit/Acetaminophen) 1 Each Tablet 1-2 Tab PO Q4- 6HRS Compazine (Prochlorperazine Maleate) 10 Mg Tablet 10 Mg PO Q6-8HRS PRN Lisinopril 10 Mg Tablet 1 Tab PO DAILY 30 Days Reported Clonazepam 0.5 Mg Tablet 0.5 Mg PO PRN DAILY PRN NOT GIVEN THIS ADMISSION NEXT DOSE DUE: DATE:TODAY TIME:IF AND WHEN NEEDED Lamotrigine 100 Mg Tablet 100 Mg PO QHS NOT GIVEN THIS ADMISSION NEXT DOSE DUE: DATE:TODAY TIME:BEDTIME Verapamil Sr (Verapamil HCl) 120 Mg Cap24h.pel 120 Mg PO QHS NOT GIVEN THIS ADMISSION NEXT DOSE DUE: DATE:TODAY TIME:BEDTIME Abilify (Aripiprazole) 10 Mg Tablet 10 Mg PO QHS NOT GIVEN THIS ADMISSION NEXT DOSE DUE: DATE:TODAY TIME:BEDTIME Nortriptyline Hcl 50 Mg Capsule 100 Mg PO QHS NOT GIVEN THIS ADMISSION NEXT DOSE DUE: DATE:TODAY TIME:BEDTIME Topamax (Topiramate) 50 Mg Tablet 50 Mg PO BID last dose this morning next dose kamari Toprol Xl (Metoprolol Succinate) 100 Mg Tab.er.24h 100 Mg PO DAILY last dose this morning next dose tomorrow Cymbalta (Duloxetine Hcl) 60 Mg Capsule.dr 60 Mg PO BID last dose this morning next dose kamari Klonopin (Clonazepam) 0.5 Mg Tablet 0.5 Mg PO BID last dose this morning next dose due MAGI Biggs MD Sep 30, 2018 19:35
[2018-09-30 20:30] LABS: BILIRUBIN,URINE NEG (NEG); CLARITY,URINE CLOUDY; COLOR,URINE YELLOW; GLUCOSE,URINE NEG (NEG); NITRITE,URINE NEG (NEG); RBC,URINE 0 /HPF (0-2); UROBILINOGEN,URINE 0.2 mg/dL (0.2 mg/dL)
[2018-09-30 20:36] LABS: BACTERIA,URINE 0 /HPF (0-FEW); WBC,URINE 0 /HPF (0-4)
[2018-09-30 20:37] LABS: SQUAMOUS EPITHELIAL CELL,UR OCC /LPF
[2018-09-30] MEDS ORDERED: MORPHINE SULFATE 10 MG/ML SYRINGE. IV ONE (20:45)
[2018-09-30] MEDS ORDERED: IV RINGERS SOLUTION,LACTATED 1,000 ML IV SCH (20:45)
[2018-09-30] MEDS ORDERED: CONTRAST GIVEN MC PRN ×2 (20:45→21:45)
[2018-09-30] MEDS ORDERED: ONDANSETRON PF 4 MG/2 ML VIAL. IV ONE ×2 (20:45→23:00)
[2018-09-30] MEDS ORDERED: IOHEXOL 350 MG/ML 100 ML VIAL. IV ONE (20:45)
[2018-09-30] MEDS ORDERED: IOHEXOL 300 MG/ML 75 ML VIAL. IV ONE (21:45)
[2018-09-30 21:58] LABS: BASO # 0.1 x10^3/uL (0.0-0.2); BASO % 1 % (0-3); EOS # 0.1 x10^3/uL (0.0-0.7); EOS % 2 % (0-3); HEMATOCRIT 39.7 % (36.0-47.0); HEMOGLOBIN 13.4 g/dL (12.0-15.5); LYMPH # 2.3 x10^3/uL (1.0-4.8); LYMPH % 35 % (24-48); MEAN CORPUSCULAR HEMOGLOBIN 31 pg (25-35); MEAN CORPUSCULAR HGB CONC 34 g/dL (31-37); MEAN CORPUSCULAR VOLUME 92 fL (79-100); MONO # 0.5 x10^3/uL (0.0-1.1); MONO % 8 % (0-9); NEUT # 3.6 x10^3uL (1.8-7.7); NEUT % 55 % (31-73); PLATELET COUNT 314 x10^3/uL (140-400); RED BLOOD COUNT 4.33 x10^6/uL (3.50-5.40); RED CELL DISTRIBUTION WIDTH 14.4 % (11.5-14.5); WHITE BLOOD COUNT 6.6 x10^3/uL (4.0-11.0)
[2018-09-30 22:24] LABS: ALBUMIN 3.4 g/dL (3.4-5.0); CALCIUM 8.6 mg/dL (8.5-10.1); CREATININE 0.8 mg/dL (0.6-1.0); DIRECT BILIRUBIN 0.1 mg/dL (0.0-0.2); GFR 76.9; POTASSIUM 3.9 mmol/L (3.5-5.1); TOTAL BILIRUBIN 0.2 mg/dL (0.2-1.0); TOTAL PROTEIN 6.7 g/dL (6.4-8.2)
--- NOTE | 2018-09-30 23:17 | RAD ---
PQRS Compliance statement: One or more of the following individualized dose reduction techniques were utilized for this examination: 1. Automated exposure control. 2. Adjustment of the mA and/or kV according to patient size. 3. Use of iterative reconstruction technique. Indication:Omni 300, 75ml IV. Fall on ice today. Increasing chest pain, right flank hematoma, hepatic tenderness. Hx c-spine sx TECHNIQUE: CT chest, abdomen and pelviswith IV contrast with multiplanar reformats. COMPARISON: CT abdomen pelvis from 04/21/2018 FINDINGS: Heart is normal in size. No pericardial or pleural effusion. Clear neck base. No enlarged axillary, mediastinal or hilar adenopathy. No mediastinal hematoma. No pneumothorax. No focal consolidation. No suspicious bony lesion. No acute fractures. Liver, spleen, pancreas, adrenals and kidneys within normal limits. Status post cholecystectomy. No enlarged retroperitoneal or pelvic adenopathy. No free pelvic fluid. No pneumoperitoneum. No bowel obstruction. Uterus is present. 4.0 x 2.4 cm low attenuating lesion is seen in the right ovary most likely simple cyst. Urinary bladder is then normal limits. No acute fractures. IMPRESSION: No acute findings. Electronically signed by: Ambrocio Gunn DO (09/30/2018 11:14 PM) [id number]
[2018-09-30] MEDS ORDERED: ORPHENADRINE CITRATE 60 MG/2 ML VIAL. IV ONE (23:30)
[2018-10-01] MEDS ORDERED: LISINOPRIL 10 MG TABLET PO ONE
[2018-10-01] MEDS ORDERED: METOPROLOL SUCC 24HR ER 25 MG TAB.ER.24H. PO ONE
[2018-10-01] MEDS ORDERED: ACETAMINOPHEN 500 MG TABLET PO PRN
[2018-10-01] MEDS ORDERED: ORPHENADRINE CITRATE 60 MG/2 ML VIAL. IM ONE
[2018-10-01] MEDS ORDERED: MORPHINE SULFATE 10 MG/ML SYRINGE. SQ PRN
[2018-10-01 01:02] VITALS: BP 143/93
[2018-10-01] MEDS: ONDANSETRON PF 4 MG/2 ML VIAL. IV PRN ×3 (04:36→10:52)
[2018-10-01 04:45] VITALS: BP 139/87
[2018-10-01 06:50] LABS: BASO % 0 % (0-3); EOS # 0.1 x10^3/uL (0.0-0.7); EOS % 2 % (0-3); HEMATOCRIT 36.8 % (36.0-47.0); HEMOGLOBIN 12.3 g/dL (12.0-15.5); LYMPH # 1.6 x10^3/uL (1.0-4.8); LYMPH % 30 % (24-48); MEAN CORPUSCULAR HEMOGLOBIN 31 pg (25-35); MEAN CORPUSCULAR HGB CONC 34 g/dL (31-37); MEAN CORPUSCULAR VOLUME 92 fL (79-100); MONO # 0.4 x10^3/uL (0.0-1.1); MONO % 7 % (0-9); NEUT # 3.4 x10^3uL (1.8-7.7); NEUT % 61 % (31-73); PLATELET COUNT 246 x10^3/uL (140-400); RED BLOOD COUNT 4.01 x10^6/uL (3.50-5.40); RED CELL DISTRIBUTION WIDTH 13.9 % (11.5-14.5); WHITE BLOOD COUNT 5.5 x10^3/uL (4.0-11.0)
[2018-10-01 07:03] LABS: CALCIUM 8.7 mg/dL (8.5-10.1); CREATININE 0.8 mg/dL (0.6-1.0); GFR 76.9; POTASSIUM 3.9 mmol/L (3.5-5.1)
[2018-10-01] MEDS ORDERED: MORPHINE SULFATE 4 MG/ML DISP.SYRIN. IV PRN (08:15)
[2018-10-01] MEDS ORDERED: IV RINGERS SOLUTION,LACTATED 1,000 ML IV SCH (09:00)
[2018-10-01] MEDS ORDERED: HYDROmorphone PF 2 MG/ML VIAL IV PRN (10:45)
[2018-10-01] MEDS ORDERED: ONDANSETRON PF 4 MG/2 ML VIAL. IV PRN (10:45)
[2018-10-01] MEDS ORDERED: ARIP15TA36 PO (10:58)
[2018-10-01] MEDS ORDERED: LAMO150T2 PO (10:58)
[2018-10-01 11:02] VITALS: BP 156/104
[2018-10-01] MEDS ORDERED: LISI-334 PO (11:06)
[2018-10-01] MEDS ORDERED: ONDANSETRON ODT 4 MG TAB.RAPDIS PO PRN (13:15)
[2018-10-01] MEDS ORDERED: clonazePAM 0.5 MG TABLET PO PRN (13:15)
[2018-10-01] MEDS ORDERED: LISINOPRIL 20 MG TABLET PO SCH (13:45)
[2018-10-01] MEDS ORDERED: VERAPAMIL SR 120 MG TABLET.ER. PO SCH ×2 (13:45→21:00)
[2018-10-01] MEDS ORDERED: METOPROLOL SUCC 24HR ER 50 MG TAB.ER.24H. PO SCH (13:45)
[2018-10-01 13:47] VITALS: BP 156/104
[2018-10-01] MEDS ORDERED: CYCLOBENZAPRINE 10 MG TABLET. PO SCH (14:00)
--- NOTE | 2018-10-01 14:06 | SSS ---
ADMIT DATE: 10/01/2018 HISTORY OF PRESENT ILLNESS: The patient is a 48-year-old female patient, who apparently fell down the stairs and she developed severe pain and noted that there is a new swelling around her neck and right shoulder. Her right upper extremity is cold and she has also headache and nausea and vomiting. She was extensively investigated in the Emergency Room, has had large ecchymosis in the right flank area and she underwent CT scan of the chest, abdomen and pelvis, which basically showed that there is no abnormality report in the chest, abdomen and pelvis. She has had CT scan as her cervical spine x-ray, which basically showed postsurgical changes with fusion of C3-C4, C4-C5 degenerative spondylosis with loss of disk height and spurring at other levels C7 and T1 are poorly seen. No evidence of loss of vertebral body height or definite fracture. Prevertebral soft tissue appears within normal limits. Alignment appears intact. She had also right-sided rib views, which showed the heart size not enlarged. No consolidating infiltrate, pneumothorax or effusion. No evidence of displaced right rib fracture, although an area of focal pain or tenderness not known. The patient continued to be extremely anxious, worried about the swelling and despite treatment and pain medication and reassurance she continued to be very anxious and therefore a decision was made to transfer her to [facility] and to consult Dr. Bella to evaluate her further and see if an MRI need to be done as I do not see any association between her surgery and the cold hands. Her radial pulses are easily palpable, although her right hand seems to be colder than the left. I do not know whether she has some form of Raynaud's disease. PAST MEDICAL HISTORY: Significant for migraine headache, fatty liver, hypertension, acne. 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 PAST SURGICAL HISTORY: Significant for appendectomy, 3 C-sections, endometrial ablation, sphincterotomy of sphincter of Oddi. ALLERGIES: She is allergic to TYLENOL, PROPOXYPHENE, TETANUS and DIPHTHERIA TOXOID. MEDICATIONS: As per MRAD. FAMILY HISTORY: Unremarkable. SOCIAL HISTORY: She apparently , has children. 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 She does not smoke, drink alcohol or use any recreational drugs. REVIEW OF SYSTEMS: As per history of present illness. When I examined her this morning, she was sitting at the edge of the bed, complaining of severe pain in her neck and headache as well as nausea and vomiting. However, there was no pallor, jaundice; however, she denied any tingling or numbness. Denied any incontinence of bowel or bladder, has been up and about and able to walk and main complaint of headache, nausea and also cold feeling in the right upper extremity compared to the left upper extremity. PHYSICAL EXAMINATION: GENERAL: When I examined her, there was no pallor, jaundice, cyanosis, or thyromegaly. No jugular venous distension. No limb edema. VITAL SIGNS: Her heart rate was 80, blood pressure 156/104, temperature was 98.3, respiratory rate 20, and oxygen saturation was 100% on room air. HEAD, EYES, EARS, NOSE, AND THROAT: Showed normocephalic, atraumatic. NECK: Supple. HEART: Showed normal first and second heart sounds. No gallop, rub or murmur. CHEST: Clear to auscultation. No crepitation or rhonchi. ABDOMEN: Distended, soft, nontender. NEUROLOGIC: She is awake, alert, responding appropriately. All cranial nerves intact. EXTREMITIES: She moves extremities without difficulty. Examination of the skin showed no obvious bruises. The right upper extremity radial pulsation is AV valve able, although the hand feels cold. She has bruises in the right flank area, although the CT scan of the abdomen and pelvis is unremarkable. LABORATORY DATA: Showed that her white cell count was 5500, hemoglobin 12, hematocrit 36, MCV 92, and platelet count of 246,000. Her chemistry showed a serum sodium 141, potassium 3.9, chloride 106, bicarbonate 27, anion gap of 8, BUN 10, creatinine 0.8, estimated GFR was 77 mL per minute. Her glucose was 103, calcium was 8.7. Her prothrombin time, INR and aPTT were all normal. Urinalysis was essentially unremarkable. As I stated earlier, the CT scan of the abdomen and pelvis as well as chest showed the heart is normal in size, no pericardial or pleural effusion, clear and neck base. No enlarged axillary, mediastinal or hilar lymphadenopathy. No mediastinal hematoma. No pneumothorax, no focal consolidation, no suspicious bony lesions and no acute fracture. Her liver, spleen and adrenals and kidneys are within normal limits, status post cholecystectomy and enlarged little bit toenail of pelvic adenopathy. No free pelvic fluid. No pneumoperitoneum, no bowel obstruction. Uterus is present 2.4 cm low attenuating lesion and is seen in the right ovary, most likely simple cyst. Urinary bladder is within normal limits. No acute fracture. Her cervical spine x-ray showed that the patient has post-surgical changes with fusion of C3-C4, C4-C5 identified degenerative spondylosis with loss of disk height and spurring at other levels C7 and T1 are poorly seen. No evidence of loss of vertebral body height or definite fracture or prevertebral soft tissue appears within normal limits. Alignment appears intact. The right-sided rib view showed no evidence of fracture. ASSESSMENT AND PLAN: The patient will be transferred to [facility] to continue with pain management and to consult the neurosurgical team as she underwent recent surgery for her cervical spine stenosis. DA CASTRO MD DR: MELLY/adriana JOB#: [id number] / [id number]
--- NOTE | 2018-10-01 14:20 | NUR ---
Patient is transferred to [facility] for higher level of care. Patient is transferred [facility]. Patient is stable at time of d/c.
[2018-10-01] MEDS ORDERED: TOPIRAMATE 25 MG TABLET. PO SCH (21:00)
[2018-10-01] MEDS ORDERED: lamoTRIgine 150 MG TABLET. PO SCH (21:00)
[2018-10-01] MEDS ORDERED: MAGNESIUM HYDROXIDE 2,400 MG/30 ML ORAL.SUSP. PO SCH (21:00)
[2018-10-01] MEDS ORDERED: ARIPiprazole 15 MG TABLET PO SCH (21:00)
[2018-10-01] MEDS ORDERED: NORTRIPTYLINE 25 MG CAPSULE PO SCH (21:00)
[2018-10-01] MEDS ORDERED: DULoxetine HCL 60 MG CAPSULE.DR PO SCH (21:00)
[2018-10-01] MEDS ORDERED: clonazePAM 0.5 MG TABLET PO SCH (21:00)
--- NOTE | 2018-10-01 21:27 | EKG ---
[address] [address] Test Date: 2018-09-30 Test Time: 23:18:59 Pat Name: EWELINA CONNOLLY Department: Room: 120 A Gender: F Medical Reviewer: : 1970 Requested By: MAGI DOW Order Number: [id number] Reading MD: Emile Cervantes MD Measurements Intervals [place] Rate: 82 P: 26 W[place]: 146 QRS: -3 QRSD: 92 T: 19 QT: 390 QTc: 459 Interpretive Statements SINUS RHYTHM NON-SPECIFIC ST/T CHANGES Electronically Signed On 10-10-2018 22:11:00 CDT by Emile Cervantes MD
== END 2018-10-01 14:20 | disposition short-term general hospital (02) | DRG 552 ==
LOC: ER 19:15 → 1 SOUTH 10-01 00:11
PROVIDERS: ADMIT Internal Medicine; ATTEND Internal Medicine
DX: M54.2 Cervicalgia (principal); W10.8XXA Fall (on) (from) other stairs and steps, initial encounter; M25.511 Pain in right shoulder; I10 Essential (primary) hypertension; G43.909 Migraine, unspecified, not intractable, without status migrainosus; Z79.899 Other long term (current) drug therapy; Y93.89 Activity, other specified; Y92.89 Other specified places as the place of occurrence of the external cause; Y99.8 Other external cause status; Z90.49 Acquired absence of other specified parts of digestive tract; Z91.19 Patient's noncompliance with other medical treatment and regimen; Z98.1 Arthrodesis status
CPT/HCPCS: 36415; 71260; 74177; 80048; 80076; 81001; 81025; 82550; 83880; 84484; 85025; 85610; 85730; 93005; 96361; 96372; 96374; 96375; 96376; J1170; J2270; J2360; J2405; J7120; Q9967; 99285-25

== ENCOUNTER → 2018-11-02 | Outpatient (CLI) | payer OTHER ==
[~2018-11-02] MED LIST changes: +ARIP15TA36 PO; +LAMO150T2 PO; +LISI-334 PO
--- NOTE | 2018-11-02 14:31 | RAD ---
2 view study of both knees Clinical indications: Bilateral knee pain. Osteoarthritis. Right knee: No acute fracture or dislocation or lytic process is seen. There is minimal degenerative spurring of the patellofemoral joint compartment and the lateral tibial femoral joint compartment without significant joint space narrowing. No significant knee joint effusion is seen radiographically. Left knee: Minimal degenerative spurring of the patellofemoral joint compartment is seen. No significant degenerative spurring or joint space narrowing of the medial or lateral tibial femoral joint compartments is seen. No acute fracture or dislocation or lytic process is seen. No significant left knee joint effusion is seen radiographically. IMPRESSION: Mild degenerative osteoarthritis of both knees. Electronically signed by: Kilo Mcdermott MD (11/02/2018 2:29 PM) [facility]
== END | disposition home or self-care (01) ==
LOC: DXRAD 10:05
PROVIDERS: ATTEND Physician Assistant
DX: M17.0 Bilateral primary osteoarthritis of knee (principal)
CPT/HCPCS: 73560

== ENCOUNTER → 2018-11-13 | Outpatient (CLI) | payer OTHER | END | disposition home or self-care (01) | LOC: PMG 18:02 | PROVIDERS: ATTEND Registered Nurse | DX: L98.9 Disorder of the skin and subcutaneous tissue, unspecified (principal); L03.90 Cellulitis, unspecified; R10.9 Unspecified abdominal pain; W57.XXXA Bitten or stung by nonvenomous insect and other nonvenomous arthropods, initial encounter; Y93.89 Activity, other specified; Y92.89 Other specified places as the place of occurrence of the external cause; Y99.8 Other external cause status | CPT/HCPCS: 36415; 86617; 86618 ==

== ENCOUNTER → 2020-04-26 | Outpatient (CLI) | payer BC ==
[~2020-04-26] MED LIST changes: -CLON0.5T11 PO; +CLON0.5T4 PO; +DOXY-96 PO; -DOXY100T9 PO; -LAMO100T PO; +LAMO100T8 PO; -LAMO150T2 PO; +LAMO150T4 PO
[2020-04-26 10:22] LABS: BASO % 1 % (0-3); EOS # 0.1 x10^3/uL (0.0-0.7); EOS % 2 % (0-3); HEMATOCRIT 39.9 % (36.0-47.0); HEMOGLOBIN 13.1 g/dL (12.0-15.5); LYMPH # 1.5 x10^3/uL (1.0-4.8); LYMPH % 24 % (24-48); MEAN CORPUSCULAR HEMOGLOBIN 30 pg (25-35); MEAN CORPUSCULAR HGB CONC 33 g/dL (31-37); MEAN CORPUSCULAR VOLUME 91 fL (79-100); MONO # 0.5 x10^3/uL (0.0-1.1); MONO % 8 % (0-9); NEUT # 4.3 x10^3uL (1.8-7.7); NEUT % 66 % (31-73); PLATELET COUNT 242 x10^3/uL (140-400); RED BLOOD COUNT 4.38 x10^6/uL (3.50-5.40); RED CELL DISTRIBUTION WIDTH 13.7 % (11.5-14.5); WHITE BLOOD COUNT 6.5 x10^3/uL (4.0-11.0)
[2020-04-26 10:49] LABS: ALBUMIN 3.4 g/dL (3.4-5.0); ALBUMIN/GLOBULIN RATIO 0.9 (1.0-1.7); CALCIUM 8.6 mg/dL (8.5-10.1); GFR 59.2; POTASSIUM 4.4 mmol/L (3.5-5.1); TOTAL BILIRUBIN 0.4 mg/dL (0.2-1.0); TOTAL PROTEIN 7.2 g/dL (6.4-8.2)
[2020-04-26 16:23] LABS: FREE T4 0.73 ng/dL (0.76-1.46); THYROID STIM HORMONE (TSH) 4.522 uIU/mL (0.358-3.740)
== END | disposition home or self-care (01) ==
LOC: LAB 09:13
PROVIDERS: ATTEND Internal Medicine Hematology & Oncology
DX: K61.1 Rectal abscess (principal)
CPT/HCPCS: 36415; 80053; 82728; 84439; 84443; 85025; 86800

== ENCOUNTER → 2020-05-01 | Outpatient (CLI) | payer BC, OTHER ==
[~2020-05-01] MED LIST changes: +IOHEXOL 300 MG/ML 75 ML VIAL. IV ONE
--- NOTE | 2020-05-01 15:28 | RAD ---
NECK SOFT TISSUE History: Reason: RT NECK LUMP, HX OF COMPLETE THYROIDECTOMY / Spl. Instructions: / History: Comparison: March 03, 2018 Technique: Multiple grayscale and color Doppler images of the right neck soft tissues. Findings: Small lymph node within the right neck measures 1.1 x 0.9 x 0.57 m. Normal fatty hilum. This is in the region of the patient's palpable concern. Patent vasculature in this region. IMPRESSION: 1. Small benign-appearing lymph node within the region of the patient's palpable concern. Recommend continued clinical follow-up. If interval growth, recommend imaging follow-up. Electronically signed by: Vic Epps DO (05/01/2020 3:25 PM) [id number]
--- NOTE | 2020-05-01 15:39 | RAD ---
CT SOFT TISSUE NECK W/CONTRAST History:Reason: LUMP, HX OF THROID CANCER / Spl. Instructions: / History: Technique: CT imaging was performed of the neck soft tissues with intravenous contrast. Coronal and sagittal reconstructions were performed. Exposure: One or more of the following individualized dose reduction techniques were utilized for this examination: 1. Automated exposure control 2. Adjustment of the mA and/or kV according to patient size 3. Use of iterative reconstruction technique. Comparison: None Findings: Normal appearance of the bilateral submandibular and parotid glands. Postoperative changes prior thyroidectomy. Small lymph nodes bilaterally within the deep cervical chain, right greater than left. Largest lymph node on the right level 2 measures 0.6 x 0.67 m. Imaged lung apices are unremarkable. Imaged paranasal sinuses and mastoid air cells are clear. Imaged orbits and intracranial contents are unremarkable. Anterior stabilization and interbody fusion C3-C5. Multilevel cervical spondylosis. Impression: 1. Small bilateral deep cervical chain lymph nodes. No pathologically enlarged lymph nodes. Recommend continued clinical follow-up. 2. Prior thyroidectomy. Electronically signed by: Vic Epps DO (05/01/2020 3:36 PM) [id number]
== END ==
LOC: US 14:09
PROVIDERS: ATTEND Internal Medicine
DX: C73 Malignant neoplasm of thyroid gland (principal); R22.1 Localized swelling, mass and lump, neck; M43.22 Fusion of spine, cervical region; M47.812 Spondylosis without myelopathy or radiculopathy, cervical region; Z90.89 Acquired absence of other organs
CPT/HCPCS: 70491; 76536; Q9967

== ENCOUNTER → 2020-05-30 | Outpatient (CLI) | payer BC ==
[~2020-05-30] MED LIST changes: -IOHEXOL 300 MG/ML 75 ML VIAL. IV ONE; -NABU500T PO; +NABU500T7 PO
[2020-05-30 15:36] LABS: ALBUMIN 3.4 g/dL (3.4-5.0); ALBUMIN/GLOBULIN RATIO 0.9 (1.0-1.7); CALCIUM 8.3 mg/dL (8.5-10.1); CREATININE 0.9 mg/dL (0.6-1.0); GFR 66.8; POTASSIUM 4.1 mmol/L (3.5-5.1); TOTAL BILIRUBIN 0.2 mg/dL (0.2-1.0)
== END ==
LOC: LAB 14:14
PROVIDERS: ATTEND Internal Medicine Hematology & Oncology
DX: D64.9 Anemia, unspecified (principal)
CPT/HCPCS: 36415; 80053; 82728

== ENCOUNTER → 2020-08-16 | Outpatient (CLI) | payer BC ==
[2020-08-16 10:19] LABS: ALBUMIN 3.7 g/dL (3.4-5.0); CALCIUM 8.5 mg/dL (8.5-10.1); GFR 58.9; POTASSIUM 4.4 mmol/L (3.5-5.1); TOTAL BILIRUBIN 0.3 mg/dL (0.2-1.0); TOTAL PROTEIN 7.4 g/dL (6.4-8.2)
== END ==
LOC: LAB 09:04
PROVIDERS: ATTEND Internal Medicine
DX: C73 Malignant neoplasm of thyroid gland (principal); E89.0 Postprocedural hypothyroidism
CPT/HCPCS: 80053; 84443

== ENCOUNTER → 2020-09-04 | Outpatient (CLI) | payer BC ==
[~2020-09-04] MED LIST changes: -LISI-334 PO; +LISI10TA16 PO; -LISI10TA2 PO; +LISI20TA18 PO
[2020-09-04 12:40] LABS: ALBUMIN 3.4 g/dL (3.4-5.0); ALBUMIN/GLOBULIN RATIO 0.9 (1.0-1.7); CALCIUM 8.3 mg/dL (8.5-10.1); CREATININE 0.9 mg/dL (0.6-1.0); GFR 66.5; POTASSIUM 4.5 mmol/L (3.5-5.1); TOTAL BILIRUBIN 0.3 mg/dL (0.2-1.0); TOTAL PROTEIN 7.1 g/dL (6.4-8.2)
[2020-09-04 23:10] LABS: ALPHA 1 ANTITRYPSIN 122 mg/dL (101-187)
[2020-09-05 15:08] LABS: CERULOPLASMIN 26.1 mg/dL (19.0-39.0)
[2020-09-06 19:15] LABS: MITOCHONDRIAL ABDY <20.0 Units (0.0-20.0); SMOOTH MUSCLE AB 8 Units (0-19)
[2020-09-07 15:07] LABS: ANA INTERP Negative (.)
[2020-09-09 03:07] LABS: ALKPHOS BONE 23 % (14-68); ALKPHOS INTES% 8 % (0-18); ALKPHOS LIV 69 % (18-85); ALPHOS TOT 132 IU/L (39-117)
== END ==
LOC: LAB 08:56
PROVIDERS: ATTEND Internal Medicine
DX: R74.8 Abnormal levels of other serum enzymes (principal)
CPT/HCPCS: 36415; 80053; 82103; 82390; 82728; 83516; 83540; 83550; 84075; 86038; 86705; 86709; 86803; 87340

== ENCOUNTER → 2020-09-04 | Outpatient (CLI) | payer BC ==
--- NOTE | 2020-09-04 14:40 | RAD ---
CLINICAL HISTORY: Reason: ELEVATED PHOS LEVEL / Spl. Instructions: / History: COMPARISON: None available. TECHNIQUE: Ultrasound of the upper abdomen was performed. FINDINGS: The liver measures 18 cm in length in the right mid clavicular line. Increased hepatic echogenicity relative to the right kidney consistent with hepatic steatosis.. There are no focal liver lesions. F low seen within the portal veins. There has been a cholecystectomy. The common bile duct is not visualized, obscured by overlying struc tures. The spleen is mildly enlarged in size, measuring 12.6 cm. The head of the pancreas is unremarkable. The remainder is obscured by intestinal gas.. The right kidney measures 10.3 cm in bipolar length. The left kidney measures 10.1 cm in bipolar agustina th. Normal renal cortical echogenicity. No focal renal lesion. No hydronephrosis. Visualized portions of the abdominal aorta and inferior vena cava are unremarkable, although the danelle rity of aorta is obscured. There is no free fluid in the upper abdomen. IMPRESSION: 1. There has been a cholecystectomy. Common bile duct is not visualized. 2. Borderline hepatomegaly. Echogenic appearance of the liver likely fatty liver. Electronically signed by: Petar Hodges MD (09/04/2020 2:38 PM) [id number]
== END ==
LOC: US 08:47
PROVIDERS: ATTEND Internal Medicine
DX: R74.8 Abnormal levels of other serum enzymes (principal); Z90.49 Acquired absence of other specified parts of digestive tract
CPT/HCPCS: 76700